=== PATIENT | male | born 1950 | race Caucasian/White ===

== ENCOUNTER 2018-04-20 12:22 | Outpatient (REF) | payer MEDICARE, BC, SELFPAY ==
[2018-04-20 14:23] LABS: COMMENT (LAB VIEW ONLY) 128.94 mg/dL; Microalb ug/mg Crea 40.9 ug/mg Cr
== END 2018-04-20 12:42 ==
LOC: NCHCN 12:22
PROVIDERS: PCP Family Medicine; Visit Provider Family Medicine
DX: E11.9 Type 2 diabetes mellitus without complications (principal)
CPT/HCPCS: 82043; 82570

== ENCOUNTER 2018-05-19 08:22 | Emergency (ER) | payer MEDICARE, BC, SELFPAY ==
[2018-05-19 08:25] VITALS: BP 169/67; PULSE 91; RESP 16; TEMP 36.6; O2SAT 98
[2018-05-19 08:44] LABS: Bilirubin Negative (Negative); Blood Moderate (Negative); Clarity Sl Cloudy; Glucose 250 mg/dL (Negative); Ketones Negative (Negative); Leukocyte Esterase Large (Negative); Nitrite Positive (Negative); Urobilinogen 0.2 EU/dL (Up TO 0.2); pH 6.5 (5-8)
[2018-05-19 08:51] LABS: Bacteria Moderate HPF (Negative); C & S Indicated? Yes; Casts Negative LPF (Negative); Crystals Negative HPF (Negative); Epithelial Cells Negative HPF (Negative); Mucus Negative (Negative); RBC 20-50 (0-2); WBC >50 HPF (0-5)
--- NOTE | 2018-05-19 09:22 | NUR.NOTE ---
Provider is at the bedside.
--- NOTE | 2018-05-19 09:27 | ED.GENADUL_ITS ---
Discharge Plan Disposition Patient Disposition: HOME Condition: Good Discharge Details Chief Complaint: Urinary Clinical Impression: Acute UTI, Contusion of knee Primary Care Provider: Tanner Oconnor ED Provider: Fito Sutton Home Meds and New Rx's Prescriptions: New sulfamethoxazole-trimethoprim [Bactrim DS] 800-160 mg tablet 1 tab PO BID Qty: 14 RF: 0 phenazopyridine [Pyridium] 100 mg tablet 100 mg PO TID 0 Days Qty: 6 RF: 0 No Action nitroglycerin 0.4 MG tablet, sublingual 0.4 mg Sublingual PRN RF: 0 amlodipine 10 MG tablet 10 mg PO DAILY RF: 0 losartan 100 MG tablet 100 mg PO DAILY RF: 0 aspirin 81 MG tablet,delayed release (DR/EC) 81 mg PO DAILY AM RF: 0 insulin lispro [Humalog U-100 Insulin] 100 UNIT/1 ML cartridge 100 unit SQ PER PROTOCOL RF: 0 rosuvastatin [Crestor] 20 MG tablet 20 mg PO DAILY AM RF: 0 levothyroxine [Tirosint] 50 MCG capsule 50 mcg PO DAILY RF: 0 dofetilide [Tikosyn] 250 mcg Capsule 250 mcg PO Q12H RF: 0 metoprolol succinate 50 MG tablet extended release 24 hr 50 mg PO BID RF: 0 clobetasol 15 GM cream 15 gm Topical DIRECTED RF: 0 furosemide 80 MG tablet 80 mg PO DAILY RF: 0 cholecalciferol (vitamin D3) [Vitamin D3] 2,000 UNIT tablet 2,000 unit PO DAILY RF: 0 rivaroxaban [Xarelto] 20 MG tablet 20 mg PO DAILY RF: 0 Discharge Instructions Instructions: Urinary Tract Infection in Men (ED), Contusion in Adults (ED) Referrals: Tanner Oconnor [Primary Care Provider] - Return if symptoms worsen Medical Decision Making Will x-ray right knee and UA. Low threshold to treat UTI in diabetic and history of spleenectomy with fever and chills. Pt apprised of Ua and x-ray results. He already sees Dr. Valles so we will place him on orthopedic list for f/u. Nurse fitted him for knee immobilizer, advised to partial weight bear until further instruction from Dr. Valles. His injury and pain is on the medial side of the knee. The x-ray mentioned the lateral side. I do not see a fracture. For the UTI we chose Bactrim over Cipro because Bactrim only has contraindications with Tykosin and Cipro has severe interaction. Pt aware and will return if he has in adverse side affects. Culture is pending. Imaging Data Radiologic Study: Imaging: X-Ray My impression: No acute fracture Radiologist's impression: V-Rad: 1. Small lucency along the articular surface of the lateral femoral condyle, suggesting osteochondral injury. This may been present on 03/15/13, now better visualized with positional differences. May consider MRI for better characterization. 2. Similiar degenrative changes. 3. Mild suprapatellar soft tissue fullness suggesting effusion and/or synovial hypertrophy. Lab Data Lab results reviewed: Yes I reviewed the patient's lab results. Lab results narrative: Positive nitrite, large leukocyte esterase, 20-50 RBC, > 50 WBC, and large amount of blood. Equals UTI. HPI General Date/Time Provider Initiated Documentation: 05/19/18 09:17 . Limitations to Documentation: no limitations . Information obtained by: patient . History of Present Illness 67 year old M presents to the emergency department with the chief complaint of UTI and knee pain, HPI Narrative: 67 y/o male here with c/o UTI symptoms and right knee pain. The uti symptoms started a few days ago with frequency and burning. Denies back pain but did have chills last night. He is a insulin dependent diabetic and tells me e is uncircumcised and is followed by urology. He has history of severe pancreatitis and has had multiple abdominal surgeries including spleenectomy. He also describes an injury to the right knee. Approximately one week ago he was carrying a bucket of sand when the bucket swung in and struck the medial side of his right knee. The was significantly swollen at the time but he did not think he needed evaluation at that time. He has been icing and elevating which helps with the swelling but not the pain. Related Data Home Medications Medication Instructions Recorded Confirmed aspirin 81 mg PO DAILY AM 09/05/12 05/19/18 insulin lispro [Humalog U-100 100 unit SQ PER PROTOCOL 09/05/12 05/19/18 Insulin] rosuvastatin [Crestor] 20 mg PO DAILY AM 09/05/12 05/19/18 nitroglycerin 0.4 mg SUBLINGUAL PRN 07/17/13 05/19/18 levothyroxine [Tirosint] 50 mcg PO DAILY 11/09/15 05/19/18 amlodipine 10 mg PO DAILY tab-cap 09/08/16 05/19/18 losartan 100 mg PO DAILY tab-cap 09/08/16 05/19/18 cholecalciferol (vitamin D3) 2,000 unit PO DAILY 02/10/17 05/19/18 [Vitamin D3] clobetasol 15 gm TOPICAL DIRECTED 02/10/17 05/19/18 furosemide 80 mg PO DAILY 02/10/17 05/19/18 metoprolol succinate 50 mg PO BID 02/10/17 05/19/18 rivaroxaban [Xarelto] 20 mg PO DAILY 02/10/17 05/19/18 dofetilide [Tikosyn] 250 mcg PO Q12H 05/19/18 05/19/18 phenazopyridine [Pyridium] 100 mg PO TID 0 Days #6 tab 05/19/18 sulfamethoxazole-trimethoprim 1 tab PO BID #14 tab 05/19/18 [Bactrim DS] Previous Rx's Medication Instructions Recorded phenazopyridine [Pyridium] 100 mg PO TID 0 Days #6 tab 05/19/18 sulfamethoxazole-trimethoprim 1 tab PO BID #14 tab 05/19/18 [Bactrim DS] Allergies Allergy/AdvReac Type Severity Reaction Status Date / Time nifedipine [From Procardia] AdvReac Severe Muscle Unverified 05/19/18 08:30 Spasm prochlorperazine maleate AdvReac Severe Muscle Unverified 05/19/18 08:30 [From Compazine] Spasm atorvastatin calcium AdvReac Muscle Unverified 05/19/18 08:30 [From Lipitor] Cramping General Stated Complaint: Urinary HELDER: 3 Review of Systems Cardiovascular Reports system reviewed and no additional complaints, except as docu Respiratory Reports system reviewed and no additional complaints, except as docu Gastrointestinal Reports system reviewed and no additional complaints, except as docu Genitourinary Reports urinary frequency, Reports urinary hesitancy, Reports urinary urgency and Reports other (burn with urination) Musculoskeletal Reports system reviewed and no additional complaints, except as docu PFSH Medical History Benign hypertension CORONARY ARTERY DISEASE Diabetes mellitus Hyperlipidemia Paroxysmal atrial fibrillation Social History Smoking/Tobacco Use Status: Never Surgical History EXCISION (09/10/08) Fasciectomy, Palmar (09/10/08) Repair, Rotator Cuff (09/12/12) Stent placement Exam Const General: cooperative, healthy appearing, comfortable and no acute distress Orientation: alert, awake and oriented x3 [facility] Head: atraumatic Ears: hearing grossly normal bilaterally and external ears normal General nose exam: external nose normal and nares normal Eyes General: appearance normal, both eyes and all related structures Neck Neck: normal visual inspection and full ROM Resp Effort & Inspection: normal respiratory effort and able to speak in complete sentences Auscultation: clear to auscultation bilaterally Cardio Rate: regular rate Rhythm: regular rhythm GI Inspection: scar (midline) Palpation: soft and tender in the LLQ; with no rebound tenderness Back/Spine/Pelvis Back: no CVA tenderness Skin General skin exam: no rashes or lesions noted Neuro General: alert, awake, oriented x3 and gait normal Extrem General: normal to inspection, full ROM (with pain) and no calf tenderness Right lower extremity: full ROM (with pain), normal capillary refill and knee Details: normal to inspection, tenderness Location: of the medial joint line, of the pre-patellar area and of the proximal tibia, abnormal ROM Details: pain with active ROM during Details: in flexion and pain with passive ROM during Details: in flexion and knee ligament exam normal; abnormal to inspection (well healed scar to midline of knee. ), no edema and joint enlargement noted Course Vital Signs Temperature 36.6 C 05/19/18 08:25 Pulse 91 H 05/19/18 08:25 Respiratory Rate 16 05/19/18 08:25 Blood Pressure 169/67 H 05/19/18 08:25 Pulse Oximetry 98 05/19/18 08:25 Temperature 36.6 C 05/19/18 08:25 Temperature Source Temporal Artery Scan 05/19/18 08:25 Pulse 91 H 05/19/18 08:25 Respiratory Rate 16 05/19/18 08:25 Respiratory Effort 05/19/18 09:04 Blood Pressure 169/67 H 05/19/18 08:25 Blood Pressure Position Sitting 05/19/18 08:25 Pulse Oximetry 98 05/19/18 08:25 Oxygen Delivery Method Room Air 05/19/18 08:25 Oxygen Flow Rate 0 05/19/18 08:25 Pain Level 0 05/19/18 08:25 Lab/Test Results Lab/Test Results: 05/19/18 08:35 Urine - Reflex from Ua Urine Culture - Pending Laboratory Tests Range/Units 05/19/18 08:35 Urine Color (Yellow) Yellow Urine Clarity Sl cloudy Urine pH (5-8) 6.5 Ur Specific [place] (1.005-1.025) 1.020 Urine Protein (Negative) mg/dL 100 H Urine Ketones (Negative) mg/dL Negative Urine Blood (Negative) Moderate H Urine Nitrite (Negative) Positive H Urine Bilirubin (Negative) Negative Urine Urobilinogen (Up TO 0.2) EU/dL 0.2 Ur Leukocyte Esterase (Negative) Large H Urine RBC (0-2) 20-50 H Urine WBC (0-5) HPF >50 Ur Epithelial Cells (Negative) HPF Negative Urine Crystals (Negative) HPF Negative Urine Bacteria (Negative) HPF Moderate Urine Casts (Negative) LPF Negative Urine Mucus (Negative) Negative Ur Culture Indicated? Yes Urine Glucose (Negative) mg/dL 250 H
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
[2018-05-19 10:39] VITALS: BP 143/76; PULSE 86
[2018-05-19] MEDS: Sulfameth/Trimeth DS TAB 1 TAB PO (10:45)
[2018-05-19] MEDS: Phenazopyridine 100 MG TAB PO (10:45)
== END 2018-05-19 10:44 | disposition home or self-care (01) ==
LOC: ER 10:49
PROVIDERS: Emergency Provider Nurse Practitioner Family; PCP Family Medicine
DX: N39.0 Urinary tract infection, site not specified (principal); B96.20 Unspecified Escherichia coli [E. coli] as the cause of diseases classified elsewhere; S80.01XA Contusion of right knee, initial encounter; W00.0XXA Fall on same level due to ice and snow, initial encounter
CPT/HCPCS: 29505; 73562; 87077; 99283; 81003; 81015; 87086; 87186; L1830

== ENCOUNTER → 2018-05-22 10:51 | Outpatient (BNVA) | payer MEDICARE, BC, SELFPAY | PROVIDERS: PCP Family Medicine; Referring Provider Family Medicine; Visit Provider Orthopaedic Surgery | DX: S80.01XA Contusion of right knee, initial encounter (principal); W00.0XXA Fall on same level due to ice and snow, initial encounter; I10 Essential (primary) hypertension; E11.9 Type 2 diabetes mellitus without complications; Z79.4 Long term (current) use of insulin | CPT/HCPCS: 99211; 99214 ==

== ENCOUNTER 2018-06-20 11:09 | Outpatient (REF) | payer MEDICARE, BC, SELFPAY ==
[2018-06-20 20:19] LABS: Anion Gap 6.4 mmol/L (3-11); BUN 18 mg/dL (7-18); CO2 32.6 mmol/L (21.0-32.0); CREATININE 0.98 mg/dL (0.70-1.30); Calcium 9.1 mg/dL (8.5-10.1); Chloride 102 mmol/L (98-107); Glucose 98 mg/dL (70-100); LDL CHOLESTEROL 66 mg/dL (<100); Magnesium 1.8 mg/dL (1.8-2.4); Potassium 4.1 mmol/L (3.5-5.1); Sodium 141 mmol/L (136-145); TSH (W/Ref FT4) 3.92 uIU/mL (0.358-3.74); Vitamin B12 579 pg/mL (193-986)
[2018-06-20 20:40] LABS: FREE T4 1.14 ng/dL (0.76-1.46)
== END 2018-06-20 11:29 ==
LOC: NCHCN 11:09
PROVIDERS: PCP Family Medicine; Visit Provider Family Medicine
DX: E78.5 Hyperlipidemia, unspecified (principal); I25.10 Atherosclerotic heart disease of native coronary artery without angina pectoris; E11.9 Type 2 diabetes mellitus without complications; E03.9 Hypothyroidism, unspecified
CPT/HCPCS: 80048; 83721; 82607; 83735; 84439; 84443

== ENCOUNTER 2019-04-03 19:02 | Emergency (ER) | payer OTHER, SELFPAY ==
[2019-04-03 19:31] VITALS: BP 147/61; PULSE 67; RESP 18; TEMP 36.4; O2SAT 97
[2019-04-03 21:11] LABS: Abs Immature Grans 0.03 k/cumm (0.0-0.09); Absolute Basophil Count 0.04 k/cumm (0.0-0.2); Absolute Eosinophil Count 0.17 k/cumm (0.0-0.7); Absolute Lymphocyte Count 2.33 k/cumm (1.2-3.4); Absolute Monocyte Count 1.02 k/cumm (0.11-0.7); Absolute Neutrophil Count 7.49 k/cumm (1.2-6.7); Basophils % 0.4; Eosinophils % 1.5; HCT 43.3 % (40.0-50.0); HGB 14.8 g/dL (13.5-17.5); Immature Grans % 0.3; Mean Corp. HGB Concentration 34.2 g/dL (32.0-36.0); Mean Corpuscular Hemoglobin 32.6 pg (27.0-33.0); Mean Corpuscular Volume 95.4 fL (80-95); Mean Platelet Volume 11.5 fL (8.0-11.0); Monocytes % 9.2; Neutrophils % 67.6; Platelet Count 236 x1000/uL (130-400); RBC 4.54 m/cumm (4.50-6.00); RBC Distribution Width 13.9 % (11.8-14.1); White Blood Cell Count 11.08 k/cumm (4.4-10.8)
[2019-04-03 21:21] LABS: Bilirubin Negative (Negative); Blood Moderate (Negative); Clarity Clear (Clear); Glucose 500 mg/dL (Negative); Ketones Negative (Negative); Leukocyte Esterase Negative (Negative); Nitrite Negative (Negative); Specific Gravity 1.015 (1.005-1.025); Urobilinogen 0.2 EU/dL (Up TO 0.2); pH 5.5 (5-8)
[2019-04-03 21:23] LABS: ALT 30 U/L (16-63); AST 25 U/L (15-37); Albumin 3.8 g/dL (3.4-5.0); Alkaline Phosphatase 121 U/L (46-116); Anion Gap 9.5 mmol/L (3-11); BUN 18 mg/dL (7-18); Bilirubin, Total 0.3 mg/dL (0.2-1.0); CO2 27.5 mmol/L (21.0-32.0); CREATININE 0.93 mg/dL (0.70-1.30); Calcium 8.6 mg/dL (8.5-10.1); Chloride 101 mmol/L (98-107); Glucose 225 mg/dL (70-100); Magnesium 2.1 mg/dL (1.8-2.4); Potassium 4.3 mmol/L (3.5-5.1); Sodium 138 mmol/L (136-145); Total Protein 8.1 g/dL (6.4-8.2)
[2019-04-03 21:29] LABS: *AMPHETAMINES SCREEN URINE Negative (Negative); *BARBITURATES SCREEN URINE Negative (Negative); *BENZODIAZEPINES SCREEN URINE Negative (Negative); Cannabinoids THC Negative (Negative); Cocaine Screen,Urine Negative (Negative); METHADONE URINE SCREEN Negative (Negative); OPIATES URINE SCREEN Negative (Negative)
[2019-04-03 21:30] LABS: Bacteria Negative HPF (Negative); C & S Indicated? No; Casts Negative LPF (Negative); Crystals Negative HPF (Negative); Epithelial Cells Negative HPF (Negative); Mucus Negative (Negative); RBC 20-50 (0-2)
[2019-04-03] MEDS: Acetaminophen 500 MG TAB 1000 MG PO (21:36)
[2019-04-03 21:40] LABS: Tricyclic Antidepressants Negative (Negative)
--- NOTE | 2019-04-03 22:09 | DI.RAD_ITS ---
EXAM: XR CLAVICLE RT INDICATION: fall, mid clavicular pain. COMPARISON: No exams were available for comparison TECHNIQUE: 2D digital imaging was performed. FINDINGS: Two views were obtained. There are marked degenerative changes involving the glenohumeral joint and there are suture anchors in the humeral head. There is a moderately displaced moderately comminuted mid clavicular fracture. No other acute fracture seen. IMPRESSION:
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
[2019-04-03 23:50] VITALS: BP 130/62; PULSE 64; RESP 16; O2SAT 95
--- NOTE | 2019-04-03 23:51 | NUR.NOTE ---
Sling applied to right arm. Discharge instructions reviewed with verbal understanding. Aware to f/u with ortho. Ambulated to exit with steady gait.
== END 2019-04-03 23:50 | disposition home or self-care (01) ==
PROVIDERS: Emergency Provider Nurse Practitioner Family; PCP Family Medicine
DX: S42.021A Displaced fracture of shaft of right clavicle, initial encounter for closed fracture (principal); E11.9 Type 2 diabetes mellitus without complications; I10 Essential (primary) hypertension; V17.0XXA Pedal cycle driver injured in collision with fixed or stationary object in nontraffic accident, initial encounter; Z79.4 Long term (current) use of insulin
CPT/HCPCS: 36415; 80053; 80307; 99283; 73000; 80320; 81003; 81015; 83735; 84443; 84484; 85025; 99282; L3650

== ENCOUNTER 2019-04-17 14:59 | Outpatient (CLI) | payer OTHER, SELFPAY ==
--- NOTE | 2019-04-17 14:46 | DI.RAD_ITS ---
EXAM: XR CLAVICLE RT INDICATION: F/U FRACTURE. COMPARISON: XR CLAVICLE RT from 04/03/2019 TECHNIQUE: 2D digital imaging was performed. FINDINGS: When compared with the previous examination of 04/03/2019, there has been no interval change in the ap position or alignment of the clavicular fracture.
== END 2019-04-17 15:19 ==
PROVIDERS: PCP Family Medicine; Referring Provider Family Medicine; Visit Provider Student in an Organized Health Care Education/Training Program
DX: S42.021A Displaced fracture of shaft of right clavicle, initial encounter for closed fracture (principal)
CPT/HCPCS: 99204; 99215; 73000

== ENCOUNTER 2019-05-06 18:49 | Outpatient (REF) | payer OTHER, SELFPAY ==
[2019-05-06 19:00] LABS: TSH (W/Ref FT4) 3.59 uIU/mL (0.36-3.74)
== END 2019-05-06 19:09 ==
LOC: NCHCN 18:49
PROVIDERS: PCP Family Medicine; Visit Provider Family Medicine
DX: E03.9 Hypothyroidism, unspecified (principal)
CPT/HCPCS: 84443

== ENCOUNTER 2019-12-31 13:12 | Outpatient (REF) | payer OTHER, SELFPAY ==
[2020-01-04 19:28] LABS: SARS-CoV-2 RNA Undetected (Undetected)
== END 2019-12-31 13:32 ==
LOC: NCHCN 13:12
PROVIDERS: Nurse Practitioner Family; PCP Family Medicine; Visit Provider Family Medicine
DX: Z20.828 Contact with and (suspected) exposure to other viral communicable diseases (principal)
CPT/HCPCS: U0003

== ENCOUNTER 2020-01-17 04:03 | Outpatient (CLI) | payer OTHER, SELFPAY ==
--- NOTE | 2020-01-17 | DI.CT_ITS ---
EXAM: CT ABDOMEN PELVIS WO/W CLINICAL HISTORY: HEMATURIA,R31.9,RT FLANK PAIN,R10.9 TECHNIQUE: Imaging Protocol: Axial computed tomography images with coronal and sagittal reformatted images were created and reviewed CONTRAST MATERIAL: Intravenous: Omnipaque 350 Contrast volume:100 mL Oral: No COMPARISON: CT RENAL COLIC WO CONTRAST from 02/22/2014 FINDINGS: ABDOMEN: Lung Bases: Normal where visualized. Liver: Normal density. No measurable mass. Portal, Superior Mesenteric, and Splenic Veins: Unremarkable. Gallbladder and Biliary Tract: Cholelithiasis. No biliary ductal dilatation. Pancreas: Normal density, no abnormal calcifications or inflammatory process. Spleen: There are 2 splenules again seen in the left upper quadrant. Adrenals: No masses seen. Kidneys: Normal size, contour and axis. 6 mm non-obstructing stone in the lower pole of the left kidn ey. Bilateral renal cysts. Abdominal Aorta: Abdominal portion non-dilated. Atherosclerosis. Bowel: No obstruction or bowel wall thickening. Appendix is unremarkable. Peritoneal Cavity: No ascites, collection or mesenteric inflammatory response. Lymph Nodes: Within normal limits. Bones: Degenerative changes. Soft Tissues: The patient appears to have a penile implant. Bilateral fat containing inguinal hernia . PELVIS: Bladder: Symmetric distention, no gross wall thickening. Reproductive Organs: Enlarged prostate gland. Lymph Nodes: Within normal limits. Bones: Degenerative changes. IMPRESSION: 1. Left nephrolithiasis no obstructive uropathy. 2. Cholelithiasis. No biliary ductal dilatation. 3. No acute abdominal or pelvic process. RADIATION DOSE DELIVERED: Total DLP Total DLP DATA REPOSITORY: All CT scans at this facility are submitted to the National Radiology Data Registry (NRDR) Dose Index Registry (DIR) with the [employer] ([employer]). RADIATION OPTIMIZATION: All CT scans at this facility use at least one of these dose optimization te chniques: automated exposure control; mA and/or kV adjustment per patient size (includes targeted exa ms where dose is matched to clinical indication); or iterative reconstruction.
[2020-01-17 08:47] LABS: CREATININE 0.82 mg/dL (0.70-1.30)
[2020-01-17] MEDS: Omnipaque 350 MG/ML 100 ML BTL IV (09:20)
[2020-01-17] MEDS: Normal Saline Flush 10 ML SYR IVP (09:21)
[2020-01-17] MEDS: Normal Saline - Diluent 50 ML VIAL IV (09:21)
== END 2020-01-17 04:23 ==
PROVIDERS: PCP Family Medicine; Visit Provider Family Medicine
DX: Z13.9 Encounter for screening, unspecified (principal); N20.0 Calculus of kidney; K80.20 Calculus of gallbladder without cholecystitis without obstruction
CPT/HCPCS: 74178; 82565; J3490

== ENCOUNTER 2020-02-11 22:13 | Outpatient (REF) | payer OTHER, SELFPAY ==
[2020-02-11 20:14] LABS: Anion Gap 9.4 mmol/L (3-11); BUN 19 mg/dL (7-18); CO2 27.6 mmol/L (21.0-32.0); CREATININE 0.98 mg/dL (0.70-1.30); Calcium 8.7 mg/dL (8.5-10.1); Chloride 103 mmol/L (98-107); Glucose 369 mg/dL (74-106); Magnesium 2.1 mg/dL (1.8-2.4); Sodium 140 mmol/L (136-145); TSH (W/Ref FT4) 3.21 uIU/mL (0.36-3.74)
== END 2020-02-11 22:33 ==
LOC: NCHCN 22:13
PROVIDERS: PCP Family Medicine; Visit Provider Family Medicine
DX: I25.10 Atherosclerotic heart disease of native coronary artery without angina pectoris (principal); E03.9 Hypothyroidism, unspecified; R60.0 Localized edema
CPT/HCPCS: 80048; 83735; 84443

== ENCOUNTER 2020-03-13 12:23 | Outpatient (REF) | payer OTHER, SELFPAY | END 2020-03-13 12:43 | LOC: LBN 12:23 | PROVIDERS: PCP Family Medicine; Visit Provider Urology | DX: R39.9 Unspecified symptoms and signs involving the genitourinary system (principal) | CPT/HCPCS: 87077; 87086; 87186 ==

== ENCOUNTER 2020-03-16 10:40 | Outpatient (REF) | payer OTHER, SELFPAY ==
[2020-03-16 19:08] LABS: BUN 15 mg/dL (7-18); CREATININE 0.98 mg/dL (0.70-1.30); Calcium 8.4 mg/dL (8.5-10.1); Chloride 103 mmol/L (98-107); Glucose 296 mg/dL (74-106); Potassium 3.8 mmol/L (3.5-5.1); Sodium 139 mmol/L (136-145)
== END 2020-03-16 11:00 ==
LOC: NCHCN 10:40
PROVIDERS: PCP Family Medicine; Visit Provider Family Medicine
DX: I10 Essential (primary) hypertension (principal)
CPT/HCPCS: 80048

== ENCOUNTER 2020-11-10 21:29 | Outpatient (REF) | payer OTHER, SELFPAY ==
[2020-11-10 13:26] LABS: HCT 29.8 % (40.0-50.0); HGB 9.6 g/dL (13.5-17.5); MCH 29.7 pg (27.0-33.0); MCHC 32.2 % (32.0-36.0); MCV 92.3 fL (80-95); MPV 11.3 fL (8.0-11.0); Platelet Count 303 10^3/uL (130-400); RBC 3.23 10^6/uL (4.36-5.78); RDW-SD 50.9 fL; WBC 5.46 10^3/uL (4.4-10.8)
[2020-11-10 14:18] LABS: Iron 29 ug/dL (65-175); Total Iron Binding Capacity 308 ug/dL (250-450); Transferrin Sat 9 % (20-55)
[2020-11-10 14:27] LABS: Anion Gap 7.7 mmol/L (3-11); BUN 19 mg/dL (7-18); CO2 30.3 mmol/L (21.0-32.0); CREATININE 1.2 mg/dL (0.70-1.30); Calcium 8.4 mg/dL (8.5-10.1); Chloride 101 mmol/L (98-107); Estimated GFR 59.86 (mL/min/1.73m2); Glucose 213 mg/dL (74-106); Potassium 3.6 mmol/L (3.5-5.1); Sodium 139 mmol/L (136-145)
[2020-11-11 09:58] LABS: Hepatitis C Ab w Rflx HCV PCR Negative (Negative)
== END 2020-11-10 21:30 | disposition home or self-care (01) ==
LOC: NCHCN 21:29
PROVIDERS: PCP Family Medicine; Visit Provider Family Medicine
DX: I10 Essential (primary) hypertension (principal); E11.9 Type 2 diabetes mellitus without complications; D64.9 Anemia, unspecified; Z11.59 Encounter for screening for other viral diseases
CPT/HCPCS: 80048; 85027; 86803; 83540; 83550

== ENCOUNTER 2021-12-23 10:19 | Outpatient (REF) | payer OTHER, SELFPAY ==
[2021-12-24 10:58] LABS: COVID-19 RT-PCR UVMMC Result Negative (Negative)
== END 2021-12-23 10:20 | disposition home or self-care (01) ==
LOC: LBN 10:19
PROVIDERS: PCP Family Medicine; Visit Provider Physician Assistant Medical
DX: Z20.822 Contact with and (suspected) exposure to COVID-19 (principal)
CPT/HCPCS: U0003; U0005

== ENCOUNTER 2022-01-07 11:48 | Outpatient (REF) | payer OTHER, SELFPAY ==
[2022-01-07 13:11] LABS: ALT 52 U/L (16-63); AST 36 U/L (15-37); Albumin 3.6 g/dL (3.4-5.0); Alkaline Phosphatase 124 U/L (46-116); Anion Gap 11.1 mmol/L (3-11); BUN 33 mg/dL (7-18); Bilirubin, Total 0.5 mg/dL (0.2-1.0); CO2 29.9 mmol/L (21.0-32.0); CREATININE 1.4 mg/dL (0.70-1.30); Calcium 9.1 mg/dL (8.5-10.1); Chloride 95 mmol/L (98-107); Estimated GFR 49.96 (mL/min/1.73m2); Glucose 369 mg/dL (74-106); Potassium 3.2 mmol/L (3.5-5.1); Sodium 136 mmol/L (136-145); Total Protein 8.3 g/dL (6.4-8.2)
== END 2022-01-07 11:49 | disposition home or self-care (01) ==
LOC: LBN 11:48
PROVIDERS: PCP Family Medicine; Visit Provider Physician Assistant Medical
DX: U07.1 COVID-19 (principal)
CPT/HCPCS: 80053

== ENCOUNTER 2023-02-08 17:15 | Inpatient (IN) | payer MEDICARE, SELFPAY ==
[2023-02-08] VITALS (40 sets, daily range): BP systolic 115–149; BP diastolic 47–104; PULSE 57–102; RESP 14–29; TEMP 38.3; O2SAT 84–95
--- NOTE | 2023-02-08 17:00 | RT.EKG_ITS ---
APPROVED REPORT Exam: Resting ECG Reason for Exam: sob Patient Location: E HR:97 bpm ECG Measurements Heart Rate 97 AXIS TX [id number] P [id number] QRSd 100 QRS 43 QT 449 T 59 QTc 571 Conclusion Atrial fibrillation...V-rate 61-133, irreg A-activity Prolonged QT interval...QTc >500mS QT corrected (Bazett) 407. Nonspecific STTW changes, no STEMI
[2023-02-08 17:49] LABS: BE (Venous) 8 mmol/L (-2-3); HCO3 (Venous) 31 mmol/L (23-28); O2 Sat (Venous) 74 %; TCO2 (Venous) 28 mmol/L (24-29); pCO2 (Venous) 41 mmHg (41-51); pH (Venous) 7.49 (7.31-7.41); pO2 (Venous) 38 mmHg
[2023-02-08 17:51] LABS: Abs Immature Grans 0.39 10^3/uL (0.0-0.06); HCT 38.9 % (40.0-50.0); HGB 13.7 g/dL (13.5-17.5); MCH 33.6 pg (27.0-33.0); MCHC 35.2 % (32.0-36.0); MCV 95 fL (80-95); Platelet Count 213 10^3/uL (130-400); RBC 4.08 10^6/uL (4.36-5.78)
[2023-02-08 17:52] LABS: Lactate 4.8 mmol/L (0.6-1.4)
[2023-02-08 18:03] LABS: INR 1.4 (0.9-1.1); PTT Activated 27.9 sec (21.5-31.9); Prothrombin Time 13.8 sec (9.3-11.0)
[2023-02-08] MEDS: Acetaminophen 500 MG TAB PO (18:12)
[2023-02-08] MEDS: HYDROcodone 5/Acetaminophen 325 TAB PO (18:13)
[2023-02-08] MEDS: cefTRIAXone 2 GM/50 ML BAG IVPB (18:13)
[2023-02-08] MEDS: VANCOMYCIN 1,000 MG in Normal Saline 250 ML 166.6666 MG IVPB (18:14)
[2023-02-08] MEDS: Normal Saline 1,000 ML 1000 ML IV (18:15)
[2023-02-08 18:16] LABS: ALT 30 U/L (16-63); AST 30 U/L (15-37); Albumin 3.4 g/dL (3.4-5.0); Alkaline Phosphatase 86 U/L (46-116); Anion Gap 10.3 mmol/L (3-11); BUN 28 mg/dL (7-18); Bilirubin, Total 1.5 mg/dL (0.2-1.0); CO2 31.7 mmol/L (21.0-32.0); CREATININE 1.6 mg/dL (0.70-1.30); Calcium 9.5 mg/dL (8.5-10.1); Chloride 101 mmol/L (98-107); Glucose 118 mg/dL (74-106); Magnesium 1.5 mg/dL (1.8-2.4); Sodium 143 mmol/L (136-145); TSH (W/Ref FT4) 7.32 uIU/mL (0.36-3.74); Total Protein 8.2 g/dL (6.4-8.2)
[2023-02-08 18:20] LABS: Potassium 2.7 mmol/L (3.5-5.1)
[2023-02-08 18:26] LABS: Absolute Basophil Count 0.28 10^3/uL (0.0-0.2); Absolute Lymphocyte Count 0.28 10^3/uL (1.2-3.4); Absolute Monocyte Count 1.14 10^3/uL (0.1-0.8); Absolute Neutrophil Count 26.41 10^3/uL (1.2-6.7); Bands % 8
[2023-02-08 18:27] LABS: Diff Comment Manual Differential; Metamyelocytes % 1
[2023-02-08 18:30] LABS: RBC Morphology Normal
--- NOTE | 2023-02-08 18:34 | W.ED.GENAD ---
Discharge Plan Disposition Patient Disposition: Home Discharge Details Clinical Impression: Cellulitis, Acidosis, lactic, Fever, Hypokalemia, Nausea & vomiting, Leukocytosis, Insulin dependent type 2 diabetes mellitus, controlled Primary Care Provider: Tanner Oconnor ED Provider: Shantel Galarza Discharge Data Discharge Physician: Shantel Galarza Medical Decision Making This is a 72-year-old male, with history of atrial fibrillation on Xarelto who is status post pancreatectomy and splenectomy who is brought in with confusion and fever. He is alert and oriented currently in appears to have capacity make medical decisions. He has cellulitis of the left lower extremity. He has not had any URI symptoms or abdominal pain though he did have some nausea and vomiting earlier today. He also had some altered mental status but appears to be back to his baseline. He has no meningeal signs or headache currently. He is febrile. His neurologic exam is normal here. 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 He is also a diabetic secondary to a pancreatectomy which he says is not secondary to alcohol or gallstones but sounds as though it may have been secondary to an obstructed pancreatic duct from likely biliary etiology. My plan is to obtain blood work blood cultures and inflammatory markers. I will cover him with vancomycin and Rocephin. He does not appear septic currently with a good blood pressure. He likely requires admission given his altered mental status and high fever. Again I am concerned about his history of diabetes and splenectomy. I will obtain a chest x-ray to rule out pneumonia we will check urine for evidence of UTI and I will obtain a plain film of the left lower extremity to rule out necrotizing fasciitis. I will write for pain medication Differential Diagnosis Differential Diagnosis: Cellulitis, necrotizing fasciitis, DVT Medical Records Medical records reviewed: Yes I reviewed the patient's medical records. Imaging Data Radiologic Study: Imaging: X-Ray (Left tib-fib) Radiologist's impression: Impression: Soft tissue swelling and chronic findings as noted no acute fracture. Radiologic Study #2: Imaging: X-Ray (Chest x-ray) Radiologist's impression: No acute disease Lab Data Lab results reviewed: Yes I reviewed the patient's lab results. Lab results narrative: Leukocytosis, lactic acidosis. Left shift. Respiratory alkalosis, hypokalemia hypomagnesemia blood sugars 118. Slight decrease in renal function with a GFR of 45.5 elevated TSH but normal free T4 respiratory panel negative HPI General Date/Time Provider Initiated Documentation: 02/08/23 17:42. Limitations to Documentation: altered mental status. Information obtained by: patient, family, EMS, RN notes reviewed and old records reviewed. HPI Narrative: Time seen was on arrival in bed 1. The patient is a 72-year-old male who is brought in by EMS for confusion and altered mental status. In route the patient complained of nausea and received Zofran in route. He was also noted to have an elevated temperature of 103+ degrees Fahrenheit in route. He is also complaining of left leg pain redness and swelling which began several days ago following a abrasion to the left lateral ankle. The patient has had a pancreatectomy and splenectomy and is an insulin-dependent diabetic. His insulin pump recorded a blood sugar of 70 but a simultaneous fingerstick blood sugar in the field and on arrival was greater than 100 and was 140 in the field. The patient has some amnesia of about the events that occurred today but on arrival he is alert and oriented and according to his son is currently back to baseline. He denies any headache, stiff neck, rashes, chest pain or abdominal pain. He denies diarrhea but did have some nausea and vomiting earlier today and received Zofran in route. He tells me that he vomits fairly easily and is no longer nauseated. He was not aware he was running a fever. He has had COVID and has been fully immunized. He denies any respiratory symptoms. He does have some chronic visual disturbances from of retinal or vitreous hemorrhage which was treated with an intraocular injection. He denies any new changes in vision. He denies any dysuria cough or shortness of breath. He denies any other aggravating or alleviating factors other than the pain in his leg is aggravated by ambulation and palpation. The patient tells me that he has received his additional vaccines since his splenectomy. He says he has had his H. influenzae and pneumococcal vaccines. Related Data Home Medications Medication Instructions Recorded Confirmed aspirin 81 mg tablet,delayed 81 mg PO DAILY AM 09/05/12 02/08/23 release insulin lispro 100 unit/mL 100 unit SQ PER PROTOCOL 09/05/12 02/08/23 subcutaneous cartridge (Humalog U-100 Insulin) rosuvastatin 20 mg tablet (Crestor) 20 mg PO DAILY AM 09/05/12 05/22/18 nitroglycerin 0.4 mg sublingual 0.4 mg sublingual PRN 07/17/13 02/08/23 tablet levothyroxine 50 mcg capsule 50 mcg PO DAILY 11/09/15 02/08/23 (Tirosint) amlodipine 10 mg tablet 10 mg PO DAILY 09/08/16 02/08/23 losartan 100 mg tablet 100 mg PO DAILY 09/08/16 02/08/23 cholecalciferol (vitamin D3) 50 2,000 unit PO DAILY 02/10/17 02/08/23 mcg (2,000 unit) tablet (Vitamin D3) clobetasol 0.05 % topical cream 15 gm topical DIRECTED 02/10/17 05/22/18 furosemide 80 mg tablet 80 mg PO DAILY 02/10/17 02/08/23 rivaroxaban 20 mg tablet (Xarelto) 20 mg PO DAILY 02/10/17 02/08/23 dofetilide 250 mcg capsule 250 mcg PO Q12H 05/19/18 05/22/18 (Tikosyn) hydrochlorothiazide 12.5 mg capsule 12.5 mg PO DAILY 04/17/19 02/08/23 gabapentin 600 mg tablet 600 mg PO 3XD 02/08/23 02/08/23 Allergies Allergy/AdvReac Type Severity Reaction Status Date / Time nifedipine [From Procardia] AdvReac Severe Muscle Verified 02/08/23 19:34 Spasm prochlorperazine maleate AdvReac Severe Muscle Verified 02/08/23 19:34 [From Compazine] Spasm atorvastatin calcium AdvReac Muscle Verified 02/08/23 19:34 [From Lipitor] Cramping General Stated Complaint: AMS/LOC HELDER: 3 Review of Systems Constitutional Constitutional: Reports as per HPI, Reports fever(s) and Denies headache(s) Eyes Eyes: Reports as per HPI ENT Ears, Nose, Mouth, and Throat: Denies dental pain, Denies headache(s), Denies nasal congestion and Denies sore throat Cardiovascular Cardiovascular: Denies chest pain and Denies dyspnea Comments: The patient does have a history of atrial fibrillation and is on Xarelto. He denies any falls, or dizziness. Respiratory Respiratory: Denies change in phlegm color, Denies chest congestion, Denies cough and Denies dyspnea Gastrointestinal Gastrointestinal: Denies abdominal pain, Denies hematochezia, Denies coffee ground emesis, Denies diarrhea, Reports nausea and Reports vomiting Genitourinary Genitourinary: Denies dysuria Musculoskeletal Comments: Pain and swelling and redness in the left lower extremity following an abrasion Integumentary/Breasts Comments: Superficial abrasion of the left lateral ankle with subsequent erythema swelling tenderness of the left lower calf. He does have some tender inguinal adenopathy on the left. The left calf is tender and erythematous. There is no fluctuance or purulent discharge. There is no subcutaneous emphysema. He is neurovascularly intact distally. He has a strong dorsalis pedis pulse. No joint swelling or effusions Neurologic Neurologic: Denies headache(s) Comments: The patient had some confusion earlier but is currently alert and oriented x4. Endocrine Comments: The patient is an insulin-dependent diabetic status post pancreatectomy Hematologic/Lymphatic Comments: The patient takes Xarelto for atrial fibrillation Allergic/Immunologic Allergic/Immunologic: Reports system reviewed and no additional complaints, except as documented and Reports as per [facility] PFS All Active Problems Hypothyroidism (acquired) (Acute) Hypomagnesemia (Acute) Type 1 diabetes mellitus on insulin therapy (Acute) Cellulitis (Acute) Acidosis, lactic (Acute) Fever (Acute) Hypokalemia (Acute) Nausea & vomiting (Acute) Leukocytosis (Acute) Insulin dependent type 2 diabetes mellitus, controlled (Acute) Right clavicle fracture (Acute 04/03/19) DJD (degenerative joint disease) of knee (Acute 03/15/13) Medical History Benign hypertension CORONARY ARTERY DISEASE Diabetes mellitus Hyperlipidemia Paroxysmal atrial fibrillation Surgical History EXCISION (09/10/08) ununited fracture fragment tip of olecranon as well as bursa left elbow Fasciectomy, Palmar (09/10/08) NODULAR ON THE LEFT Repair, Rotator Cuff (09/12/12) RIGHT Stent placement 2000, 2011 Social History Smoking/Tobacco Use Status: Never Smoking risk assessment performed?: Yes Alcohol Intake: former Drug use: Never Housing: house Current gender identity: female Do you feel safe at home: Yes Do you feel safe in your relationship?: Yes Exam Narrative Exam Narrative: The patient is a well-developed well-nourished male sitting in bed in no acute distress. His blood pressure is 145/50. Initial heart rate was 10 1 repeat was 77 he was febrile to 38.3. His room air O2 sat was normal at 95%. He did not appear in acute distress. His GCS is 15. He is alert and oriented x4 Const General: cooperative, healthy appearing, comfortable, no acute distress, well developed, well groomed and well hydrated Nutritional Appearance: average body habitus and well nourished Orientation: alert, awake and oriented x3 HENMT Head: normal to inspection, normocephalic and atraumatic Ears: hearing grossly normal bilaterally and external ears normal General nose exam: external nose normal, nares normal and no nasal discharge Face and sinus: normal facial exam, sinuses nontender and face symmetric Mouth: oral mucosae normal, lip normal, tongue normal, oropharynx normal, moist mucous membranes and other (Normal phonation. The patient is handling secretions.) Throat: posterior oropharynx normal and uvula midline Eyes General: appearance normal, both eyes and all related structures Eyelids: eyelids normal Conjunctivae: conjunctivae normal Sclera: sclerae normal Cornea: corneas normal Pupils: PERRL EOM: EOM intact bilaterally and No nystagmus Direct ophthalmoscopy: photophobia not present Other: No photophobia Neck Neck: normal visual inspection, full ROM, no lymphadenopathy, no meningeal signs, trachea midline and supple Lymphatic: no lymphadenopathy noted Chest Chest: normal inspection of the chest Resp Effort & Inspection: normal respiratory effort, able to speak in complete sentences, no audible wheezes, no nasal flaring, no respiratory distress, no retractions, no stridor, not tachypneic, no tracheal deviation, no use of accessory muscles, No prolonged expiratory phase and other (Normal inspiratory to expiratory ratio.) Auscultation: clear to auscultation bilaterally, no rales, no rhonchi, no wheezes and no rubs Tactile Fremitus: tactile fremitus absent Cardio Jugular venous pressure: no JVD Palpation: normal PMI Rate: regular rate Rhythm: abnormal rhythm irregularly irregular Heart Sounds: S1 normal, S2 normal, no gallops, no murmurs and no rubs GI Inspection: no abdominal wall ecchymosis and non-distended Palpation: soft, no hepatosplenomegaly, no guarding and nontender Percussion: normal to percussion Auscultation: normal bowel sounds Other: His abdomen reveals 2 well-healed surgical scars 1 in the midline in the supraumbilical area and another vertical small incision in the left lateral abdomen General: No CVA tenderness Back/Spine/Pelvis Back: no CVA tenderness and No back tenderness Cervical Spine: normal cervical lordosis, cervical ROM normal, No cervical muscular tenderness, No pain with cervical ROM, No cervical spinal tenderness and No step off deformity Thoracic/Lumbar Spine: thoracic and lumbar spine normal to inspection, No thoracic spinal tenderness and No lumbar spinal tenderness Pelvis: no pain with anterior-posterior compression and no pain with lateral compression Skin General skin exam: no rashes or lesions noted, turgor normal, no petechiae, no purpura and other (Skin is normal for ethnicity.) Lesions: no lesions Trauma: no lacerations or abrasions Other: The left lower extremity reveals warmth tenderness and erythema of the left calf beginning at the ankle and extending two th[address] the way up the lower leg. There is a well-healing abrasion of the lateral aspect just superior to the lateral malleolus. There is no purulent discharge or fluctuance. There is no subcutaneous emphysema. He does have some tender inguinal adenopathy. 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 Neuro General: patient alert, patient awake, patient oriented x3, moves all extremities, no meningeal signs, no focal motor deficits and CN's II-XI intact bilaterally Cranial Nerves: CN's II-XI intact bilaterally, PERRL, accommodation normal, EOM intact bilaterally, no nystagmus, facial strength normal, tongue midline, hearing normal and no nystagmus Cognition: normal cognition Speech: speech normal Gait: normal gait Motor: muscle tone normal throughout and strength 5/5 throughout Sensory Exam: no sensory deficits noted Extrem General: no clubbing, cyanosis or edema Other: Tenderness warmth erythema and swelling of the left lower extremity as described under skin exam above. He has some tender left-sided inguinal adenopathy. I cannot appreciate any subcutaneous emphysema or lymphangitis. There is a well-healing abrasion just superior to the lateral malleolus. No purulent material or retained foreign bodies noted Psych Appearance: grossly normal Affect: normal affect Attitude: cooperative Thought Process: normal Thought Content: normal Insight: insight good Judgment: judgment good Other: The patient appears to have capacity make medical decisions. Course Reevaluation(s) Reevaluation: The patient is remained stable emergency department Vital Signs Vital signs: Vital Signs Temperature 38.3 C H 02/08/23 17:17 Pulse 101 H 02/08/23 17:17 Respiratory Rate 14 02/08/23 17:17 Blood Pressure 145/50 H 02/08/23 17:17 Pulse Oximetry 95 02/08/23 17:17 Temperature 38.3 C H 02/08/23 17:17 Temperature Source Oral 02/08/23 17:17 Pulse 101 H 02/08/23 17:17 Respiratory Rate 14 02/08/23 17:17 Respiratory Effort Normal, Non-Labored 02/08/23 17:48 Respiratory Depth Normal 02/08/23 17:48 Respiratory Pattern Normal 02/08/23 17:48 Blood Pressure 145/50 H 02/08/23 17:17 Blood Pressure Position Sitting 02/08/23 17:17 Pulse Oximetry 95 02/08/23 17:17 Oxygen Delivery Method Room Air 02/08/23 17:17 Oxygen Flow Rate 0 02/08/23 17:17 Pain Level 9 02/08/23 17:17 Comment left ankle 02/08/23 17:17 Lab/Test Results Lab/Test Results: 02/08/23 17:42 Blood Blood Culture - Pending 02/08/23 17:14 Blood Blood Culture - Pending Laboratory Tests Range/Units 02/08/23 02/08/23 02/08/23 17:42 17:42 17:42 WBC (4.4-10.8) 10^3/uL 28.40 H* RBC (4.36-5.78) 10^6/uL 4.08 L Hgb (13.5-17.5) g/dL 13.7 Hct (40.0-50.0) % 38.9 L MCV (80-95) fL 95 MCH (27.0-33.0) pg 33.6 H MCHC (32.0-36.0) % 35.2 RDW (11.8-14.1) % 14.0 Plt Count (130-400) 10^3/uL 213 MPV (8.0-11.0) fL 11.0 Immature Gran % See Differential Neutrophils % 85.0 Band Neutrophils % 8 Lymphocytes % 1.0 Monocytes % 4.0 Eosinophils % 0.0 Basophils % 1.0 Metamyelocytes % 1 Nucleated RBC % (0.0-0.3) % 0.0 Absolute Neutrophils (1.2-6.7) 10^3/uL 26.41 H Absolute Lymphocytes (1.2-3.4) 10^3/uL 0.28 L Absolute Monocytes (0.1-0.8) 10^3/uL 1.14 H Absolute Eosinophils (0.0-0.7) 10^3/uL 0.00 Absolute Basophils (0.0-0.2) 10^3/uL 0.28 H RBC Morphology Normal PT (9.3-11.0) sec INR (0.9-1.1) APTT (21.5-31.9) sec VBG pH (7.31-7.41) VBG pCO2 (41-51) mmHg VBG pO2 mmHg VBG HCO3 (23-28) mmol/L VBG Total CO2 (24-29) mmol/L VBG O2 Saturation % VBG Base Excess (-2-3) mmol/L VBG Lactate (0.6-1.4) mmol/L 4.8 H* Sodium (136-145) mmol/L 143 Potassium (3.5-5.1) mmol/L 2.7 L* Chloride (98-107) mmol/L 101 Carbon Dioxide (21.0-32.0) mmol/L 31.7 Anion Gap (3-11) mmol/L 10.3 BUN (7-18) mg/dL 28 H Creatinine (0.70-1.30) mg/dL 1.6 H Est GFR (CKD-EPI 2020) (mL/min/1.73m2) 45.50 Glucose (74-106) mg/dL 118 H Calcium (8.5-10.1) mg/dL 9.5 Magnesium (1.8-2.4) mg/dL 1.5 L Total Bilirubin (0.2-1.0) mg/dL 1.5 H AST (15-37) U/L 30 ALT (16-63) U/L 30 Alkaline Phosphatase (46-116) U/L 86 Total Protein (6.4-8.2) g/dL 8.2 Albumin (3.4-5.0) g/dL 3.4 TSH (0.36-3.74) uIU/mL 7.32 H COVID-19 Source SARS-CoV-2 (PCR) Influenza Type A (PCR) Influenza Type B (PCR) RSV (PCR) Range/Units 02/08/23 02/08/23 02/08/23 17:42 17:42 18:22 WBC (4.4-10.8) 10^3/uL RBC (4.36-5.78) 10^6/uL Hgb (13.5-17.5) g/dL Hct (40.0-50.0) % MCV (80-95) fL MCH (27.0-33.0) pg MCHC (32.0-36.0) % RDW (11.8-14.1) % Plt Count (130-400) 10^3/uL MPV (8.0-11.0) fL Immature Gran % Neutrophils % Band Neutrophils % Lymphocytes % Monocytes % Eosinophils % Basophils % Metamyelocytes % Nucleated RBC % (0.0-0.3) % Absolute Neutrophils (1.2-6.7) 10^3/uL Absolute Lymphocytes (1.2-3.4) 10^3/uL Absolute Monocytes (0.1-0.8) 10^3/uL Absolute Eosinophils (0.0-0.7) 10^3/uL Absolute Basophils (0.0-0.2) 10^3/uL RBC Morphology PT (9.3-11.0) sec 13.8 H INR (0.9-1.1) 1.4 H APTT (21.5-31.9) sec 27.9 VBG pH (7.31-7.41) 7.49 H VBG pCO2 (41-51) mmHg 41 VBG pO2 mmHg 38 VBG HCO3 (23-28) mmol/L 31 H VBG Total CO2 (24-29) mmol/L 28 VBG O2 Saturation % 74 VBG Base Excess (-2-3) mmol/L 8 H VBG Lactate (0.6-1.4) mmol/L Sodium (136-145) mmol/L Potassium (3.5-5.1) mmol/L Chloride (98-107) mmol/L Carbon Dioxide (21.0-32.0) mmol/L Anion Gap (3-11) mmol/L BUN (7-18) mg/dL Creatinine (0.70-1.30) mg/dL Est GFR (CKD-EPI 2020) (mL/min/1.73m2) Glucose (74-106) mg/dL Calcium (8.5-10.1) mg/dL Magnesium (1.8-2.4) mg/dL Total Bilirubin (0.2-1.0) mg/dL AST (15-37) U/L ALT (16-63) U/L Alkaline Phosphatase (46-116) U/L Total Protein (6.4-8.2) g/dL Albumin (3.4-5.0) g/dL TSH (0.36-3.74) uIU/mL COVID-19 Source Cancelled SARS-CoV-2 (PCR) Cancelled Influenza Type A (PCR) Cancelled Influenza Type B (PCR) Cancelled RSV (PCR) Cancelled
[2023-02-08 18:35] LABS: FREE T4 1.24 ng/dL (0.76-1.46); Procalcitonin 5.5 ng/mL
--- NOTE | 2023-02-08 18:57 | DI.RAD_ITS ---
Exam(s) XR TIB/FIB LT EXAM: XR TIB/FIB LT CLINICAL HISTORY: cellulitis rule out nec fasc. TECHNIQUE: 2D digital imaging was performed. COMPARISON: No exams were available for comparison FINDINGS: 3 views There is prominent soft tissue swelling over the medial malleolus-medial ankle but no obvious fractur e nor widening of the ankle mortise. Talar dome appears unremarkable. No fractures higher up in the tibia and fibula. There is vascular calcification noted in the runoff arteries of the calf as well as the popliteal artery indicating significant atherosclerotic involvement. There is no evidence of osteomyelitis. Bone density normal. No osseous lesions. No radiopaque foreign body evident IMPRESSION: Soft tissue swelling. No acute osseous findings. DATA REPOSITORY: RADIATION DOSE DELIVERED:
--- NOTE | 2023-02-08 19:03 | DI.RAD_ITS ---
Exam(s) XR CHEST 2V PA LATERAL EXAM: XR CHEST 2V PA LATERAL CLINICAL HISTORY: fever. TECHNIQUE: 2D digital imaging was performed. COMPARISON: CR CHEST 2 VIEWS PA,LAT from 10/23/2015 FINDINGS: 2 views: Heart size is normal. The mediastinum is not widened. Lungs are clear. No infiltrates nor pleural effusions. IMPRESSION: No acute pulmonary findings. DATA REPOSITORY: RADIATION DOSE DELIVERED:
[2023-02-08 19:14] LABS: COVID-19 PCR Negative (Negative); Influenza A PCR Negative (Negative); Influenza B PCR Negative (Negative); RSV PCR Negative (Negative)
[2023-02-08 19:15] LABS: Source NASOPHARYNGEAL
[2023-02-08] MEDS: Normal Saline 1,000 ML 2000 ML IV (19:19)
[2023-02-08] MEDS: POTASSIUM CHLORIDE 10 MEQ/100 ML BAG 100 MEQ IVPB (19:20)
[2023-02-08] MEDS: Potassium Chloride Liquid 20 MEQ PKT PO (19:20)
--- NOTE | 2023-02-08 19:39 | DI.VRAD_ITS ---
PROCEDURE INFORMATION: Exam: XR Left Tibia and Fibula Exam date and time: 02/08/2023 6:46 PM Age: 72 years old Clinical indication: Edema; Location not specified TECHNIQUE: Imaging protocol: Radiologic exam of the left tibia and fibula. Views: 2 views. COMPARISON: No relevant prior studies available. FINDINGS: Bones/joints: Osseous alignment is normal. No acute fracture. Mild degenerative changes of the left knee. Soft tissues: Significant medial soft tissue swelling of the ankle. More mild diffuse soft tissue swelling of the lower leg and ankle. Vasculature: Diffuse arterial calcification is noted in the infrapopliteal arteries. IMPRESSION: Soft tissue swelling and chronic findings as noted. No acute fracture. Dictated and Authenticated by: Dell Mcdonough MD. Ordering:EMILIE Funes MD
[2023-02-08] MEDS: Gabapentin 300 MG CAP 600 MG PO (19:41)
--- NOTE | 2023-02-08 19:41 | DI.VRAD_ITS ---
PROCEDURE INFORMATION: Exam: XR Chest Exam date and time: 02/08/2023 6:56 PM Age: 72 years old Clinical indication: Fever TECHNIQUE: Imaging protocol: Radiologic exam of the chest. Views: 2 views. COMPARISON: CT ABDOMEN PELVIS WO/W 01/17/2020 9:24 AM FINDINGS: Lungs: Unremarkable. No consolidation. Pleural spaces: Unremarkable. No pleural effusion. No pneumothorax. Heart/Mediastinum: Unremarkable. No cardiomegaly. Bones/joints: Old, healed right clavicle fracture noted. Degenerative changes noted in the spine and shoulders. No acute fracture. IMPRESSION: No acute disease Dictated and Authenticated by: Dell Mcdonough MD. Ordering:EMILIE Funes MD
[2023-02-08] MEDS: MORPHine 10 MG/ML VIAL 2 MG IVP ×2 (20:10→20:35)
--- NOTE | 2023-02-08 21:15 | HPE_ITS ---
Date of service: 02/08/23 Time of Service: 21:15 Assessment and Plan Assessment and plan (1) Cellulitis: Start date: 02/08/23 Status: Acute Assessment and plan: This is 72-year-old gentleman who had 48-hour history of swollen, tender and red left leg with nausea and vomiting the day of admission being found at home asleep while his demented wandered with EMS coming to the home for his . Patient did not know he had fever. He was in the ED and does have 3 separate lab but appears clinically stable. He will continue IV hydration with IV antibiotic therapy including Zosyn and vancomycin. Cultures have been done and will be followed up on. Patient diabetes will be controlled rather than using his insulin pump with glucometer measurement and sliding scale short acting insulin therapy. (2) Acidosis, lactic: Start date: 02/08/23 Status: Acute Assessment and plan: This is result of patient's infection and fever with systemic inflammatory response. Continue IV hydration and treat acute cellulitis aggressively. Diabetes controlled. Follow-up lactate in the morning. (3) Hypokalemia: Start date: 02/08/23 Status: Acute Assessment and plan: Replete and follow-up lab in the morning. (4) Hypomagnesemia: Start date: 02/08/23 Status: Acute Assessment and plan: Replete and follow-up lab in the morning. (5) Type 1 diabetes mellitus on insulin therapy: Status: Chronic Assessment and plan: Secondary to splenectomy with patient on insulin pump and not having problems with hypoglycemia by history. While in the hospital and unstable, the patient is appropriately discontinued and will have glucometer measurements with short acting insulin coverage before meals and at bedtime. (6) Benign hypertension: Assessment and plan: Stop hydrochlorothiazide continue other medical therapy adjusting as needed while hospitalized. (7) Hypothyroidism (acquired): Status: Chronic Assessment and plan: TSH elevated but patient's supplement will not be adjusted while hospitalized. Free T4 was normal. This should be addressed as an outpatient. (8) Atrial fibrillation, persistent: Status: Chronic Assessment and plan: Controlled rate on Tikosyn with patient on Eliquis. Continue outpatient medical therapy and monitor cardiac status with cardiac monitoring. Patient is a full code. He does not have any evidence of acute cardiac ischemia with a history of CAD. 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 He also is status post penectomy at the time he had his partial pancreatectomy. History of Present Illness History of Present Illness Chief Complaint: Fever with confusion and left leg swelling with redness Narrative: This is a 72-year-old male patient who was at home with his who has dementia and who wandered out of the house while he was asleep after having episodes of nausea and vomiting the morning of admission. He did not know that he had any fever but did have his left leg red and swollen with increasing tenderness over the last 48 hours. EMS was called because of his wandering out of the home and they found him confused with fever. He is brought to the ED for evaluation and had markedly positive labs with marked increase in WBC, fever of 103 and markedly elevated lactic acid along with procalcitonin. He was not tachycardic or hypotensive but states that he gets severely bradycardic at night when he sleeps and has chronic atrial fibrillation controlled on Tikosyn. He also takes Eliquis. He was not hypotensive. He was at risk for septic shock but appeared overall stable. At the time I saw the patient he had received fluids and was not confused giving accurate history. He was in no distress. He does have a history of surgically induced diabetes mellitus on insulin pump but denies any hypoglycemic episodes. 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 He says that the pancreatectomy was partial but the rest of the pancreas had shrunk. He offers no other acute complaints denies any diarrhea and had no chest pain or shortness of breath. He has no history of CHF though he has had CAD. He is a full code. 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 In the ED the patient was found to have no evidence of fasciitis in his left lower extremity by imaging with a markedly elevated WBC and abnormal labs as discussed above. He was initiated on IV antibiotic therapy with Rocephin and vancomycin with Rocephin to be switched to Zosyn. He also had hypokalemia and hypomagnesemia which has been a problem in the past on hydrochlorothiazide. These will be repleted IV. The patient's demented is staying with her sister. Review of Systems Narrative: 13 point review of systems otherwise unrevealing or stable. 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) Atrial fibrillation, persistent (Chronic) Hypothyroidism (acquired) (Chronic) Hypomagnesemia (Acute) Type 1 diabetes mellitus on insulin therapy (Chronic) Cellulitis (Acute) Acidosis, lactic (Acute) Fever (Acute) Hypokalemia (Acute) Nausea & vomiting (Acute) Leukocytosis (Acute) Insulin dependent type 2 diabetes mellitus, controlled (Acute) Right clavicle fracture (Acute 04/03/19) DJD (degenerative joint disease) of knee (Acute 03/15/13) Medical History Benign hypertension CORONARY ARTERY DISEASE Diabetes mellitus Hyperlipidemia Paroxysmal atrial fibrillation Surgical History EXCISION (09/10/08) ununited fracture fragment tip of olecranon as well as bursa left elbow Fasciectomy, Palmar (09/10/08) NODULAR ON THE LEFT History of pancreatectomy Post-splenectomy Repair, Rotator Cuff (09/12/12) RIGHT Stent placement 2000, 2011 Social History Smoking/Tobacco Use Status: Never Smoking risk assessment performed?: Yes Alcohol Intake: former Drug use: Never Housing: house Current gender identity: female Do you feel safe at home: Yes Do you feel safe in your relationship?: Yes Meds Allergies and Home Medications Allergies Allergy/AdvReac Type Severity Reaction Status Date / Time nifedipine [From Procardia] AdvReac Severe Muscle Verified 02/08/23 19:34 Spasm prochlorperazine maleate AdvReac Severe Muscle Verified 02/08/23 19:34 [From Compazine] Spasm atorvastatin calcium AdvReac Muscle Verified 02/08/23 19:34 [From Lipitor] Cramping Home Medications Medication Instructions Recorded Confirmed Type aspirin 81 mg tablet,delayed 81 mg PO DAILY AM 09/05/12 02/08/23 History release insulin lispro 100 unit/mL 100 unit SQ PER PROTOCOL 09/05/12 02/08/23 History subcutaneous cartridge (Humalog U-100 Insulin) rosuvastatin 20 mg tablet (Crestor) 20 mg PO DAILY AM 09/05/12 05/22/18 History nitroglycerin 0.4 mg sublingual 0.4 mg sublingual PRN 07/17/13 02/08/23 History tablet levothyroxine 50 mcg capsule 50 mcg PO DAILY 11/09/15 02/08/23 History (Tirosint) amlodipine 10 mg tablet 10 mg PO DAILY 09/08/16 02/08/23 History losartan 100 mg tablet 100 mg PO DAILY 09/08/16 02/08/23 History cholecalciferol (vitamin D3) 50 2,000 unit PO DAILY 02/10/17 02/08/23 History mcg (2,000 unit) tablet (Vitamin D3) clobetasol 0.05 % topical cream 15 gm topical DIRECTED 02/10/17 05/22/18 History furosemide 80 mg tablet 80 mg PO DAILY 02/10/17 02/08/23 History rivaroxaban 20 mg tablet (Xarelto) 20 mg PO DAILY 02/10/17 02/08/23 History dofetilide 250 mcg capsule 250 mcg PO Q12H 05/19/18 05/22/18 History (Tikosyn) hydrochlorothiazide 12.5 mg capsule 12.5 mg PO DAILY 04/17/19 02/08/23 History gabapentin 600 mg tablet 600 mg PO 3XD 02/08/23 02/08/23 History Exam Narrative Exam Narrative: General: Patient appears appropriate for age, alert and oriented x3 in no acute distress despite fever. HEENT: Normocephalic, eyes with pupils equal and react to light symmetrically, extraocular movement tact and sclera anicteric. Oropharynx with moist mucosa and fair dentition. Neck: Supple without JVD. Back: Stooped posture without CVA tenderness. Lungs: Decreased aeration over the right with no focalizing rales or rhonchi. Fair aeration overall with bronchovesicular breath sounds diffusely. No expiratory wheeze. Heart: Irregular irregular with normal rate. Systolic murmur over the sternal border. Abdomen: Obese contour, soft and nontender to palpation with no palpable hepatosplenomegaly. Genitalia/rectal: Exam deferred. Extremities: Osteoarthritic changes of the joints, fair range of motion. Left leg with erythema and swelling as well as tenderness with increased warmth to touch over the calf area down onto the foot dorsally. Loss of hair over both legs with slightly shiny atrophic skin. Fair cap refill. No clubbing or cyanosis. Skin: Darkly tanned with actinic changes diffusely, otherwise normal color, hot to touch overall on the trunk and more so over left leg and dry. Neuro: Cranial nerves II to XII gross intact, no focal motor deficits or tremor. Psych: Normal affect and mood. No abnormal thought processes. Remote and r ecent memory intact. Results Imaging Imaging Studies: Exam: XR Chest Exam date and time: 02/08/2023 6:56 PM Age: 72 years old Clinical indication: Fever TECHNIQUE: Imaging protocol: Radiologic exam of the chest. Views: 2 views. COMPARISON: CT ABDOMEN PELVIS WO/W 01/17/2020 9:24 AM FINDINGS: Lungs: Unremarkable. No consolidation. Pleural spaces: Unremarkable. No pleural effusion. No pneumothorax. Heart/Mediastinum: Unremarkable. No cardiomegaly. Bones/joints: Old, healed right clavicle fracture noted. Degenerative changes noted in the spine and shoulders. No acute fracture. IMPRESSION: No acute disease Exam: XR Left Tibia and Fibula Exam date and time: 02/08/2023 6:46 PM Age: 72 years old Clinical indication: Edema; Location not specified TECHNIQUE: Imaging protocol: Radiologic exam of the left tibia and fibula. Views: 2 views. COMPARISON: No relevant prior studies available. FINDINGS: Bones/joints: Osseous alignment is normal. No acute fracture. Mild degenerative changes of the left knee. Soft tissues: Significant medial soft tissue swelling of the ankle. More mild diffuse soft tissue swelling of the lower leg and ankle. Vasculature: Diffuse arterial calcification is noted in the infrapopliteal arteries. IMPRESSION: Soft tissue swelling and chronic findings as noted.? No acute fracture. Labs 02/08/23 17:42 02/08/23 17:42 Labs: Laboratory Results - last 24 hr 02/08/23 02/08/23 02/08/23 17:42 17:42 17:42 WBC 28.40 H* RBC 4.08 L Hgb 13.7 Hct 38.9 L MCV 95 MCH 33.6 H MCHC 35.2 RDW 14.0 Plt Count 213 MPV 11.0 Immature Gran % See Differential Neutrophils % 85.0 Band Neutrophils % 8 Lymphocytes % 1.0 Monocytes % 4.0 Eosinophils % 0.0 Basophils % 1.0 Metamyelocytes % 1 Nucleated RBC % 0.0 Absolute Neutrophils 26.41 H Absolute Lymphocytes 0.28 L Absolute Monocytes 1.14 H Absolute Eosinophils 0.00 Absolute Basophils 0.28 H RBC Morphology Normal PT INR APTT VBG pH VBG pCO2 VBG pO2 VBG HCO3 VBG Total CO2 VBG O2 Saturation VBG Base Excess VBG Lactate 4.8 H* Sodium 143 Potassium 2.7 L* Chloride 101 Carbon Dioxide 31.7 Anion Gap 10.3 BUN 28 H Creatinine 1.6 H Est GFR (CKD-EPI 2020) 45.50 Glucose 118 H Calcium 9.5 Magnesium 1.5 L Total Bilirubin 1.5 H AST 30 ALT 30 Alkaline Phosphatase 86 Total Protein 8.2 Albumin 3.4 Procalcitonin 5.5 TSH 7.32 H Free T4 1.24 COVID-19 Source SARS-CoV-2 (PCR) Influenza Type A (PCR) Influenza Type B (PCR) RSV (PCR) 02/08/23 02/08/23 02/08/23 17:42 17:42 18:22 WBC RBC Hgb Hct MCV MCH MCHC RDW Plt Count MPV Immature Gran % Neutrophils % Band Neutrophils % Lymphocytes % Monocytes % Eosinophils % Basophils % Metamyelocytes % Nucleated RBC % Absolute Neutrophils Absolute Lymphocytes Absolute Monocytes Absolute Eosinophils Absolute Basophils RBC Morphology PT 13.8 H INR 1.4 H APTT 27.9 VBG pH 7.49 H VBG pCO2 41 VBG pO2 38 VBG HCO3 31 H VBG Total CO2 28 VBG O2 Saturation 74 VBG Base Excess 8 H VBG Lactate Sodium Potassium Chloride Carbon Dioxide Anion Gap BUN Creatinine Est GFR (CKD-EPI 2020) Glucose Calcium Magnesium Total Bilirubin AST ALT Alkaline Phosphatase Total Protein Albumin Procalcitonin TSH Free T4 COVID-19 Source Cancelled SARS-CoV-2 (PCR) Cancelled Influenza Type A (PCR) Cancelled Influenza Type B (PCR) Cancelled RSV (PCR) Cancelled 02/08/23 18:34 WBC RBC Hgb Hct MCV MCH MCHC RDW Plt Count MPV Immature Gran % Neutrophils % Band Neutrophils % Lymphocytes % Monocytes % Eosinophils % Basophils % Metamyelocytes % Nucleated RBC % Absolute Neutrophils Absolute Lymphocytes Absolute Monocytes Absolute Eosinophils Absolute Basophils RBC Morphology PT INR APTT VBG pH VBG pCO2 VBG pO2 VBG HCO3 VBG Total CO2 VBG O2 Saturation VBG Base Excess VBG Lactate Sodium Potassium Chloride Carbon Dioxide Anion Gap BUN Creatinine Est GFR (CKD-EPI 2020) Glucose Calcium Magnesium Total Bilirubin AST ALT Alkaline Phosphatase Total Protein Albumin Procalcitonin TSH Free T4 COVID-19 Source NASOPHARYNGEAL SARS-CoV-2 (PCR) Negative Influenza Type A (PCR) Negative Influenza Type B (PCR) Negative RSV (PCR) Negative Last Vital Signs Temp 38.3 C H 02/08/23 17:17 Pulse 87 02/08/23 20:46 Resp 20 02/08/23 20:50 BP 122/79 02/08/23 20:46 Pulse Ox 95 02/08/23 20:50 Time Spent Time spent with Patient: >75 minutes Time was spent: preparing to see the patient(eg.review tests), obtaining and/or reviewing separately otained hiistory, ordering medications,tests, procedures, referring, communicating with other health healthcare architect, indepentently interpreting results and care coordination
[2023-02-08] MEDS: MORPHine 2 MG/ML SYR IVP (22:02)
[2023-02-08] MEDS: Acetaminophen 325 MG TAB PO (22:02)
[2023-02-08] MEDS: Normal Saline Flush 10 ML SYR IVP (22:04)
[2023-02-08] MEDS: MAGNESIUM SULFATE 2 GM/50 ML BAG IVPB (22:56)
[2023-02-08] MEDS: Normal Saline 1,000 ML 150 ML IV (23:13)
[2023-02-08] MEDS: PIPERACILLIN/TAZO 4.5 GM in Normal Saline 100 ML IVPB (23:14)
[2023-02-08] MEDS: Dofetilide 250 MCG CAP PO (23:36)
--- NOTE | 2023-02-08 23:46 | NUR.NOTE ---
Pharmacy Medication Note: at approximately 2150 on 02/08/23 Medication removal attempted at [facility]. Pt had a stat order for morphine concentration 10mg/ml ordered 2mg IV. I also noticed pt had a 2mg IV push PRN order. Upon pulling the stat order i realized the concentration was 10mg/ml Vial. this is a concentration I do not frequently work with. When i noticed that, i decided to only count the vials and NOT pull a vial. the count i counted was 11 vials of 10mg/ml morphine. 2mg/ml Morphine: Order is 2mg morphine IV push concentration 2mg/ml. Upon pulling this in the [facility], The drawer opened revealing both compartment #1 and Compartment #2 Compartment number #1 had a package of 5 containing the wrapper still entirely intact. Compartment Number #2 had 4 vials of morphine with a partially attached wrapper. I counted the vials 2 times, both times to get a count of 9. At that time I removed one 2mg/ml vial of morphine sulfate and notified the charge nurse of the medication discrepancy. End note. Please contact me anytime regarding questions about this note. Nursing Note:
[2023-02-09] VITALS (151 sets, daily range): BP systolic 95–160; BP diastolic 45–112; PULSE 50–122; RESP 11–35; TEMP 36.4–40.1; O2SAT 82–98
--- NOTE | 2023-02-09 | DI.CT_ITS ---
Exam(s) CT LOWER EXTREMITY LT W EXAM: CT LOWER EXTREMITY LT W CLINICAL HISTORY: cellulitis, sepsis, worsening erythema LLE. TECHNIQUE: Imaging Protocol: Axial computed tomography images with coronal and sagittal reformatted images were created and reviewed. CONTRAST MATERIAL: Intravenous: Omnipaque 350 Contrast volume:structured data in ml Contrast route:I V - Oral: yes / no COMPARISON: No exams were available for comparison FINDINGS: Penile implant device noted. Soft tissues: There is diffuse subcutaneous soft tissue edema in the lower leg which is most prominen t in the pretibial region but is also circumferential. There is no radiopaque foreign body. No gas in the soft tissues and no discrete fluid collection to suggest the presence of a focal abscess soft tissue issue edema extends into the ipsilateral foot. There is prominent vascular calcification note d in the left lower extremity. There are few enlarged lymph nodes in the left groin. No obvious knee joint effusion. Osseous: No fractures. No osseous lesions. No evidence of osteomyelitis IMPRESSION: There is diffuse edema of the soft tissues of the left lower leg without evidence of a discrete absce ss and no evidence of osteomyelitis. Findings are consistent with diffuse cellulitis. There are pro minent lymph nodes in the ipsilateral left inguinal region. RADIATION DOSE DELIVERED: 925.53mGy.cm Total DLP DATA REPOSITORY: All CT scans at this facility are submitted to the National Radiology Data Registry (NRDR) Dose Index Registry (DIR) with the [employer] (A[employer]). RADIATION OPTIMIZATION: All CT scans at this facility use at least one of these dose optimization te chniques: automated exposure control; mA and/or kV adjustment per patient size (includes targeted exa ms where dose is matched to clinical indication); or iterative reconstruction.
--- NOTE | 2023-02-09 | DI.US_ITS ---
APPROVED REPORT EXAM: Comprehensive 2D, Doppler, and color-flow Echocardiogram Patient Location: In-Patient Room/Bed: XAM503 [employer] Digger: Nubia Tsai RDCS (AE) Indications: Acute CHF, A Fib Other Information Study Quality: Adequate. Technically limited study due to body habitus, inability to position patient exam done supine bedside icu. Conclusion Normal left ventricular wall thickness and chamber size. Ejection fraction is 55%. Wall motion is n ormal Mildly dilated right ventricle with preserved systolic function Normal left atrial size. The right atrium is mildly enlarged Aortic valve is sclerotic and trileaflet with mild regurgitation Normal mitral valve with trace to mild regurgitation Right ventricular systolic pressure could not be estimated Wall motion Left Ventricle The left ventricle is normal size. The left ventricular systolic function is normal. The left ventric ular ejection fraction is within the normal range. There is normal left ventricular wall thickness. T here is normal LV segmental wall motion. There is no ventricular septal defect visualized. LVEF is 55 %. Right Ventricle Right ventricle is mildly dilated. Right ventricular systolic function is grossly normal. Atria The left atrium size is normal. Right atrium is mildly dilated. Aortic Valve The Aortic valve is sclerotic. Aortic valve is trileaflet. There is no aortic valvular stenosis. Mild aortic regurgitation. Mitral Valve The mitral valve is normal in structure. No evidence of mitral valve stenosis. Trace to mild mitral r egurgitation. Tricuspid Valve The tricuspid valve is normal in structure. There is no tricuspid valve stenosis. Trace tricuspid reg urgitation. Unable to assess PA pressure. Pulmonic Valve The pulmonary valve is normal in structure. There is no pulmonic valvular stenosis. Trace pulmonic re gurgitation. Great Vessels The aortic root is normal in size. The ascending aorta is normal in size. Aortic arch is not well vis ualized. The IVC collapses <50% with inspiration. Pericardium There is no pericardial effusion. 2D Dimensions IVSD d PLAX 0.91 cm M: 0.6-1.2 LVPW d PLAX 0.92 cm M: 0.6 - 1.2 LVID d PLAX 4.58 cm M: 4.2 - 5.8 LVDs 3.25 cm M: 2.5 - 4.0 Ao Root d 3.47 cm M: 3.1 - 3.7 RA Area A4C 14.55 cm2 Ao Asc Diam d 3.47 cm M: 2.6 - 3.4 LV EF Teichholz 54.9 % FS 28.35 % M-Mode TAPSE 1.52 cm (M/F) >1.7 LV Diastology MV E' medial 0.075 (>0.07 m/s) MV E' lateral 0.118 (>0.1 m/s) Aortic Valve LVOT Vmax 1.28 m/s AoV Area Vmax 2.03 cm2 LVOT Peak Grad 6.6 mmHg AR Vmax 2.34 m/s LVOT Mean Grad 3.4 mmHg AR DT 1705 msec LVOT Diam s 1.95 cm AR PHT 494 msec AoV Vmax 1.50 m/s AV Regurg Peak Gr. 21.85 mmHg Velocity Ratio 0.85 AoV Peak Grad 21.9 mmHg LVOT SV 73.37 mL AoV Mean Grad 6.4 mmHg AoV Area VTI 2.10 cm2 Mitral Valve MV Vmax TIPS 1.09 m/s MV Mean Grad 1.6 (<2mmHg) MV VTI 0.349 m Pulmonary Valve PV Mean Grad 2.7 mmHg RVOT Peak Gr. 3.11 mmHg RVOT Mean Gr. 1.75 mmHg RVOT VTI 0.145 m RVOT Vmax 0.88 m/s
--- NOTE | 2023-02-09 | DI.US_ITS ---
Exam(s) US EXTREMITY VENOUS BI EXAM: US EXTREMITY VENOUS BI CLINICAL HISTORY: concern for a PE, ?DVT, LLE pain and BLE edema. TECHNIQUE: Bilateral lower extremity venous ultrasound performed using grayscale, color-flow, and sp ectral Doppler analysis. COMPARISON: No exams were available for comparison FINDINGS: The bilateral common femoral, femoral and popliteal veins demonstrate normal compressibility, augment ation, and color Doppler. The posterior tibial veins are patent. lower extremity subcutaneous edema is noted bilaterally. No drainable collection. Reactive bilateral groin lymph nodes are noted. IMPRESSION: Right: Negative for DVT Left: Negative for DVT DATA REPOSITORY:
--- NOTE | 2023-02-09 | DI.RAD_ITS ---
Exam(s) XR PORTABLE CHEST AP EXAM: XR PORTABLE CHEST AP CLINICAL HISTORY: Acute hypoxic respiratory failure. TECHNIQUE: 2D digital imaging was performed. COMPARISON: CR CHEST 2 VIEWS PA,LAT from 10/23/[address] ABDOMEN PELVIS WO/W from 01/17/2020 CR,XR XR CHEST 2V PA LATERAL from 02/08/2023 FINDINGS: Single AP portable view. Heart size is upper normal. The mediastinum is not widened. There is symmetrical increased interstitial markings throughout both lung jauregui now evident. No obv ious pleural effusions. No pneumothorax. Healed fracture of the right clavicle again noted as well as prior rotator cuff surgery right shoulder. IMPRESSION: There are now symmetrical increased interstitial markings throughout both lung jauregui. No obvious pl eural effusions. Recommend nonportable PA and lateral views when clinically possible. DATA REPOSITORY: RADIATION DOSE DELIVERED:
[2023-02-09] MEDS: MORPHine 2 MG/ML SYR IVP ×3 (00:51→13:47)
[2023-02-09] MEDS: Normal Saline Flush 10 ML SYR IVP ×3 (00:52→11:02)
[2023-02-09] MEDS: Levothyroxine 50 MCG TAB PO (05:54)
[2023-02-09] MEDS: Aspirin E.C. 81 MG TABEC PO (05:54)
[2023-02-09] MEDS: PIPERACILLIN/TAZO 4.5 GM in Normal Saline 100 ML IVPB (05:54)
[2023-02-09] MEDS: Normal Saline 1,000 ML 150 ML IV (05:55)
[2023-02-09] MEDS: Albuterol 2.5 MG/3 ML INH SOLN VIAL UPD (07:49)
[2023-02-09 07:54] LABS: HCT 38.7 % (40.0-50.0); HGB 13.2 g/dL (13.5-17.5); Lactate 4.2 mmol/L (0.6-1.4); MCH 33.4 pg (27.0-33.0); MCHC 34.1 % (32.0-36.0); MCV 98 fL (80-95); MPV 11.5 fL (8.0-11.0); Platelet Count 188 10^3/uL (130-400); RBC 3.95 10^6/uL (4.36-5.78); RDW-SD 54.4 fL
[2023-02-09 07:55] LABS: WBC 43.17 10^3/uL (4.4-10.8)
[2023-02-09] MEDS: Furosemide 100 MG/10 ML VIAL 80 MG IVP (08:00)
[2023-02-09 08:03] LABS: INR 1.4 (0.9-1.1); Prothrombin Time 14.5 sec (9.3-11.0)
[2023-02-09 08:10] LABS: ALT 28 U/L (16-63); AST 37 U/L (15-37); Albumin 2.8 g/dL (3.4-5.0); Alkaline Phosphatase 71 U/L (46-116); Anion Gap 13.1 mmol/L (3-11); BUN 34 mg/dL (7-18); Bilirubin, Total 1.5 mg/dL (0.2-1.0); CO2 22.9 mmol/L (21.0-32.0); CREATININE 1.7 mg/dL (0.70-1.30); Calcium 8.1 mg/dL (8.5-10.1); Chloride 99 mmol/L (98-107); Glucose 354 mg/dL (74-106); Magnesium 1.9 mg/dL (1.8-2.4); Sodium 135 mmol/L (136-145); Total Protein 7.4 g/dL (6.4-8.2)
[2023-02-09 08:16] LABS: NT-proBNP 4203 pg/mL (<300); Troponin I < 50 ng/L (<or=60)
--- NOTE | 2023-02-09 08:19 | W.PULMCC ---
General Date of Service Date of service: 02/09/23 Time of Service: 08:19 Reason for Admission to ICU: Hypoxic respiratory failure Assessment and Plan Assessment and plan (1) RUSSELL on CPAP: Status: Chronic (2) Volume overload: Status: Acute (3) Right ventricular dilation: Status: Acute (4) Insulin dependent type 2 diabetes mellitus, controlled: Status: Acute (5) Cellulitis of left lower extremity: Status: Acute (6) Sepsis: Status: Acute (7) Acute respiratory failure with hypoxia: Status: Acute (8) Atrial fibrillation, persistent: Status: Chronic (9) Leukocytosis: Status: Acute (10) Acidosis, lactic: Status: Acute (11) KEVIN (acute kidney injury): Status: Acute Assessment and plan: This is a 72 yo transferred to the ICU for iatrogenic volume overload in the setting of likely RV insufficiency. He has responded very well to positive pressure and Lasix. I would recommend continued diuresis. He has evidence of congestion based on his exam, lactate level, bnp, elevated bili and KEVIN. His cellulitis is fairly significant and he does have sepsis. He is on appropriate broad spectrum antibiotic therapy. Recommendations Pulmonary: Hypoxic respiratory failure - CPAP tonight and as needed - supplemental O2 as needed - IS and VibraPEP RUSSELL - home CPAP at night and naps Cardiac: A. fib - home regimen RV dilation - likely pulmonary hypertension - maintain euvolemia Volume overload - agree with lasix for diuresis - I/O's - negative fluid balance Renal: KEVIN - congestion versus sepsis - monitor Lactic Acidosis - continue to trend to <3 I&O: Intake & Output 02/06/23 02/07/23 02/08/23 02/09/23 23:59 23:59 23:59 23:59 Intake Total 1766.667 / 5466.416 9438.333 / 2633.333 Output Total 550 / 550 Balance 1766.667 / 6599.740 5295.333 / 2083.333 Weight 74.2 kg Daily Fluid Goal:: -500 to 1L GI Nutrition: OK for diet Date of Last Bowel Movement: 02/08/23 Infectious Disease: Cellulitis with Sepsis - agree with vanc and Zosyn for now - blood cultures pending Hematologic: Leukocytosis - due to sepsis Neurologic: No acute concerns Endocrine: Diabetes - pump stopped - on Lantus Lines: PIV Mathis Prophylaxis: Xarelto Code Status: Resuscitation Status Full Code Subjective Critical and life-threatening events over the past 24 hours: This is a 72 yo admitted overnight for a cellulitis. He has an insulin pump which has been turned off and is receiving basal supplementation. He has a history of 3 stents to RCA and received fluids overnight for his cellulitis. This morning he developed respiratory distress requiring 10LPM O2 acutely. He was started on CPAP and transferred to the ICU. His lactate was elevated and he was found to be in volume overload. Julián Vega has ordered lasix to treat this. On my return this afternoon to see him, he was feeling much better, making alot of urine (now has Mathis) and was on his home CPAP with FiO2 of 21. Exam Narrative Exam Narrative: Gen: NAD, normal respiratory effort, well-nourished HENT: PERRL, moist oral mucosa Chest: NModerate respiratory distress, bilateral posterior crackles Heart: regular rate and rhythym, no murmurs, rubs or gallops Abdomen: Non-distended, soft, non tender Extremities: No clubbing, 3+ edema to knee, left leg with erythema and tenderness Neuro: AAOx3 , non focal Psych: cooperative, appropriate mental affect Most Recent VS/Results Last Vital Signs Temp 36.4 C L 02/09/23 03:25 Pulse 77 02/09/23 08:10 Resp 21 02/09/23 08:10 BP 134/64 02/09/23 03:25 Pulse Ox 97 02/09/23 08:10 Laboratory Results - last 24 hr 02/08/23 02/08/23 02/08/23 17:42 17:42 17:42 WBC 28.40 H* RBC 4.08 L Hgb 13.7 Hct 38.9 L MCV 95 MCH 33.6 H MCHC 35.2 RDW 14.0 Plt Count 213 MPV 11.0 Immature Gran % See Differential Neutrophils % 85.0 Band Neutrophils % 8 Lymphocytes % 1.0 Monocytes % 4.0 Eosinophils % 0.0 Basophils % 1.0 Metamyelocytes % 1 Nucleated RBC % 0.0 Absolute Neutrophils 26.41 H Absolute Lymphocytes 0.28 L Absolute Monocytes 1.14 H Absolute Eosinophils 0.00 Absolute Basophils 0.28 H RBC Morphology Normal PT INR APTT VBG pH VBG pCO2 VBG pO2 VBG HCO3 VBG Total CO2 VBG O2 Saturation VBG Base Excess VBG Lactate 4.8 H* Sodium 143 Potassium 2.7 L* Chloride 101 Carbon Dioxide 31.7 Anion Gap 10.3 BUN 28 H Creatinine 1.6 H Est GFR (CKD-EPI 2020) 45.50 Glucose 118 H Calcium 9.5 Magnesium 1.5 L Total Bilirubin 1.5 H AST 30 ALT 30 Alkaline Phosphatase 86 Total Protein 8.2 Albumin 3.4 Procalcitonin 5.5 TSH 7.32 H Free T4 1.24 Random Vancomycin COVID-19 Source SARS-CoV-2 (PCR) Influenza Type A (PCR) Influenza Type B (PCR) RSV (PCR) 02/08/23 02/08/23 02/08/23 17:42 17:42 18:22 WBC RBC Hgb Hct MCV MCH MCHC RDW Plt Count MPV Immature Gran % Neutrophils % Band Neutrophils % Lymphocytes % Monocytes % Eosinophils % Basophils % Metamyelocytes % Nucleated RBC % Absolute Neutrophils Absolute Lymphocytes Absolute Monocytes Absolute Eosinophils Absolute Basophils RBC Morphology PT 13.8 H INR 1.4 H APTT 27.9 VBG pH 7.49 H VBG pCO2 41 VBG pO2 38 VBG HCO3 31 H VBG Total CO2 28 VBG O2 Saturation 74 VBG Base Excess 8 H VBG Lactate Sodium Potassium Chloride Carbon Dioxide Anion Gap BUN Creatinine Est GFR (CKD-EPI 2020) Glucose Calcium Magnesium Total Bilirubin AST ALT Alkaline Phosphatase Total Protein Albumin Procalcitonin TSH Free T4 Random Vancomycin COVID-19 Source Cancelled SARS-CoV-2 (PCR) Cancelled Influenza Type A (PCR) Cancelled Influenza Type B (PCR) Cancelled RSV (PCR) Cancelled 02/08/23 02/09/23 02/09/23 18:34 07:43 07:43 WBC 43.17 H* RBC 3.95 L Hgb 13.2 L Hct 38.7 L MCV 98 H MCH 33.4 H MCHC 34.1 RDW 15.0 H Plt Count 188 MPV 11.5 H Immature Gran % Neutrophils % Band Neutrophils % Lymphocytes % Monocytes % Eosinophils % Basophils % Metamyelocytes % Nucleated RBC % Absolute Neutrophils Absolute Lymphocytes Absolute Monocytes Absolute Eosinophils Absolute Basophils RBC Morphology PT INR APTT VBG pH VBG pCO2 VBG pO2 VBG HCO3 VBG Total CO2 VBG O2 Saturation VBG Base Excess VBG Lactate Sodium 135 L Potassium 4.0 D Chloride 99 Carbon Dioxide 22.9 Anion Gap 13.1 H BUN 34 H Creatinine 1.7 H Est GFR (CKD-EPI 2020) 42.30 Glucose 354 H Calcium 8.1 L Magnesium 1.9 Total Bilirubin 1.5 H AST 37 ALT 28 Alkaline Phosphatase 71 Total Protein 7.4 Albumin 2.8 L Procalcitonin TSH Free T4 Random Vancomycin COVID-19 Source NASOPHARYNGEAL SARS-CoV-2 (PCR) Negative Influenza Type A (PCR) Negative Influenza Type B (PCR) Negative RSV (PCR) Negative 02/09/23 02/09/23 02/09/23 07:43 07:43 07:43 WBC RBC Hgb Hct MCV MCH MCHC RDW Plt Count MPV Immature Gran % Neutrophils % Band Neutrophils % Lymphocytes % Monocytes % Eosinophils % Basophils % Metamyelocytes % Nucleated RBC % Absolute Neutrophils Absolute Lymphocytes Absolute Monocytes Absolute Eosinophils Absolute Basophils RBC Morphology PT 14.5 H INR 1.4 H APTT VBG pH VBG pCO2 VBG pO2 VBG HCO3 VBG Total CO2 VBG O2 Saturation VBG Base Excess VBG Lactate 4.2 H* Sodium Potassium Chloride Carbon Dioxide Anion Gap BUN Creatinine Est GFR (CKD-EPI 2020) Glucose Calcium Magnesium Total Bilirubin AST ALT Alkaline Phosphatase Total Protein Albumin Procalcitonin TSH Free T4 Random Vancomycin 6.0 COVID-19 Source SARS-CoV-2 (PCR) Influenza Type A (PCR) Influenza Type B (PCR) RSV (PCR) Review of Systems All systems reviewed & are unremarkable except as noted in HPI and below Time spent with patient Time spent in Critical Care: 45 Time spent in Critical care included: Coordination of care, Chart review, Documenting critically ill care, Time at immediate bedside and Discussing critically ill care with other medical staff
[2023-02-09] MEDS: Insulin Glargine 300 UNITS/3 ML PEN 30 UNITS SC (09:39)
[2023-02-09] MEDS: Insulin Aspart 300 UNITS/3 ML PEN SC ×6 (09:42→22:22)
[2023-02-09] MEDS: Gabapentin 600 MG TAB PO ×4 (10:04→20:32)
[2023-02-09] MEDS: Dofetilide 250 MCG CAP PO ×2 (10:05→20:32)
[2023-02-09] MEDS: Cholecalciferol (Vitamin D3) 1,000 UNIT TAB 2000 UNITS PO (10:05)
[2023-02-09] MEDS: Losartan 50 MG TAB 100 MG PO (10:05)
[2023-02-09] MEDS: amLODIPine 10 MG TAB PO (10:05)
--- NOTE | 2023-02-09 10:27 | PGE_ITS ---
Date of Service Date of service: 02/09/23 Time of Service: 07:40 Assessment and Plan Assessment and plan (1) Sepsis: Status: Acute Assessment and plan: Due to cellulitis, present on admission. Blood cultures are pending. Lactates high - will trend. It's possible that lactic acidosis is not necessarily a sign of impending shock in this situation, but could reflect work of breathing. Continue empiric vancomycin/zosyn. (2) Acute respiratory failure with hypoxia: Status: Acute Assessment and plan: Clinically, likely related to fluid overload. Received furosemide 80 mg IV x 1 this am with good UOP. Will treat with furosemide 40 mg IV BID, monitor I/O's, Cr. Obtain CTA of the chest, echocardiogram. Since the patient's O2 requirement is already much improved, I do not think there is value to getting an ABG at this point. Provide CPAP at night and prn. Transfrerred to the ICU. (3) Cellulitis of left lower extremity: Status: Acute Assessment and plan: As above (4) Acidosis, lactic: Status: Acute Assessment and plan: As above Trend lactates (5) Acute CHF: Status: Acute Assessment and plan: As above Await echo Treat with furosemide 40 mg IV BID. (6) Type 1 diabetes mellitus on insulin therapy: Status: Chronic Assessment and plan: Pump discontinued. Substitute with basal bolus insulin. The patient is normally on 37 units of basal coverage and on 1 unit: 6-8 grams/CHO. I have written him for a little bit less basal since he was NPO for breakfast. (7) RUSSELL on CPAP: Status: Chronic Assessment and plan: Provide CPAP (8) DVT prophylaxis: Status: Acute Assessment and plan: On therapeutic xarelto (9) Discharge planning issues: Status: Acute Assessment and plan: Full code Transfer to the ICU. Total critical Care time [address] Sauer. Subjective Subjective Interval history since last seen: I was called to Mr Escobar's bedside emergently after his oxygen requirement had suddenly gone up to 10 L of o2 by NC. The patient, who normally uses CPAP, did not have it on last night. IVF had already been d/c'ed by nursing. The patient was noted to be wheezing by nursing. He had denied h/o smoking and does not usually use inhalers. He was mildly febrile. Denies dizziness, CP, nausea. Exam Narrative Exam Narrative: General: Pleasant obese male who is mildly dyspneic, on 10 L of O2 by NC, audibly wheezing HEENT: EOMI, MMM Heart: irregularly irregular rhythm, no m/r/g Lungs: expiratory wheezing B, rales on L Abdomen: soft, nontender, nondistended Extremities: 1+ pitting edema BLEs, symmetric, LLE with marked erythema, TTP Objective Last Vital Signs Temp 38.2 C H 02/09/23 07:05 Pulse 74 02/09/23 09:38 Resp 21 02/09/23 09:50 BP 117/56 L 02/09/23 09:03 Pulse Ox 91 L 02/09/23 09:50 Laboratory Results - last 24 hr 02/08/23 02/08/23 02/08/23 17:42 17:42 17:42 WBC 28.40 H* RBC 4.08 L Hgb 13.7 Hct 38.9 L MCV 95 MCH 33.6 H MCHC 35.2 RDW 14.0 Plt Count 213 MPV 11.0 Immature Gran % See Differential Neutrophils % 85.0 Band Neutrophils % 8 Lymphocytes % 1.0 Monocytes % 4.0 Eosinophils % 0.0 Basophils % 1.0 Metamyelocytes % 1 Nucleated RBC % 0.0 Absolute Neutrophils 26.41 H Absolute Lymphocytes 0.28 L Absolute Monocytes 1.14 H Absolute Eosinophils 0.00 Absolute Basophils 0.28 H RBC Morphology Normal PT INR APTT VBG pH VBG pCO2 VBG pO2 VBG HCO3 VBG Total CO2 VBG O2 Saturation VBG Base Excess VBG Lactate 4.8 H* Sodium 143 Potassium 2.7 L* Chloride 101 Carbon Dioxide 31.7 Anion Gap 10.3 BUN 28 H Creatinine 1.6 H Est GFR (CKD-EPI 2020) 45.50 Glucose 118 H Calcium 9.5 Magnesium 1.5 L Total Bilirubin 1.5 H AST 30 ALT 30 Alkaline Phosphatase 86 Troponin I NT-Pro-B Natriuret Pep Total Protein 8.2 Albumin 3.4 Procalcitonin 5.5 TSH 7.32 H Free T4 1.24 Random Vancomycin COVID-19 Source SARS-CoV-2 (PCR) Influenza Type A (PCR) Influenza Type B (PCR) RSV (PCR) 02/08/23 02/08/23 02/08/23 17:42 17:42 18:22 WBC RBC Hgb Hct MCV MCH MCHC RDW Plt Count MPV Immature Gran % Neutrophils % Band Neutrophils % Lymphocytes % Monocytes % Eosinophils % Basophils % Metamyelocytes % Nucleated RBC % Absolute Neutrophils Absolute Lymphocytes Absolute Monocytes Absolute Eosinophils Absolute Basophils RBC Morphology PT 13.8 H INR 1.4 H APTT 27.9 VBG pH 7.49 H VBG pCO2 41 VBG pO2 38 VBG HCO3 31 H VBG Total CO2 28 VBG O2 Saturation 74 VBG Base Excess 8 H VBG Lactate Sodium Potassium Chloride Carbon Dioxide Anion Gap BUN Creatinine Est GFR (CKD-EPI 2020) Glucose Calcium Magnesium Total Bilirubin AST ALT Alkaline Phosphatase Troponin I NT-Pro-B Natriuret Pep Total Protein Albumin Procalcitonin TSH Free T4 Random Vancomycin COVID-19 Source Cancelled SARS-CoV-2 (PCR) Cancelled Influenza Type A (PCR) Cancelled Influenza Type B (PCR) Cancelled RSV (PCR) Cancelled 02/08/23 02/09/23 02/09/23 18:34 07:43 07:43 WBC 43.17 H* RBC 3.95 L Hgb 13.2 L Hct 38.7 L MCV 98 H MCH 33.4 H MCHC 34.1 RDW 15.0 H Plt Count 188 MPV 11.5 H Immature Gran % Neutrophils % Band Neutrophils % Lymphocytes % Monocytes % Eosinophils % Basophils % Metamyelocytes % Nucleated RBC % Absolute Neutrophils Absolute Lymphocytes Absolute Monocytes Absolute Eosinophils Absolute Basophils RBC Morphology PT INR APTT VBG pH VBG pCO2 VBG pO2 VBG HCO3 VBG Total CO2 VBG O2 Saturation VBG Base Excess VBG Lactate Sodium 135 L Potassium 4.0 D Chloride 99 Carbon Dioxide 22.9 Anion Gap 13.1 H BUN 34 H Creatinine 1.7 H Est GFR (CKD-EPI 2020) 42.30 Glucose 354 H Calcium 8.1 L Magnesium 1.9 Total Bilirubin 1.5 H AST 37 ALT 28 Alkaline Phosphatase 71 Troponin I NT-Pro-B Natriuret Pep Total Protein 7.4 Albumin 2.8 L Procalcitonin TSH Free T4 Random Vancomycin COVID-19 Source NASOPHARYNGEAL SARS-CoV-2 (PCR) Negative Influenza Type A (PCR) Negative Influenza Type B (PCR) Negative RSV (PCR) Negative 02/09/23 02/09/23 02/09/23 07:43 07:43 07:43 WBC RBC Hgb Hct MCV MCH MCHC RDW Plt Count MPV Immature Gran % Neutrophils % Band Neutrophils % Lymphocytes % Monocytes % Eosinophils % Basophils % Metamyelocytes % Nucleated RBC % Absolute Neutrophils Absolute Lymphocytes Absolute Monocytes Absolute Eosinophils Absolute Basophils RBC Morphology PT 14.5 H INR 1.4 H APTT VBG pH VBG pCO2 VBG pO2 VBG HCO3 VBG Total CO2 VBG O2 Saturation VBG Base Excess VBG Lactate 4.2 H* Sodium Potassium Chloride Carbon Dioxide Anion Gap BUN Creatinine Est GFR (CKD-EPI 2020) Glucose Calcium Magnesium Total Bilirubin AST ALT Alkaline Phosphatase Troponin I NT-Pro-B Natriuret Pep Total Protein Albumin Procalcitonin TSH Free T4 Random Vancomycin 6.0 COVID-19 Source SARS-CoV-2 (PCR) Influenza Type A (PCR) Influenza Type B (PCR) RSV (PCR) 02/09/23 07:43 WBC RBC Hgb Hct MCV MCH MCHC RDW Plt Count MPV Immature Gran % Neutrophils % Band Neutrophils % Lymphocytes % Monocytes % Eosinophils % Basophils % Metamyelocytes % Nucleated RBC % Absolute Neutrophils Absolute Lymphocytes Absolute Monocytes Absolute Eosinophils Absolute Basophils RBC Morphology PT INR APTT VBG pH VBG pCO2 VBG pO2 VBG HCO3 VBG Total CO2 VBG O2 Saturation VBG Base Excess VBG Lactate Sodium Potassium Chloride Carbon Dioxide Anion Gap BUN Creatinine Est GFR (CKD-EPI 2020) Glucose Calcium Magnesium Total Bilirubin AST ALT Alkaline Phosphatase Troponin I < 50 NT-Pro-B Natriuret Pep 4203 H Total Protein Albumin Procalcitonin TSH Free T4 Random Vancomycin COVID-19 Source SARS-CoV-2 (PCR) Influenza Type A (PCR) Influenza Type B (PCR) RSV (PCR) Objective Narrative Objective Narrative: CXR: There are now symmetrical increased interstitial markings throughout both lung jauregui.? No obvious pleural effusions.? Recommend nonportable PA and lateral views when clinically possible. Time Spent with Patient Time Spent with Patient: >50 minutes Time was spent: preparing to see the patient(eg.review tests), obtaining and/or reviewing separately otained hiistory, ordering medications,tests, procedures, referring, communicating with other health intensive care specialist, indepentently interpreting results, counseling the patient and care coordination
[2023-02-09] MEDS: VANCOMYCIN/WATER (PEG) 1.25 GM/250 ML BAG IV (10:59)
[2023-02-09 11:10] LABS: Lactate 6.5 mmol/L (0.6-1.4)
[2023-02-09] MEDS: Acetaminophen 325 MG TAB PO ×2 (12:59→22:06)
[2023-02-09 14:24] LABS: BE (Venous) 1 mmol/L (-2-3); HCO3 (Venous) 25 mmol/L (23-28); O2 Sat (Venous) 92 %; TCO2 (Venous) 23 mmol/L (24-29); pCO2 (Venous) 35 mmHg (41-51); pH (Venous) 7.46 (7.31-7.41); pO2 (Venous) 57 mmHg
[2023-02-09 14:29] LABS: Bilirubin Negative (Negative); Blood Small (Negative); Clarity Clear (Clear); Glucose 500 mg/dL (Negative); Ketones Negative (Negative); Leukocyte Esterase Negative (Negative); Nitrite Negative (Negative); Specific Gravity 1.015 (1.005-1.025); Urobilinogen 0.2 mg/dL (Up to 0.2)
[2023-02-09 14:37] LABS: Bacteria Negative HPF (Negative); C & S Indicated? No; Casts 0-2 Hyaline LPF (Negative); Crystals Negative HPF (Negative); Epithelial Cells Rare HPF (Negative); Mucus Negative (Negative); WBC Negative HPF (0-5)
[2023-02-09 14:40] LABS: Anion Gap 11.9 mmol/L (3-11); BUN 37 mg/dL (7-18); CO2 25.1 mmol/L (21.0-32.0); Chloride 98 mmol/L (98-107); Estimated GFR 34.81 (mL/min/1.73m2); Glucose 424 mg/dL (74-106); Potassium 3.3 mmol/L (3.5-5.1); Sodium 135 mmol/L (136-145)
[2023-02-09 14:45] LABS: Lactate 5.1 mmol/L (0.6-1.4)
[2023-02-09] MEDS: PIPERACILLIN/TAZO 3.375 GM in Normal Saline 50 ML IV ×2 (14:58→21:55)
--- NOTE | 2023-02-09 15:55 | INITIAL_ITS ---
Date of service: 02/09/23 Time of Service: 15:55 Care Management Initial Assmt Initial Assessment REASON FOR HOSPITALIZATION:: Cellulitis, lactic acidosis, IDDM PREVIOUS FUNCTIONAL STATUS/SOCIAL/FAMILY SUPPORTS:: Resides in [place] with , identifies as [employer]oration[employer], appears to need assistance with most ADLs; further evaluations anticipated. CURRENT FUNCTIONAL STATUS:: Transferred to ICU acutely; hypoxic, Ted did not have home CPAP last night and is attributing his lowered oxygen level due to not having his home unit here through the night. ADVANCE DIRECTIVES:: Reports children as agents; determine if documents are available in chart. Has patient been provided with info about the portal/API?: Yes Did the patient sign up for the portal?: Yes CODE STATUS:: Full Code INSURANCE COVERAGE / FINANCIAL ISSUES:: [place] PRIMARY CARE PHYSICIAN:: Tanner Oconnor POTENTIAL DISCHARGE NEEDS:: Further evaluations, follow up appointments. PATIENT/FAMILY EDUCATION NEEDS:: Review discharge instructions, discuss Ask Me Three. ANTICIPATED BARRIERS TO DISCHARGE:: None identified at this time. TRANSPORTATION:: Via private vehicle with family. PLAN:: Ted was transferred to the ICU for increased monitoring; anticipate Diabetic Education consult, and further evaluations prior to discharge to inform discharge planning considerations. CM continues to follow. 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) Atrial fibrillation, persistent (Chronic) Hypothyroidism (acquired) (Chronic) Hypomagnesemia (Acute) Type 1 diabetes mellitus on insulin therapy (Chronic) Cellulitis (Acute) Acidosis, lactic (Acute) Fever (Acute) Hypokalemia (Acute) Nausea & vomiting (Acute) Leukocytosis (Acute) Insulin dependent type 2 diabetes mellitus, controlled (Acute) Right clavicle fracture (Acute 04/03/19) DJD (degenerative joint disease) of knee (Acute 03/15/13) Medical History (Updated 02/10/23 @ 10:15 by Josette Gallego MD) Benign hypertension CORONARY ARTERY DISEASE CVA (cerebral vascular accident) Diabetes mellitus Hyperlipidemia Paroxysmal atrial fibrillation Surgical History EXCISION (09/10/08) ununited fracture fragment tip of olecranon as well as bursa left elbow Fasciectomy, Palmar (09/10/08) NODULAR ON THE LEFT History of pancreatectomy Post-splenectomy Repair, Rotator Cuff (09/12/12) RIGHT Stent placement 2011 Social History Smoking/Tobacco Use Status: Never Smoking risk assessment performed?: Yes Alcohol Intake: former Drug use: Never Housing: house Current gender identity: female Do you feel safe at home: Yes Do you feel safe in your relationship?: Yes
[2023-02-09] MEDS: Insulin Glargine 300 UNITS/3 ML PEN 10 UNITS SC (16:00)
[2023-02-09] MEDS: Insulin REGULAR-Human 100 UNITS/ML UNIT 10 UNITS IV (16:01)
[2023-02-09] MEDS: Furosemide 40 MG/4 ML VIAL IVP (16:02)
[2023-02-09] MEDS: POTASSIUM CHLORIDE 20 MEQ/100 ML BAG 50 MEQ IVPB ×2 (16:03→19:12)
[2023-02-09] MEDS: Baclofen 10 MG TAB 5 MG PO (16:31)
[2023-02-09] MEDS: Ketorolac 15 MG/ML VIAL IVP ×2 (17:15→22:45)
[2023-02-09] MEDS: Rivaroxaban 10 MG TABLET 20 MG PO (17:15)
[2023-02-09] MEDS: Normal Saline - Diluent 50 ML VIAL IJ (18:46)
--- NOTE | 2023-02-09 19:40 | DI.VRAD_ITS ---
PROCEDURE INFORMATION: Exam: CT Left Lower Extremity With Contrast Exam date and time: 02/09/2023 6:39 PM Age: 72 years old Clinical indication: Cellulitis and other: Cellulitis, sepsis, worsening erythema lle L inguinal collection vs adenopathy; Knee; Left TECHNIQUE: Imaging protocol: CT of the left lower extremity with intravenous contrast was performed. Contrast material: OMNIPAQUE 350; Contrast volume: 100 ml; Contrast route: INTRAVENOUS (IV); COMPARISON: CT ABDOMEN PELVIS WO/W 01/17/2020 9:24 AM FINDINGS: Tubes, catheters and devices: Penile implant device is in place. Bones/joints: Normal. No acute fracture or dislocation. Soft tissues: Diffuse subcutaneous soft tissue edema noted throughout the left lower leg, most pronounced in the pretibial region. No loculated soft tissue fluid collection evident. No soft tissue gas. Vasculature: Diffuse arterial calcification is noted throughout the left lower extremity. Lymph nodes: Moderate left inguinal lymphadenopathy noted. IMPRESSION: Diffuse soft tissue edema of the left lower leg without evidence of abscess or osteomyelitis. Associated left inguinal lymphadenopathy compatible with cellulitis. Dictated and Authenticated by: Dell Mcdonough MD. Ordering:SULLY Finch MD
[2023-02-09] MEDS: Rosuvastatin 20 MG TAB PO (20:32)
[2023-02-09 22:59] LABS: Lactate 2.4 mmol/L (0.6-1.4)
[2023-02-10] VITALS (130 sets, daily range): BP systolic 75–150; BP diastolic 37–66; PULSE 43–96; RESP 4–30; TEMP 36.9–37.9; O2SAT 88–99
[2023-02-10] MEDS: methylPREDNISolone SUCC 40 MG VIAL IVP (03:27)
[2023-02-10] MEDS: Normal Saline 1,000 ML 1000 ML IV (03:27)
[2023-02-10] MEDS: Norepinephrine in D5W 8 MG/250 ML BAG 9.375 MG IV (04:34)
[2023-02-10 04:49] LABS: Lactate 1.8 mmol/L (0.6-1.4)
[2023-02-10 04:52] LABS: Abs Immature Grans 0.85 10^3/uL (0.0-0.06); HCT 33.2 % (40.0-50.0); HGB 11.3 g/dL (13.5-17.5); MCH 33.6 pg (27.0-33.0); MCV 99 fL (80-95); MPV 11.8 fL (8.0-11.0); Platelet Count 150 10^3/uL (130-400); RBC 3.36 10^6/uL (4.36-5.78); RDW 15.3 % (11.8-14.1); RDW-SD 55.2 fL
[2023-02-10 04:54] LABS: WBC 33.98 10^3/uL (4.4-10.8)
[2023-02-10 05:03] LABS: Absolute Lymphocyte Count 0.68 10^3/uL (1.2-3.4); Absolute Neutrophil Count 32.28 10^3/uL (1.2-6.7); Bands % 0
[2023-02-10 05:04] LABS: Absolute Monocyte Count 1.02 10^3/uL (0.1-0.8); BUN 48 mg/dL (7-18); CREATININE 2.1 mg/dL (0.70-1.30); Calcium 7.6 mg/dL (8.5-10.1); Chloride 103 mmol/L (98-107); Diff Comment Manual Differential; Estimated GFR 32.83 (mL/min/1.73m2); Glucose 237 mg/dL (74-106); Potassium 3.4 mmol/L (3.5-5.1); RBC Morphology Normal; Sodium 138 mmol/L (136-145)
[2023-02-10 05:06] LABS: C-Reactive Protein > 25.00 mg/dL (0.0-0.3)
[2023-02-10] MEDS: Aspirin E.C. 81 MG TABEC PO (06:26)
[2023-02-10] MEDS: PIPERACILLIN/TAZO 3.375 GM in Normal Saline 50 ML IV ×3 (06:26→22:25)
[2023-02-10] MEDS: Levothyroxine 50 MCG TAB PO (06:26)
[2023-02-10 07:37] LABS: Lactate 2.6 mmol/L (0.6-1.4)
--- NOTE | 2023-02-10 08:58 | PUCC_ITS ---
General Date of Service Date of service: 02/10/23 Time of Service: 07:30 Reason for Admission to ICU: Hypoxic respiratory failure Assessment and Plan Assessment and plan (1) Sepsis: Status: Acute (2) RUSSELL on CPAP: Status: Chronic (3) Cardiogenic shock: Status: Acute (4) Volume overload: Status: Acute (5) Right ventricular dilation: Status: Acute (6) Insulin dependent type 2 diabetes mellitus, controlled: Status: Acute (7) Cellulitis of left lower extremity: Status: Acute (8) Acute respiratory failure with hypoxia: Status: Acute (9) Atrial fibrillation, persistent: Status: Chronic (10) Leukocytosis: Status: Acute (11) Acidosis, lactic: Status: Acute (12) KEVIN (acute kidney injury): Status: Acute Assessment and plan: This is a 72 yoadmitted to the ICU for sepsis from a cellulitis resulting in cardiogenic shock in the setting of compromised baseline cardiac function. His blood pressure dropped overnight and he was unfortunately given more fluids and then when this did not solve the issue, was started on Levophed. I suspect he has a component of cardiogenic shock at play resultant from his sepsis. Fluids should be avoided in him. His IVC this morning was 2.43cm and was plethoric, indicating a degree of volume overload, and certainly elevated right sided pressures. Recommendations Pulmonary: Hypoxic respiratory failure - CPAP tonight and as needed - recommend 3LPM bleed through his home machine tonight - supplemental O2 as needed - IS and VibraPEP RUSSELL - home CPAP at night and naps - as above Cardiac: Cardiogenic shock - hold lasix for now given tenuous BP's - consider restarting Lasix tomorrow if BP holds - I/O's - even to negative fluid balance - if BP again drops on art line, recommend epinephrine peripherally and central line placement - MAP 65 mmHg goal A. fib - Xarelto - monitor HR - continue Tikosyn RV dilation - likely pulmonary hypertension - maintain euvolemia Renal: KEVIN - congestion versus sepsis - monitor Lactic Acidosis - continue to trend to <3 I&O: Intake & Output 02/07/23 02/08/23 02/09/23 02/10/23 23:59 23:59 23:59 23:59 Intake Total 1766.667 / 6895.419 7053.333 / 4108.333 1330 / 1330 Output Total 4025 / 4025 375 / 375 Balance 1766.667 / 1766.667 73.333 / 83.333 955 / 955 Weight 74.2 kg Daily Fluid Goal:: even GI Nutrition: OK for diet Date of Last Bowel Movement: 02/08/23 Infectious Disease: Cellulitis with Sepsis - agree with vanc and Zosyn for now - blood cultures pending - change prn tylenol to standing Hematologic: Leukocytosis - due to sepsis Neurologic: No acute concerns Endocrine: Diabetes - pump stopped - on Lantus Lines: PIV Duarte Prophylaxis: Xarelto Code Status: Resuscitation Status Full Code Subjective Critical and life-threatening events over the past 24 hours: Ted became hypotensive overnight and unfortunately was given more fluids which did not help. He was started on Levophed peripherally. I inserted an arterial line this morning which found adequate MAPs when off of Levophed. I suspect his sepsis from his cellulitis and too much volume replacement has caused RV dysfunction resulting in heart failure. He was also placed on BiPAP overnight, again unsure the reason for this versus CPAP. This morning I took him off BiPAP and he was saturating well on 3LPM nasal cannula. His white count is improved from yesterday, his lactate has normalized and clinically he appears well. He feels good. Does have pain in the left leg where the cellulitis is. Exam Narrative Exam Narrative: Gen: NAD, normal respiratory effort, well-nourished HENT: PERRL, moist oral mucosa Chest: NModerate respiratory distress, bilateral posterior crackles Heart: regular rate and rhythym, no murmurs, rubs or gallops Abdomen: Non-distended, soft, non tender Extremities: No clubbing, 3+ edema to knee, left leg with erythema and tenderness, slightly improved from yesterday Neuro: AAOx3 , non focal Psych: cooperative, appropriate mental affect Most Recent VS/Results Last Vital Signs Temp 37.6 C H 02/10/23 04:43 Pulse 73 02/10/23 08:28 Resp 16 02/10/23 08:28 BP 113/39 L 02/10/23 07:01 Pulse Ox 95 02/10/23 08:28 Laboratory Results - last 24 hr 02/09/23 02/09/23 02/09/23 07:47 10:57 14:00 WBC RBC Hgb Hct MCV MCH MCHC RDW Plt Count MPV Immature Gran % Neutrophils % Band Neutrophils % Lymphocytes % Monocytes % Eosinophils % Basophils % Nucleated RBC % Absolute Neutrophils Absolute Lymphocytes Absolute Monocytes Absolute Eosinophils Absolute Basophils RBC Morphology ABG Sample Site Cancelled ABG pH Cancelled ABG pCO2 Cancelled ABG pO2 Cancelled ABG HCO3 Cancelled ABG Total CO2 Cancelled ABG O2 Saturation Cancelled ABG Base Excess Cancelled VBG pH VBG pCO2 VBG pO2 VBG HCO3 VBG Total CO2 VBG O2 Saturation VBG Base Excess VBG Lactate 6.5 H* Oxygen Liter Flow Cancelled FiO2 Cancelled Sodium Potassium Chloride Carbon Dioxide Anion Gap BUN Creatinine Est GFR (CKD-EPI 2020) Glucose Calcium Magnesium C-Reactive Protein Urine Color Yellow Urine Clarity Clear Urine pH 5.0 Ur Specific [place] 1.015 Urine Protein 30 H Urine Ketones Negative Urine Blood Small H Urine Nitrite Negative Urine Bilirubin Negative Urine Urobilinogen 0.2 Ur Leukocyte Esterase Negative Urine RBC 3-5 H Urine WBC Negative Ur Epithelial Cells Rare Urine Crystals Negative Urine Bacteria Negative Urine Casts 0-2 Hyaline Urine Mucus Negative Ur Culture Indicated? No Urine Glucose 500 H 02/09/23 02/09/23 02/09/23 14:15 14:15 14:15 WBC RBC Hgb Hct MCV MCH MCHC RDW Plt Count MPV Immature Gran % Neutrophils % Band Neutrophils % Lymphocytes % Monocytes % Eosinophils % Basophils % Nucleated RBC % Absolute Neutrophils Absolute Lymphocytes Absolute Monocytes Absolute Eosinophils Absolute Basophils RBC Morphology ABG Sample Site ABG pH ABG pCO2 ABG pO2 ABG HCO3 ABG Total CO2 ABG O2 Saturation ABG Base Excess VBG pH 7.46 H VBG pCO2 35 L VBG pO2 57 VBG HCO3 25 VBG Total CO2 23 L VBG O2 Saturation 92 VBG Base Excess 1 VBG Lactate 5.1 H* Oxygen Liter Flow FiO2 Sodium 135 L Potassium 3.3 L Chloride 98 Carbon Dioxide 25.1 Anion Gap 11.9 H BUN 37 H Creatinine 2.0 H Est GFR (CKD-EPI 2020) 34.81 Glucose 424 H Calcium 8.0 L Magnesium C-Reactive Protein Urine Color Urine Clarity Urine pH Ur Specific [place] Urine Protein Urine Ketones Urine Blood Urine Nitrite Urine Bilirubin Urine Urobilinogen Ur Leukocyte Esterase Urine RBC Urine WBC Ur Epithelial Cells Urine Crystals Urine Bacteria Urine Casts Urine Mucus Ur Culture Indicated? Urine Glucose 02/09/23 02/10/23 02/10/23 19:30 04:40 04:44 WBC RBC Hgb Hct MCV MCH MCHC RDW Plt Count MPV Immature Gran % Neutrophils % Band Neutrophils % Lymphocytes % Monocytes % Eosinophils % Basophils % Nucleated RBC % Absolute Neutrophils Absolute Lymphocytes Absolute Monocytes Absolute Eosinophils Absolute Basophils RBC Morphology ABG Sample Site ABG pH ABG pCO2 ABG pO2 ABG HCO3 ABG Total CO2 ABG O2 Saturation ABG Base Excess VBG pH VBG pCO2 VBG pO2 VBG HCO3 VBG Total CO2 VBG O2 Saturation VBG Base Excess VBG Lactate 2.4 H* 1.8 H Oxygen Liter Flow FiO2 Sodium 138 Potassium 3.4 L Chloride 103 Carbon Dioxide 26.0 Anion Gap 9.0 BUN 48 H Creatinine 2.1 H Est GFR (CKD-EPI 2020) 32.83 Glucose 237 H Calcium 7.6 L Magnesium 2.0 C-Reactive Protein > 25.00 H Urine Color Urine Clarity Urine pH Ur Specific [place] Urine Protein Urine Ketones Urine Blood Urine Nitrite Urine Bilirubin Urine Urobilinogen Ur Leukocyte Esterase Urine RBC Urine WBC Ur Epithelial Cells Urine Crystals Urine Bacteria Urine Casts Urine Mucus Ur Culture Indicated? Urine Glucose 02/10/23 02/10/23 04:44 07:30 WBC 33.98 H* RBC 3.36 L Hgb 11.3 L Hct 33.2 L MCV 99 H MCH 33.6 H MCHC 34.0 RDW 15.3 H Plt Count 150 MPV 11.8 H Immature Gran % 0.0 Neutrophils % 95.0 Band Neutrophils % 0 Lymphocytes % 2.0 Monocytes % 3.0 Eosinophils % 0.0 Basophils % 0.0 Nucleated RBC % 0.0 Absolute Neutrophils 32.28 H Absolute Lymphocytes 0.68 L Absolute Monocytes 1.02 H Absolute Eosinophils 0.00 Absolute Basophils 0.00 RBC Morphology Normal ABG Sample Site ABG pH ABG pCO2 ABG pO2 ABG HCO3 ABG Total CO2 ABG O2 Saturation ABG Base Excess VBG pH VBG pCO2 VBG pO2 VBG HCO3 VBG Total CO2 VBG O2 Saturation VBG Base Excess VBG Lactate 2.6 H* Oxygen Liter Flow FiO2 Sodium Potassium Chloride Carbon Dioxide Anion Gap BUN Creatinine Est GFR (CKD-EPI 2020) Glucose Calcium Magnesium C-Reactive Protein Urine Color Urine Clarity Urine pH Ur Specific [place] Urine Protein Urine Ketones Urine Blood Urine Nitrite Urine Bilirubin Urine Urobilinogen Ur Leukocyte Esterase Urine RBC Urine WBC Ur Epithelial Cells Urine Crystals Urine Bacteria Urine Casts Urine Mucus Ur Culture Indicated? Urine Glucose Review of Systems All systems reviewed & are unremarkable except as noted in HPI and below Time spent with patient Time spent in Critical Care: 60 Time spent in Critical care included: Performing procedures not included in c.c time, Chart review, Documenting critically ill care, Time at immediate bedside and Discussing critically ill care with other medical staff Procedure Note Date of procedure: 02/10/23 Procedure: Arterial Line Placement Performed by: Candice Sauer MD Indications and/or Provisional Diagnosis: Invasive hemodynamic monitoring Consent: The patient has been informed and understands the information and situation provided to them about the procedure. They have capacity and ability to weigh risks, goals and benefits as well as the alternatives of proposed treatments including the option of not undergoing the procedure. The patient has expressed their rationale and executed the choice to proceed forward with the procedure with no undue influence or coercion. Type of Anesthesia/Sedation: Local anesthetic with 1% lidocaine was administered Fluids Given: See I&O Unless otherwise noted, there was no blood loss, specimens removed, cultures obtained, or drains retained. Time Out: A time-out was completed prior to procedure verifying correct patient, procedure, site, positioning, and special equipment if applicable. Procedure Technique/Description of Procedure: The patient was prepped and draped in the usual sterile fashion. An arterial line was introduced percutaneously and via the Seldinger technique into the left radial artery after 1 attempt(s). Good blood return without significant extremity blanching was noted. Good arterial wave form was noted. Blood loss was minimal. Post Procedure Diagnosis and Findings: Same as Indications and/or Provisional Diagnosis Complications: None Candice Sauer MD Pulmonary & Critical Care Multi-Disciplinary Checklist Lines/Tubes CENTRAL LINE: no ARTERIAL LINE: yes, Arterial Line Day#: 0 DUARTE: yes, Duarte Day#: 1 ENDOTRACHEAL TUBE: no ICU Maintenance GLUCOSE 140-180mg/dL: no, Reason/Intervention: Hospitalist team adjusting insulin coverage NUTRITION AT GOAL: yes PRESSURE ULCER: no RESTRAINTS: no ANTIBIOTICS(if yes, consider Stewardship): Yes Social Issues FAMILY UPDATED: yes PT/OT: no, Reason/Intervention: not appropriate at this time 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
[2023-02-10] MEDS: Potassium Chloride 20 MEQ TABCR 40 MEQ PO (09:12)
[2023-02-10] MEDS: Dofetilide 250 MCG CAP PO (09:13)
[2023-02-10] MEDS: Cholecalciferol (Vitamin D3) 1,000 UNIT TAB 2000 UNITS PO (09:13)
[2023-02-10] MEDS: Insulin Glargine 300 UNITS/3 ML PEN 40 UNITS SC (09:14)
[2023-02-10] MEDS: Insulin Aspart 300 UNITS/3 ML PEN SC ×7 (09:18→22:25)
--- NOTE | 2023-02-10 09:27 | PGE_ITS ---
Date of Service Date of service: 02/10/23 Time of Service: 09:28 Assessment and Plan Assessment and plan (1) Sepsis: Status: Acute Assessment and plan: Due to cellulitis, present on admission. Original blood cultures negative; repeat from last night is pending. Continue vancomyin/zosyn empirically. LA better. WBC better. Trend CRP and procalcitonin. CT LLE w/o evidence of anything that would require surgical intervention. (2) Shock: Status: Acute Assessment and plan: Possibly multifactorial. It is difficult to rule out a septic component entirely, but there does seem to be a cardiogenic component as well. Avoid RV volume overload. Not requiring vasopressors at this time. Monitor BPs with L radial arterial line. Continue abx. (3) Cellulitis of left lower extremity: Status: Acute Assessment and plan: As above (4) Acute respiratory failure with hypoxia: Status: Acute Assessment and plan: Clinically, likely related to fluid overload. Holding off of further diuresis this morning. Nor are we giving any more IVF at this time. CTA chest no longer deemed necessary due to a very positive response to diuresis yesterday. Continue CPAP at night and prn. (5) Right ventricular dilation: Status: Acute Assessment and plan: As above Does have a h/o R-sided [place]. We are obtaining PCP records. FOr now, avoid IVF. Will diurese as necessary. (6) Acute kidney injury superimposed on chronic kidney disease: Status: Acute Assessment and plan: As above. Some of this is likely due to sepsis, but otherwise, there is a concern for a cardiorenal/passive congestion component. Treat infection. Currently neither diuresing nor giving IVF. Maintain MAP >65. Mointor UOP, I/Os, daily weights, Cr. (7) Acute CHF: Status: Acute Assessment and plan: As above LVEF of 55% without wall motion abnormalities. VR is mildly dilated. (8) Type 1 diabetes mellitus on insulin therapy: Status: Chronic Assessment and plan: Pump discontinued. Titrate basal bolus insulin to target BG of 140-180. (9) Acidosis, lactic: Status: Acute Assessment and plan: Improved. I suspect some of this was due to passive congestion of the liver but also sepsis. Continue treatment of infection. Avoid further IV hydration. (10) RUSSELL on CPAP: Status: Chronic Assessment and plan: Continue CPAP (11) Atrial fibrillation, persistent: Status: Chronic Assessment and plan: Renally adjust dofetilide and xarelto. Discussed with pharmacy. Continue cardiac monitoring. (12) DVT prophylaxis: Status: Acute Assessment and plan: On therapeutic xarelto (13) Discharge planning issues: Status: Acute Assessment and plan: Full code Keep in the ICU. Total Critical Care Time [address] Sauer. Subjective Subjective Interval history since last seen: Mr Escobar feels a little better this am, but states he had a rough night. Tmax of 40.1 Celcius. He did require initiation of norepinephrine overnight, though he says that BPs on his R arm are never accurate because he always has high tension in that arm after a previous stroke. Norepinephrine had been discontinued since insertion of an arterial line this morning showing MAPs >65. Spent the night on BiPAP with FiO2 of 30%. Received about 500 cc of IVF overnight. Denies dizziness, CP, SOB, n/v. States he does not get heartburn. Last BM 2 days ago. Nursing had noted an area of swelling in his left groin yesterday evening, for which the patient ended up getting a CT of his LLE, showing lymphadenopathy and cellulitis, nothing drainable. Exam Narrative Exam Narrative: General: Pleasant obese male who looks better, on 2.5 L of O2 by NC, laying flat in bed - no dyspnea, tachypnea, or cyanosis. HEENT: EOMI, MMM Heart: irregularly irregular rhythm, no m/r/g Lungs: Faint rales at B bases Abdomen: soft, nontender, nondistended Extremities: LUE arterial line in place; LLE with less erythema distally; the swelling in L groin/inguinal area is actually less firm and feels slightly smaller. Very minimal erythema over this, very mild. Objective Last Vital Signs Temp 37.6 C H 02/10/23 04:43 Pulse 73 02/10/23 08:28 Resp 16 02/10/23 08:28 BP 113/39 L 02/10/23 07:01 Pulse Ox 95 02/10/23 08:28 Laboratory Results - last 24 hr 02/09/23 02/09/23 02/09/23 07:47 10:57 14:00 WBC RBC Hgb Hct MCV MCH MCHC RDW Plt Count MPV Immature Gran % Neutrophils % Band Neutrophils % Lymphocytes % Monocytes % Eosinophils % Basophils % Nucleated RBC % Absolute Neutrophils Absolute Lymphocytes Absolute Monocytes Absolute Eosinophils Absolute Basophils RBC Morphology ABG Sample Site Cancelled ABG pH Cancelled ABG pCO2 Cancelled ABG pO2 Cancelled ABG HCO3 Cancelled ABG Total CO2 Cancelled ABG O2 Saturation Cancelled ABG Base Excess Cancelled VBG pH VBG pCO2 VBG pO2 VBG HCO3 VBG Total CO2 VBG O2 Saturation VBG Base Excess VBG Lactate 6.5 H* Oxygen Liter Flow Cancelled FiO2 Cancelled Sodium Potassium Chloride Carbon Dioxide Anion Gap BUN Creatinine Est GFR (CKD-EPI 2020) Glucose Calcium Magnesium C-Reactive Protein Urine Color Yellow Urine Clarity Clear Urine pH 5.0 Ur Specific [place] 1.015 Urine Protein 30 H Urine Ketones Negative Urine Blood Small H Urine Nitrite Negative Urine Bilirubin Negative Urine Urobilinogen 0.2 Ur Leukocyte Esterase Negative Urine RBC 3-5 H Urine WBC Negative Ur Epithelial Cells Rare Urine Crystals Negative Urine Bacteria Negative Urine Casts 0-2 Hyaline Urine Mucus Negative Ur Culture Indicated? No Urine Glucose 500 H 02/09/23 02/09/23 02/09/23 14:15 14:15 14:15 WBC RBC Hgb Hct MCV MCH MCHC RDW Plt Count MPV Immature Gran % Neutrophils % Band Neutrophils % Lymphocytes % Monocytes % Eosinophils % Basophils % Nucleated RBC % Absolute Neutrophils Absolute Lymphocytes Absolute Monocytes Absolute Eosinophils Absolute Basophils RBC Morphology ABG Sample Site ABG pH ABG pCO2 ABG pO2 ABG HCO3 ABG Total CO2 ABG O2 Saturation ABG Base Excess VBG pH 7.46 H VBG pCO2 35 L VBG pO2 57 VBG HCO3 25 VBG Total CO2 23 L VBG O2 Saturation 92 VBG Base Excess 1 VBG Lactate 5.1 H* Oxygen Liter Flow FiO2 Sodium 135 L Potassium 3.3 L Chloride 98 Carbon Dioxide 25.1 Anion Gap 11.9 H BUN 37 H Creatinine 2.0 H Est GFR (CKD-EPI 2020) 34.81 Glucose 424 H Calcium 8.0 L Magnesium C-Reactive Protein Urine Color Urine Clarity Urine pH Ur Specific [place] Urine Protein Urine Ketones Urine Blood Urine Nitrite Urine Bilirubin Urine Urobilinogen Ur Leukocyte Esterase Urine RBC Urine WBC Ur Epithelial Cells Urine Crystals Urine Bacteria Urine Casts Urine Mucus Ur Culture Indicated? Urine Glucose 02/09/23 02/10/23 02/10/23 19:30 04:40 04:44 WBC RBC Hgb Hct MCV MCH MCHC RDW Plt Count MPV Immature Gran % Neutrophils % Band Neutrophils % Lymphocytes % Monocytes % Eosinophils % Basophils % Nucleated RBC % Absolute Neutrophils Absolute Lymphocytes Absolute Monocytes Absolute Eosinophils Absolute Basophils RBC Morphology ABG Sample Site ABG pH ABG pCO2 ABG pO2 ABG HCO3 ABG Total CO2 ABG O2 Saturation ABG Base Excess VBG pH VBG pCO2 VBG pO2 VBG HCO3 VBG Total CO2 VBG O2 Saturation VBG Base Excess VBG Lactate 2.4 H* 1.8 H Oxygen Liter Flow FiO2 Sodium 138 Potassium 3.4 L Chloride 103 Carbon Dioxide 26.0 Anion Gap 9.0 BUN 48 H Creatinine 2.1 H Est GFR (CKD-EPI 2020) 32.83 Glucose 237 H Calcium 7.6 L Magnesium 2.0 C-Reactive Protein > 25.00 H Urine Color Urine Clarity Urine pH Ur Specific [place] Urine Protein Urine Ketones Urine Blood Urine Nitrite Urine Bilirubin Urine Urobilinogen Ur Leukocyte Esterase Urine RBC Urine WBC Ur Epithelial Cells Urine Crystals Urine Bacteria Urine Casts Urine Mucus Ur Culture Indicated? Urine Glucose 02/10/23 02/10/23 04:44 07:30 WBC 33.98 H* RBC 3.36 L Hgb 11.3 L Hct 33.2 L MCV 99 H MCH 33.6 H MCHC 34.0 RDW 15.3 H Plt Count 150 MPV 11.8 H Immature Gran % 0.0 Neutrophils % 95.0 Band Neutrophils % 0 Lymphocytes % 2.0 Monocytes % 3.0 Eosinophils % 0.0 Basophils % 0.0 Nucleated RBC % 0.0 Absolute Neutrophils 32.28 H Absolute Lymphocytes 0.68 L Absolute Monocytes 1.02 H Absolute Eosinophils 0.00 Absolute Basophils 0.00 RBC Morphology Normal ABG Sample Site ABG pH ABG pCO2 ABG pO2 ABG HCO3 ABG Total CO2 ABG O2 Saturation ABG Base Excess VBG pH VBG pCO2 VBG pO2 VBG HCO3 VBG Total CO2 VBG O2 Saturation VBG Base Excess VBG Lactate 2.6 H* Oxygen Liter Flow FiO2 Sodium Potassium Chloride Carbon Dioxide Anion Gap BUN Creatinine Est GFR (CKD-EPI 2020) Glucose Calcium Magnesium C-Reactive Protein Urine Color Urine Clarity Urine pH Ur Specific [place] Urine Protein Urine Ketones Urine Blood Urine Nitrite Urine Bilirubin Urine Urobilinogen Ur Leukocyte Esterase Urine RBC Urine WBC Ur Epithelial Cells Urine Crystals Urine Bacteria Urine Casts Urine Mucus Ur Culture Indicated? Urine Glucose Objective Narrative Objective Narrative: CT LLE: There is diffuse edema of the soft tissues of the left lower leg without evidence of a discrete abscess and no evidence of osteomyelitis.? Findings are consistent with diffuse cellulitis.? There are prominent lymph nodes in the ipsilateral left inguinal region. Echo: Normal left ventricular wall thickness and chamber size.? Ejection fractio n is 55%.? Wall motion is normal Mildly dilated right ventricle with preserved systolic function Normal left atrial size.? The right atrium is mildly enlarged Aortic valve is sclerotic and trileaflet with mild regurgitation Normal mitral valve with trace to mild regurgitation Right ventricular systolic pressure could not be estimated US venous BLEs: Right: Negative for DVT Left: Negative for DVT Multi-Disciplinary Checklist Lines/Tubes CENTRAL LINE: no ARTERIAL LINE: yes, Arterial Line Day#: 0 DUARTE: yes, Duarte Day#: 1 Note: was retaining urine when duarte was inserted - about 400 cc ENDOTRACHEAL TUBE: no ICU Maintenance GLUCOSE 140-180mg/dL: no, Reason/Intervention: Basal bolus insulin is being adjusted NUTRITION AT GOAL: yes PRESSURE ULCER: no RESTRAINTS: no ANTIBIOTICS(if yes, consider Stewardship): Yes Social Issues FAMILY UPDATED: yes PT/OT: no, Reason/Intervention: Not clinically appropriate 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
[2023-02-10] MEDS: Acetaminophen 500 MG TAB PO ×3 (09:34→19:59)
[2023-02-10] MEDS: Gabapentin 300 MG CAP PO ×3 (09:34→19:59)
[2023-02-10] MEDS: VANCOMYCIN/WATER (PEG) 1.25 GM/250 ML BAG IV (10:10)
[2023-02-10] MEDS: Normal Saline Flush 10 ML SYR IVP (10:11)
--- NOTE | 2023-02-10 10:12 | CMPROGNOTE_ITS ---
Date of service: 02/10/23 Time of Service: 10:12 Care Management Progress Note Progress Note Text Progress Note Text: S/O:Ted is being closely monitored and treated in the ICU. He is sleeping in his chair when CM attempted to meet with him. Per nursing his family visited throughout the morning and pts son emailed a list of local providers, to be given to the Hospitalist. Per MD, family have advocated for transfer however pt does not meet medical necessity to move to another hospital at this time. DM education is planned for tomorrow, coordinated by CM. CM will follow. A: 72 year old male admitted to [facility] on 02/08/23 for ?Cellulitis, lactic acidosis , IDDM P: Ted was transferred to the ICU for increased monitoring; Diabetic Education consult will be on 02/11/23, and further evaluations prior to discharge to inform discharge planning considerations. CM continues to follow.
[2023-02-10] MEDS: Rivaroxaban 15 MG TABLET PO (17:22)
[2023-02-10] MEDS: Rosuvastatin 20 MG TAB PO (19:59)
[2023-02-11] VITALS (28 sets, daily range): BP systolic 121–156; BP diastolic 38–66; PULSE 52–98; RESP 14–28; TEMP 36.3–37.2; O2SAT 90–98
[2023-02-11] MEDS: Ketorolac 30 MG/ML VIAL 15 MG IVP (01:32)
[2023-02-11] MEDS: MORPHine 2 MG/ML SYR IVP (01:32)
[2023-02-11] MEDS: Levothyroxine 50 MCG TAB PO (05:24)
[2023-02-11] MEDS: PIPERACILLIN/TAZO 3.375 GM in Normal Saline 50 ML IV ×3 (05:24→21:49)
[2023-02-11 07:05] LABS: Absolute Lymphocyte Count 0.93 10^3/uL (1.2-3.4); Absolute Neutrophil Count 30.16 10^3/uL (1.2-6.7); Basophils % 0.3; Eosinophils % 0.2; HCT 31.2 % (40.0-50.0); HGB 10.9 g/dL (13.5-17.5); Immature Grans % 2.7; Lymphocytes % 2.8; MCH 33.9 pg (27.0-33.0); MCHC 34.9 % (32.0-36.0); MCV 97 fL (80-95); MPV 12.7 fL (8.0-11.0); Platelet Count 170 10^3/uL (130-400); RBC 3.22 10^6/uL (4.36-5.78); RDW 14.9 % (11.8-14.1); RDW-SD 53.3 fL
[2023-02-11 07:23] LABS: ALT 58 U/L (16-63); AST 70 U/L (15-37); Albumin 2.1 g/dL (3.4-5.0); Alkaline Phosphatase 161 U/L (46-116); Anion Gap 9.5 mmol/L (3-11); BUN 62 mg/dL (7-18); Bilirubin, Direct 0.3 mg/dL (0.0-0.2); Bilirubin, Total 0.6 mg/dL (0.2-1.0); CO2 25.5 mmol/L (21.0-32.0); CREATININE 1.8 mg/dL (0.70-1.30); Calcium 7.9 mg/dL (8.5-10.1); Chloride 102 mmol/L (98-107); Glucose 195 mg/dL (74-106); Magnesium 2.3 mg/dL (1.8-2.4); Potassium 3.2 mmol/L (3.5-5.1); Sodium 137 mmol/L (136-145); Total Protein 6.5 g/dL (6.4-8.2)
[2023-02-11 07:48] LABS: Absolute Eosinophil Count 0.07 10^3/uL (0.0-0.7); Absolute Monocyte Count 0.99 10^3/uL (0.1-0.8); WBC 33.14 10^3/uL (4.4-10.8)
[2023-02-11 07:52] LABS: Diff Comment Diff Reviewed; RBC Morphology Normal
[2023-02-11 08:16] LABS: C-Reactive Protein > 25.00 mg/dL (0.0-0.3)
[2023-02-11 08:39] LABS: Procalcitonin 16.6 ng/mL
--- NOTE | 2023-02-11 09:25 | DM INPTCON_ITS ---
Date of service: 02/11/23 Time of Service: 09:25 Diabetes Inpatient Consult Reason for Visit: Diabetes Consult DESCRIPTION/ASSESSMENT: 72yo male admitted with KEVIN/CKD, with PMH hx significant for Type I Diabetes related to s/p pancreatectomy over 10 years ago. Pt is on 40 units Glargine, 1- 30 units Aspart on a 1:5 ratio at meals and a resistant sliding scale of Apsart for corrections during admission. He is sitting upon my visit and has 3 family members at his side. He states he usually uses a Medtronic insulin pump at home along with the Marqui 3 glucose sensor. It is set up to deliver his 40 basal units of insulin and he programs for his CHO load at meals (1:5 ratio). He states his last Hgb A1C was 7.8 this last October and his pump is programmed to keep his glucose in a goal range of 120-180mg/dL - pt reports he is in this rant 87% of the time per his sensor data. No identified barriers to eating healthy. He and his often eat smaller meals and have their largest meal around 2pm - this can often be going out to eat as they report often it gets tedious and difficult cooking for two. Estimated Nutrition Needs - 1740kcals ([id number]), 60g protein (.8g/kg) and 1740 mL fluid (1mL/kcal) INTERVENTION: I offered my contact information if he desires to get together in the outpatient setting for menu planning strategies with just the two of them in the house. PLAN: Mr Escobar will continue to have his glucose covered with the above regimen while admitted and expects to transition back to his insulin pump/CGM upon discharge. Will remain available for education as requested. Time Spent in Nutritional Counseling and Treatment: 15 minutes
[2023-02-11] MEDS: VANCOMYCIN/WATER (PEG) 1.25 GM/250 ML BAG IV (09:46)
[2023-02-11] MEDS: Normal Saline Flush 10 ML SYR IVP (09:46)
[2023-02-11] MEDS: Furosemide 40 MG/4 ML VIAL IVP ×2 (09:48→09:50)
[2023-02-11] MEDS: Aspirin E.C. 81 MG TABEC PO (09:49)
[2023-02-11] MEDS: Gabapentin 300 MG CAP PO ×3 (09:49→19:35)
[2023-02-11] MEDS: Acetaminophen 500 MG TAB PO ×3 (09:49→19:36)
[2023-02-11] MEDS: Potassium Chloride 20 MEQ TABCR 40 MEQ PO ×2 (09:50)
[2023-02-11] MEDS: Cholecalciferol (Vitamin D3) 1,000 UNIT TAB 2000 UNITS PO (09:50)
--- NOTE | 2023-02-11 10:06 | PGE_ITS ---
Date of Service Date of service: 02/11/23 Time of Service: 10:07 Assessment and Plan Assessment and plan (1) Sepsis: Status: Acute Assessment and plan: Due to cellulitis, present on admission. Original blood cultures as well as repeat (done on abx) show NGTD. Continue vancomyin/zosyn empirically. CT LLE w/o evidence of anything that would require surgical intervention. WBC not budging: if not improved tomorrow, would repeat imaging to ensure that an abscess has not formed now. Trend CRP and procalcitonin. (2) Shock: Status: Resolved Assessment and plan: Possibly multifactorial. It is difficult to rule out a septic component entirely, but there does seem to be a cardiogenic component as well. Avoid RV volume overload. Not requiring vasopressors at this time. Monitor BPs with L radial arterial line. We might be able to remove this later today if BPs tolerate re-initiation of furosemide. Continue abx. (3) Cellulitis of left lower extremity: Status: Acute Assessment and plan: As above (4) Acute respiratory failure with hypoxia: Status: Resolved Assessment and plan: Not requiring O2 when awake. Did need 2L w/ sleep. Clinically, likely related to fluid overload. Resume furosemide and monitor BP as well as respiratory status. Continue CPAP at night and prn. (5) Right ventricular dilation: Status: Acute Assessment and plan: As above Does have a h/o R-sided IA. We are obtaining PCP records. FOr now, avoid IVF. Reduce diuresis. (6) Acute kidney injury superimposed on chronic kidney disease: Status: Acute Assessment and plan: As above. Cr is down to 1.8, improved. Some of this is likely due to sepsis, but otherwise, there is a concern for a cardiorenal/passive congestion component. Treat infection. Resume diuresis and monitor. Maintain MAP >65. Mointor UOP, I/Os, daily weights, Cr. (7) Acute CHF: Status: Acute Assessment and plan: As above LVEF of 55% without wall motion abnormalities. VR is mildly dilated. Resume diuresis Monitor I/Os, BP. (8) Type 1 diabetes mellitus on insulin therapy: Status: Chronic Assessment and plan: Pump discontinued. Titrate basal bolus insulin to target BG of 140-180. Increase basal bolus insulin (9) Acidosis, lactic: Status: Acute Assessment and plan: Improved. I suspect some of this was due to passive congestion of the liver but also sepsis. Continue treatment of infection. Avoid further IV hydration. (10) RUSSELL on CPAP: Status: Chronic Assessment and plan: Continue CPAP (11) Atrial fibrillation, persistent: Status: Chronic Assessment and plan: Cotninue Renally adjusted dofetilide and xarelto. Continue cardiac monitoring. (12) DVT prophylaxis: Status: Acute Assessment and plan: On therapeutic xarelto (13) Discharge planning issues: Status: Acute Assessment and plan: Full code Keep in the ICU for now to ensure the BP does not drop with reinitiation of furosemide Subjective Subjective Interval history since last seen: I'm doing better. Still has pain in L ankle. Notices that his LLE is more swollen, especially after being in a dependent position. The swelling in the groin has improved. Denies dizziness, CP, SOB, nausea. It's been 3 days since his last BM. Has not required resumption of vasopressors. MAPs consistently greater than 65. Liz remains in place. Exam Narrative Exam Narrative: General: Pleasant obese male who looks better, on RA, sitting up in a chair with his LLE elvated, Liz in place LUE, no dyspnea, tachypnea, or cyanosis. HEENT: EOMI, MMM Heart: irregularly irregular rhythm, no m/r/g Lungs: CTAB Abdomen: soft, nontender, nondistended Extremities: LUE arterial line in place; LLE with less erythema distally, but still warm to touch, + 1 pedal edema on L, the swelling in L groin/inguinal area is less firm and feels slightly smaller. trace edema RLE Objective Last Vital Signs Temp 36.3 C L 02/11/23 04:09 Pulse 73 02/11/23 04:09 Resp 17 02/11/23 04:09 BP 121/43 L 02/11/23 04:09 Pulse Ox 90 L 02/11/23 06:00 Laboratory Results - last 24 hr 02/11/23 02/11/23 02/11/23 05:40 05:40 05:40 WBC 33.14 H* RBC 3.22 L Hgb 10.9 L Hct 31.2 L MCV 97 H MCH 33.9 H MCHC 34.9 RDW 14.9 H Plt Count 170 MPV 12.7 H Immature Gran % 2.7 Neutrophils % 91.0 Lymphocytes % 2.8 Monocytes % 3.0 Eosinophils % 0.2 Basophils % 0.3 Nucleated RBC % 0.0 Absolute Neutrophils 30.16 H Absolute Lymphocytes 0.93 L Absolute Monocytes 0.99 H Absolute Eosinophils 0.07 Absolute Basophils 0.10 RBC Morphology Normal Sodium 137 Potassium 3.2 L Chloride 102 Carbon Dioxide 25.5 Anion Gap 9.5 BUN 62 H Creatinine 1.8 H Est GFR (CKD-EPI 2020) 39.50 Glucose 195 H Calcium 7.9 L Magnesium 2.3 Total Bilirubin 0.6 Conjugated Bilirubin 0.3 H AST 70 H ALT 58 Alkaline Phosphatase 161 H C-Reactive Protein > 25.00 H Total Protein 6.5 Albumin 2.1 L Procalcitonin 16.6 Time Spent with Patient Time Spent with Patient: 35-49 minutes Time was spent: preparing to see the patient(eg.review tests), obtaining and/or reviewing separately otained hiistory, ordering medications,tests, procedures, referring, communicating with other health respiratory care specialist, indepentently interpreting results, counseling the patient and care coordination
[2023-02-11] MEDS: Insulin Glargine 300 UNITS/3 ML PEN 40 UNITS SC (10:08)
[2023-02-11] MEDS: Insulin Aspart 300 UNITS/3 ML PEN SC ×7 (10:09→21:35)
[2023-02-11] MEDS: Milk of Magnesia 30 ML CUP PO (12:49)
[2023-02-11] MEDS: Insulin Glargine 300 UNITS/3 ML PEN 10 UNITS SC (12:49)
[2023-02-11] MEDS: Docusate Sodium 100 MG CAP PO ×2 (12:49→19:35)
[2023-02-11] MEDS: Normal Saline 500 ML IV (14:25)
[2023-02-11] MEDS: Rivaroxaban 15 MG TABLET PO (18:11)
[2023-02-11] MEDS: Rosuvastatin 20 MG TAB PO (19:37)
[2023-02-12] VITALS (46 sets, daily range): BP systolic 117–162; BP diastolic 45–95; PULSE 43–84; RESP 9–30; TEMP 36.7–37.5; O2SAT 89–96
[2023-02-12] MEDS: Ketorolac 30 MG/ML VIAL 15 MG IVP (04:15)
[2023-02-12] MEDS: PIPERACILLIN/TAZO 3.375 GM in Normal Saline 50 ML IV ×3 (05:55→21:23)
[2023-02-12] MEDS: Levothyroxine 50 MCG TAB PO (05:56)
[2023-02-12 06:48] LABS: Abs Immature Grans 0.36 10^3/uL (0.0-0.06); Absolute Basophil Count 0.08 10^3/uL (0.0-0.2); Absolute Eosinophil Count 0.06 10^3/uL (0.0-0.7); Absolute Lymphocyte Count 1.44 10^3/uL (1.2-3.4); Absolute Monocyte Count 1.42 10^3/uL (0.1-0.8); Basophils % 0.4; Eosinophils % 0.3; HCT 31.5 % (40.0-50.0); HGB 10.9 g/dL (13.5-17.5); Immature Grans % 1.7; Lymphocytes % 6.9; MCHC 34.6 % (32.0-36.0); MCV 96 fL (80-95); MPV 12.4 fL (8.0-11.0); Monocytes % 6.8; Neutrophils % 83.9; Nucleated RBC 0.1 % (0.0-0.3); Platelet Count 195 10^3/uL (130-400); RDW 15.3 % (11.8-14.1); RDW-SD 53.8 fL; WBC 20.86 10^3/uL (4.4-10.8)
[2023-02-12 07:15] LABS: Vancomycin, Random 12.2 ug/mL
[2023-02-12 07:18] LABS: Anion Gap 9.8 mmol/L (3-11); BUN 53 mg/dL (7-18); C-Reactive Protein 19.52 mg/dL (0.0-0.3); CO2 26.2 mmol/L (21.0-32.0); CREATININE 1.4 mg/dL (0.70-1.30); Chloride 104 mmol/L (98-107); Glucose 71 mg/dL (74-106); Magnesium 2.4 mg/dL (1.8-2.4); Potassium 3.1 mmol/L (3.5-5.1); Sodium 140 mmol/L (136-145)
[2023-02-12] MEDS: Gabapentin 300 MG CAP PO (08:36)
[2023-02-12] MEDS: Potassium Chloride 10 MEQ CAPCR 20 MEQ PO ×4 (08:36→19:32)
[2023-02-12] MEDS: Cholecalciferol (Vitamin D3) 1,000 UNIT TAB 2000 UNITS PO (08:36)
[2023-02-12] MEDS: Aspirin E.C. 81 MG TABEC PO (08:37)
[2023-02-12] MEDS: Acetaminophen 500 MG TAB PO (08:37)
[2023-02-12] MEDS: POTASSIUM CHLORIDE 20 MEQ/100 ML BAG 50 MEQ IVPB (08:37)
[2023-02-12 08:58] LABS: BE (Venous) 3 mmol/L (-2-3); HCO3 (Venous) 27 mmol/L (23-28); O2 Sat (Venous) 91 %; TCO2 (Venous) 24 mmol/L (24-29); pCO2 (Venous) 37 mmHg (41-51); pH (Venous) 7.47 (7.31-7.41); pO2 (Venous) 57 mmHg
[2023-02-12 09:00] LABS: Lactate 2.1 mmol/L (0.6-1.4)
[2023-02-12] MEDS: Insulin Glargine 300 UNITS/3 ML PEN 50 UNITS SC (09:11)
[2023-02-12] MEDS: Insulin Aspart 300 UNITS/3 ML PEN SC ×5 (09:12→22:04)
[2023-02-12] MEDS: Linezolid 600 MG TAB PO ×2 (12:18→19:33)
--- NOTE | 2023-02-12 12:35 | W.PM.PROGNOT ---
Date of Service Date of service: 02/12/23 Time of Service: 12:35 Assessment and Plan Assessment and plan (1) Sepsis: Status: Acute Assessment and plan: Blood cultures are no growth to date from both 02/08/2023 and 02/09/2023. Patient is currently on Zosyn 3.375 g IV every 8 hours over an extended infusion along with vancomycin. However in the setting of his acute on chronic kidney failure combination of Zosyn and vancomycin is not advisable. I have switched his vancomycin to oral Zyvox. Zyvox also has his particular concerns for rhabdomyolysis as well as lactic acidosis. We will monitor his CK levels as well as his lactate levels. I had considered switching to meropenem from Zosyn but he has been responding to antibiotics with lack of fevers and declining leukocytosis and declining CRP. CT scan of his left leg did not show any abscess or evidence for fasciitis. We will check an MRI scan to rule out underlying osteomyelitis. I will resume diuretics as he has chronic bilateral leg edema. Patient has been hemodynamically stable and off N.E. since 02/10. I think that he can move to med/surg (2) Cellulitis of left lower extremity: Status: Acute Assessment and plan: As above check MRI of LLE tomorow (3) Acute kidney injury superimposed on chronic kidney disease: Status: Acute Assessment and plan: improving. BUN down to 53 and creatinine down to 1.4 (peak was 62 and 2.1), K is low 2nd to diuretics, receiving replacement (4) Acidosis, lactic: Status: Acute Assessment and plan: resolving. monitor until resolved (5) Type 1 diabetes mellitus on insulin therapy: Status: Chronic Assessment and plan: morning glucose down to 84. I will decrease his Lantus slightly. He is already on CHO (2: 5 gram) and sliding scale (resistant) (6) Cor pulmonale: Status: Acute Assessment and plan: His echocardiogram showed preserved left ventricular systolic function but mildly dilated RV with preserved RV systolic function. And although his RVSP cannot be estimated he does have some signs of chronically elevated pulmonary pressures with dilated right atrium as well as dilated right ventricle. (7) RUSSELL on CPAP: Status: Chronic Assessment and plan: Continue CPAP he has required additional oxygen to his CPAP at night per Jen from [facility]. He may need nocturnal oximetry study before dc home to see if he qualifies for home oxygen at night (8) Atrial fibrillation, persistent: Status: Chronic Assessment and plan: Cotninue Renally adjusted dofetilide and xarelto. Continue cardiac monitoring. (9) DVT prophylaxis: Status: Acute Assessment and plan: On therapeutic xarelto (10) Discharge planning issues: Status: Acute Assessment and plan: patient is full code, anticipate he will need home health w/ P.T. upon dc home. I will ask P.T. to evaluate him while he is here and begin exercises Subjective Subjective Interval history since last seen: Overall patient states he is feeling better although the left leg is still very taut and may. Since yesterday has been some increased redness spreading up the leg and nursing has remarked the margins of the erythema which now is just below the left knee. Left foot and ankle and calf are still very edematous and is weeping serous fluid. He has no dyspnea appetite is good overall he does feel that he is improving. Exam Narrative Exam Narrative: Morbidly obese older gentleman is sitting up in his chair alert and oriented person place time circumstance talk with his daughter eating his lunch. No acute distress Lungs are clear to auscultation Heart is irregularly irregular controlled rate Abdomen obese soft and nontender Lower extremities bilateral lower leg edema and pedal edema. Right foot and ankle is 1+ pitting edema left foot and ankle and pretibial surfaces 2+ over the tibia and 3+ edema of the ankle and foot. There is erythema of the left foot and ankle and tibia all the way to just below the tibial tuberosity there is serous drainage along the lower pretibial surface. Objective Last Vital Signs Temp 36.7 C 02/12/23 07:47 Pulse 54 L 02/12/23 10:01 Resp 24 02/12/23 10:01 BP 132/48 L 02/12/23 10:01 Pulse Ox 94 02/12/23 07:01 Laboratory Results - last 24 hr 02/12/23 02/12/23 02/12/23 05:33 05:33 05:33 WBC 20.86 H RBC 3.30 L Hgb 10.9 L Hct 31.5 L MCV 96 H MCH 33.0 MCHC 34.6 RDW 15.3 H Plt Count 195 MPV 12.4 H Immature Gran % 1.7 Neutrophils % 83.9 Lymphocytes % 6.9 Monocytes % 6.8 Eosinophils % 0.3 Basophils % 0.4 Nucleated RBC % 0.1 Absolute Neutrophils 17.50 H Absolute Lymphocytes 1.44 Absolute Monocytes 1.42 H Absolute Eosinophils 0.06 Absolute Basophils 0.08 VBG pH VBG pCO2 VBG pO2 VBG HCO3 VBG Total CO2 VBG O2 Saturation VBG Base Excess VBG Lactate Sodium 140 Potassium 3.1 L Chloride 104 Carbon Dioxide 26.2 Anion Gap 9.8 BUN 53 H Creatinine 1.4 H Est GFR (CKD-EPI 2020) 53.40 Glucose 71 L Calcium 8.0 L Magnesium 2.4 C-Reactive Protein 19.52 H Random Vancomycin 12.2 02/12/23 02/12/23 08:55 08:55 WBC RBC Hgb Hct MCV MCH MCHC RDW Plt Count MPV Immature Gran % Neutrophils % Lymphocytes % Monocytes % Eosinophils % Basophils % Nucleated RBC % Absolute Neutrophils Absolute Lymphocytes Absolute Monocytes Absolute Eosinophils Absolute Basophils VBG pH 7.47 H VBG pCO2 37 L VBG pO2 57 VBG HCO3 27 VBG Total CO2 24 VBG O2 Saturation 91 VBG Base Excess 3 VBG Lactate 2.1 H Sodium Potassium Chloride Carbon Dioxide Anion Gap BUN Creatinine Est GFR (CKD-EPI 2020) Glucose Calcium Magnesium C-Reactive Protein Random Vancomycin Reviewed Pertinent PMH: Yes Time Spent with Patient Time Spent with Patient: >50 minutes Time was spent: preparing to see the patient(eg.review tests), obtaining and/or reviewing separately otained hiistory, ordering medications,tests, procedures, referring, communicating with other health social worker palliative care, indepentently interpreting results, counseling the patient and care coordination
[2023-02-12] MEDS: Gabapentin 600 MG TAB PO ×2 (13:17→19:32)
[2023-02-12] MEDS: Acetaminophen 500 MG TAB 1000 MG PO ×2 (13:18→19:33)
--- NOTE | 2023-02-12 14:02 | W.POCUS ---
Pocus Exam Limited Cardiac Exam DATE OF EXAM: 02/12/23 PROVIDER THAT PERFORMED THE STUDY: Ryan Alvarado IS THIS A REPEAT EXAM DURING THIS ENCOUNTER: no REASON FOR EXAM: Hypotension
[2023-02-12] MEDS: Rivaroxaban 15 MG TABLET PO (16:19)
[2023-02-12] MEDS: Normal Saline Flush 10 ML SYR IVP ×2 (16:19→18:50)
[2023-02-12] MEDS: Furosemide 40 MG/4 ML VIAL IVP (16:19)
[2023-02-12 16:20] LABS: Potassium 3.2 mmol/L (3.5-5.1)
[2023-02-12] MEDS: Mylanta Suspension 30 ML CUP PO (17:07)
--- NOTE | 2023-02-12 17:15 | DI.RAD_ITS ---
Exam(s) XR PORTABLE CHEST AP EXAM: XR PORTABLE CHEST AP CLINICAL HISTORY: dyspnea. TECHNIQUE: 2D digital imaging was performed. COMPARISON: CR XR PORTABLE CHEST AP from 02/09/2023 FINDINGS: Single AP portable view. Heart size is upper normal. The mediastinum is not widened. Left lung is clear. Suspect subtle infiltrate right upper lobe. No pleural effusions. No pulmonary edema. IMPRESSION: Suspect subtle infiltrate in the right upper lobe. Cardiomegaly. No pulmonary edema. No obvious pleural effusions. DATA REPOSITORY: RADIATION DOSE DELIVERED:
[2023-02-12] MEDS: Potassium Chloride 10 MEQ CAPCR 40 MEQ PO (17:46)
--- NOTE | 2023-02-12 17:55 | DI.VRAD_ITS ---
PROCEDURE INFORMATION: Exam: XR Chest Exam date and time: 02/12/2023 5:41 PM Age: 72 years old Clinical indication: Dyspnea TECHNIQUE: Imaging protocol: Radiologic exam of the chest. Views: 1 view. COMPARISON: CR XR PORTABLE CHEST AP 02/09/2023 7:58 AM FINDINGS: Lungs: Stable mild diffuse pulmonary vascular prominence. No tomeka pulmonary consolidation. Pleural spaces: Unremarkable. No pleural effusion. No pneumothorax. Heart/Mediastinum: Unremarkable. No cardiomegaly. Bones/joints: Moderate degenerative changes throughout the thoracic spine and in both shoulders. Old, healed right clavicle fracture. IMPRESSION: No significant change from the study of 3 days previous. Dictated and Authenticated by: Dell Mcdonough MD. Ordering:.[facility] Jenny Davis MD
--- NOTE | 2023-02-12 18:15 | DI.CT_ITS ---
Exam(s) CT CHEST PE CTA EXAM: CT CHEST PE CTA CLINICAL HISTORY: dyspnea, hypoxia. TECHNIQUE: Imaging Protocol: Axial CT angiography was performed with multi-slice acquisition and mu lti-planar and/or 3D reconstructions. CONTRAST MATERIAL: Intravenous: Omnipaque 350 contrast volume:1 Sarabia mL COMPARISON: CT CT ABDOMEN PELVIS WO/W from 01/17/2020 FINDINGS: The examination is limited due to patient motion artifact. Tracheobronchial tree: Patent where visualized. Pulmonary parenchyma: There are moderate bilateral pleural effusions and subjacent infiltrates. No a rchitectural distortion. Pulmonary Arteries: No evidence of filling defect to suggest pulmonary emboli. Mild focal consolidati on in the right upper lobe. Mediastinum and Kaylyn: There is a 1.4 cm mediastinal lymph node. The esophagus is unremarkable. Visualized thyroid gland: There is a 3 mm hypodensity in the right lobe of the thyroid gland. It is too small for further characterization. No follow-up is recommended. Pleura: No pneumothorax. Heart: The heart is not dilated. Marked coronary artery calcification and/or stents are present. The RV to LV ratio is less than 1. No pericardial effusion. Aorta: Thoracic aorta non-dilated. No evidence of dissection. Atherosclerosis is present. Upper abdomen: There are stable renal cysts. No follow-up is recommended. Soft tissues: There is mild subcutaneous edema in the chest wall. Bones: Within normal limits for the patient's age.Postsurgical changes are seen in the right humeral head. IMPRESSION: 1. No evidence of pulmonary embolism, thoracic aortic dissection or aneurysm. 2. Bilateral pleural effusions and subjacent infiltrates which may represent atelectasis or pneumonia . Please correlate clinically. RADIATION DOSE DELIVERED: 528.43mGy.cm Total DLP DATA REPOSITORY: All CT scans at this facility are submitted to the National Radiology Data Registry (NRDR) Dose Index Registry (DIR) with the [employer] (ACR). RADIATION OPTIMIZATION: All CT scans at this facility use at least one of these dose optimization te chniques: automated exposure control; mA and/or kV adjustment per patient size (includes targeted exa ms where dose is matched to clinical indication); or iterative reconstruction.
--- NOTE | 2023-02-12 18:17 | W.POCUS ---
Pocus Exam Limited Vascular Exam DATE OF EXAM: 02/12/23 TIME OF EXAM: 18:19 PROVIDER THAT PERFORMED THE STUDY: Ryan Alvarado Vascular Exam: Left lower extremity REASON FOR EXAM: Concern for DVT left lower extremity, Left calf pain, Left lower extremity erythema and Left lower extremity pain VISUALIZED STRUCTURES: Left common femoral vein, Left popliteal vein, Left superficial femoral vein and Left greater saphenous vein PERTINENT FINDINGS/IMPRESSION: Compressible veins left leg and No apparent abnormalities Exam Complete
[2023-02-12] MEDS: Omnipaque 350 MG/ML 100 ML BTL IJ (18:49)
[2023-02-12] MEDS: Normal Saline - Diluent 50 ML VIAL IJ (18:50)
--- NOTE | 2023-02-12 19:10 | DI.VRAD_ITS ---
PROCEDURE INFORMATION: Exam: CTA Chest With Contrast Exam date and time: 02/12/2023 6:44 PM Age: 72 years old Clinical indication: Dyspnea and other: Hypoxia; Patient HX: Dyspnea, hypoxia TECHNIQUE: Imaging protocol: Computed tomographic angiography of the chest with contrast. Exam focused on the arteries. 3D rendering (Not supervised by radiologist): MIP and/or 3D reconstructed images were created by the technologist. Contrast material: OMNIPAQUE 350; Contrast volume: 100 ml; Contrast route: INTRAVENOUS (IV); COMPARISON: CR XR PORTABLE CHEST AP 02/12/2023 5:41 PM FINDINGS: Pulmonary arteries: Normal. No pulmonary emboli. Aorta: Unremarkable. No aortic aneurysm. No aortic dissection. Lungs: Partial compressive atelectasis of the dependent portions of both lower lobes. Mild focal consolidation in the right upper lobe. Lungs are otherwise clear. Pleural spaces: Small bilateral pleural effusions, greater on the right. Heart: Unremarkable. No cardiomegaly. No pericardial effusion. Lymph nodes: Unremarkable. No enlarged lymph nodes. Bones/joints: Moderate degenerative disc changes and anterior osteophyte formation throughout the thoracic spine. No vertebral body compression or acute fracture. Soft tissues: Unremarkable. IMPRESSION: 1. No evidence of pulmonary embolus 2. Small bilateral pleural effusions and dependent atelectasis. Dictated and Authenticated by: Dell Mcdonough MD. Ordering:[facility] Jenny Davis MD
--- NOTE | 2023-02-12 19:29 | W.POCUS ---
Pocus Exam Limited Thoracic Lung Exam DATE OF EXAM: 02/12/23 TIME OF EXAM: 19:04 PROVIDER THAT PERFORMED THE STUDY: Ryan Alvarado IS THIS A REPEAT EXAM DURING THIS ENCOUNTER: No REASON FOR EXAM: Hypoxia and Shortness ofBreath VISUALIZED STRUCTURES: right anterior, left anterior, right lateral, left lateral, right posterior, left posterior, right subcostal and left subcostal PERTINENT FINDINGS/IMPRESSION: B-lines/left side thoracis location: anterior, lateral and posterior, B-lines/right side thoracis location: anterior, lateral and posterior, Left pleural effusion, Right pleural effusion and Other (bibasilar atelectasis) impression: diffuse bilateral B line pattern in multiple jauregui consistent w/ interstitial edema; bilateral small pleural effusions w/ bilateral lower lobe atelectasis
--- NOTE | 2023-02-12 19:31 | W.POCUS ---
Pocus Exam Limited Cardiac Exam DATE OF EXAM: 02/12/23 TIME OF EXAM: 19:17 PROVIDER THAT PERFORMED THE STUDY: Ryan Alvarado REASON FOR EXAM: Dyspnea and Hypoxia VISUALIZED STRUCTURES: four chambers and IVC VIEW OBTAINED: Subxiphoid PERTINENT FINDINGS/IMPRESSION: Plethoric IVC; no IVC inspiratory collapsability, No pericardial effusion and No RV dysfunction INCIDENTAL FINDINGS: Limited echocardiogram from subxiphoid view was done to evaluate IVC and gross LV and RV function. No overt RV or LV dysfunction was seen from this view however further views including PSAX and apical 4 chamber and PLAX would be needed to rule out RWMA. However, IVC was visualized and there is dilated IVC w/ less than 50% inspiratory collapsability, suggestive of high right atrial filling pressures. Exam complete
[2023-02-12] MEDS: Rosuvastatin 20 MG TAB PO (19:32)
[2023-02-12] MEDS: Dofetilide 250 MCG CAP PO (19:33)
[2023-02-13] VITALS (29 sets, daily range): BP systolic 105–157; BP diastolic 42–91; PULSE 49–87; RESP 13–24; TEMP 36.8–38.1; O2SAT 93–97
--- NOTE | 2023-02-13 | DI.CT_ITS ---
Exam(s) CT HEAD WO EXAM: CT HEAD WO CLINICAL HISTORY: slowed speech, r/o CVA. TECHNIQUE: Imaging Protocol: Axial computed tomography images with coronal and sagittal reformatted images were created and reviewed COMPARISON: No exams were available for comparison FINDINGS: Ventricles and Extra axial spaces: Normal in size and morphology for the patient's age. Hemorrhage: None. Cerebral parenchyma: There is age-related cerebral atrophy. No acute territorial infarct is identifi ed. Midline shift: None. Brainstem/Cerebellum: Normal. Calvarium: Normal. Visualized Paranasal sinuses/Mastoids: Clear. Soft Tissues: Unremarkable. IMPRESSION: 1. No acute intracranial process. 2. An acute infarct may not be visualized in the 1st 24-48 hours. An MRI may be obtained for further evaluation if clinically appropriate. RADIATION DOSE DELIVERED: 723.66mGy.cm Total DLP DATA REPOSITORY: All CT scans at this facility are submitted to the National Radiology Data Registry (NRDR) Dose Index Registry (DIR) with the [employer] (ACR). RADIATION OPTIMIZATION: All CT scans at this facility use at least one of these dose optimization te chniques: automated exposure control; mA and/or kV adjustment per patient size (includes targeted exa ms where dose is matched to clinical indication); or iterative reconstruction.
[2023-02-13] MEDS: PIPERACILLIN/TAZO 3.375 GM in Normal Saline 50 ML IV (05:09)
[2023-02-13] MEDS: Ketorolac 30 MG/ML VIAL 15 MG IVP (05:35)
[2023-02-13 05:40] LABS: Lactate 1.7 mmol/L (0.6-1.4)
[2023-02-13] MEDS: Baclofen 10 MG TAB 5 MG PO (05:40)
[2023-02-13] MEDS: Levothyroxine 50 MCG TAB PO (05:43)
[2023-02-13 06:53] LABS: Abs Immature Grans 0.76 10^3/uL (0.0-0.06); Absolute Lymphocyte Count 2.36 10^3/uL (1.2-3.4); Basophils % 0.5; Eosinophils % 1.5; HCT 34.3 % (40.0-50.0); HGB 12.2 g/dL (13.5-17.5); Immature Grans % 3.8; Lymphocytes % 11.7; MCH 33.7 pg (27.0-33.0); MCHC 35.6 % (32.0-36.0); MCV 95 fL (80-95); MPV 12.5 fL (8.0-11.0); Monocytes % 7.1; Neutrophils % 75.4; Nucleated RBC 0.1 % (0.0-0.3); Platelet Count 205 10^3/uL (130-400); RBC 3.62 10^6/uL (4.36-5.78); RDW 15.5 % (11.8-14.1); RDW-SD 53.6 fL; WBC 20.17 10^3/uL (4.4-10.8)
[2023-02-13 06:55] LABS: Absolute Monocyte Count 1.43 10^3/uL (0.1-0.8); Absolute Neutrophil Count 15.21 10^3/uL (1.2-6.7)
[2023-02-13] MEDS: MORPHine 2 MG/ML SYR IVP (06:59)
[2023-02-13 07:20] LABS: Diff Comment Diff Reviewed; RBC Morphology Normal
[2023-02-13 07:24] LABS: ALT 271 U/L (16-63); AST 331 U/L (15-37); Albumin 2.2 g/dL (3.4-5.0); Alkaline Phosphatase 597 U/L (46-116); Anion Gap 8.4 mmol/L (3-11); BUN 40 mg/dL (7-18); Bilirubin, Total 1.5 mg/dL (0.2-1.0); C-Reactive Protein 18.93 mg/dL (0.0-0.3); CO2 28.6 mmol/L (21.0-32.0); CREATININE 1.3 mg/dL (0.70-1.30); Chloride 100 mmol/L (98-107); Creatine Kinase 52 U/L (39-308); Estimated GFR 58.37 (mL/min/1.73m2); Glucose 126 mg/dL (74-106); Potassium 3.3 mmol/L (3.5-5.1); Sodium 137 mmol/L (136-145); Total Protein 7.2 g/dL (6.4-8.2)
[2023-02-13 07:46] LABS: Lab Add On Test DONE
--- NOTE | 2023-02-13 07:53 | NUR.NOTE ---
Nursing Note: Hospitalist paged: Re [phone]: Family is anxious and concerned that pt is not like himself slurring words a little. AAX4 w/o complaints. Son says, he's laboring a little to speak.
--- NOTE | 2023-02-13 07:55 | PDOC.CMPRO ---
Date of service: 02/13/23 Time of Service: 07:55 Care Management Progress Note Progress Note Text Progress Note Text: S/O: Per [facility] Chemist consult; Medtronic insulin pump at home along with the Guardian 3 glucose sensor.? It is set up to deliver his 40 basal units of insulin and he programs for his CHO load at meals (1:5 ratio). Awaiting PT consult recommendations to inform discharge considerations. CM continues to follow. A: 72 year old male admitted to [facility] 02/08/23 for Cellulitis, Lactic acidosis, IDDM P: Per DE: anticipate Ted will transition back to his insulin pump/CGM upon discharge, also anticipate new orders for [facility] PT; awaiting recommendations, CM continues to follow.
[2023-02-13 07:59] LABS: Magnesium 2.2 mg/dL (1.8-2.4)
--- NOTE | 2023-02-13 08:00 | RT.EKG_ITS ---
APPROVED REPORT Exam: Resting ECG Reason for Exam: chest pain Patient Location: I HR:64 bpm ECG Measurements Heart Rate 64 AXIS ME [id number] P [id number] QRSd 109 QRS 12 QT 451 T -21 QTc 466 Conclusion Atrial fibrillation...? atrial activity Ventricular premature complex...V complex w/ short R-R interval Probable inferior infarct, age indeterminate...Q>35mS, T neg, II III aVF
--- NOTE | 2023-02-13 08:11 | W.PM.PROGNOT ---
Date of Service Date of service: 02/13/23 Time of Service: 08:11 Assessment and Plan Assessment and plan (1) Sepsis: Status: Acute Assessment and plan: Blood cultures are no growth to date from both 02/08/2023 and 02/09/2023. Patient is currently on Zosyn 3.375 g IV every 8 hours over an extended infusion along with Zyvox. Patient has been hemodynamically stable and off N.E. since 02/10. He was written to go to med/surg yesterday but in light of his positive troponin I and fleeting chest pains during the night I am going to keep him in ICU for today while we cycle his troponin. I think that the troponin leak is related to his sepsis. Echo was done earlier this admission and demonstrated normal LV size and function and wall thickness, LVEF 55% howver he has mildly dilated RV w/ preserved RV systolic function. He does have hx of prior AR and coronary stents x 4 done in [place]. (2) Cellulitis of left lower extremity: Status: Acute Assessment and plan: As above check MRI of LLE today; r/o osteo In light of slow response to Zosyn I am changing his antibiotics to Meropenem and continue the Zyvox. (3) Elevated troponin I level: Status: Acute Assessment and plan: likely demand ischemia however deserves close monitoring; will cycle his troponin I today; EKG was checked, he has atrial fibrillation w/ controlled rate of 64 bpm, rare PVC; no acute ST-T changes. May need to repeat his echo if his troponin levels rise to signficance. he is currently not experiencing any chest tightness or pain. (4) Acute kidney injury superimposed on chronic kidney disease: Status: Acute Assessment and plan: improving. BUN down to 40 and creatinine down to 1.3 (peak was 62 and 2.1), K is low 2nd to diuretics, receiving replacement continue to monitor particularly in light of need for diuretics (5) Acidosis, lactic: Status: Acute Assessment and plan: improving down to 1.7, source is his infection but also may have some contribution from his CHF (6) Type 1 diabetes mellitus on insulin therapy: Status: Chronic Assessment and plan: Glucose ranging 123 to 199. He is already on CHO (2: 5 gram) and sliding scale (resistant) and Lantus 35 units (7) Cor pulmonale: Status: Acute Assessment and plan: Echo report as noted above under sepsis discussion. He has known CAD and has stents. His troponin I elevation does not appear to be STEMI on his EKG but probably is type II demand ischemia; nevertheless will monitor his troponin I today. If they reach significant levels then will consult cardiology to discuss further management. He is already on aspirin 81 mg daily and Xarelto for his afib. I am reluctant to put him on Plavix especially if this is demand ischemia. Continue diuresesis, but I think that we can change from lasix drip to iv pushes of lasix. I have added spironolactone to his regimen (8) RUSSELL on CPAP: Status: Chronic Assessment and plan: Continue CPAP he has required additional oxygen to his CPAP at night per Jen from [facility]. He may need nocturnal oximetry study before dc home to see if he qualifies for home oxygen at night (9) Atrial fibrillation, persistent: Status: Chronic Assessment and plan: Cotninue Renally adjusted dofetilide and xarelto. Continue cardiac monitoring. (10) DVT prophylaxis: Status: Acute Assessment and plan: On therapeutic xarelto (11) Discharge planning issues: Status: Acute Assessment and plan: patient is full code, anticipate he will need home health w/ P.T. upon dc home. I will ask P.T. to evaluate him while he is here and begin exercises Subjective Subjective Interval history since last seen: Patient states that his breathing is much improved. He was on a lasix drip overnight at 5 mg/hr and diuresed a total of 4100 mL yesterday and another 2200 since midnight to 7 am this morning. He did not that during the roll tender around 3 am he had some sharp intermittent SSCP that lasted only a few seconds. His family is concerned that his speech is somewhat slowed. They say that it is very subtle. They could not give me an exact example. I did have the patient converse at length w/ me in front of the family including his , son and daughter. His speech seemed clear and coherent, not dysarthric. He denies any headache or visual changes. 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 Exam Narrative Exam Narrative: Patient is alert and oriented x3. Speech is clear and coherent not dysarthric. HEENT facial mimetic muscles are normal. Tongue is midline. Full extraocular motion intact. Gross visual jauregui intact Lungs are clear anteriorly posterior he has some faint bibasilar rales no rhonchi or wheezing Heart irregularly irregular controlled rate no appreciable murmur rub Abdomen obese soft and nontender normal bowel sounds Lower extremities edema his prove remarkably there is no pitting edema in the right leg or foot and only 1+ edema in the left foot and ankle pretibial surface. Area of erythema has receded on his left leg is now at the mid tibia whereas before it been just below the tibial tuberosity Neuro exam is grossly intact normal sensation of his face both arms hands both legs to light touch. Normal hand information systems planner strength normal arm strength normal plantarflexion and dorsiflexion of his feet and ankles. If he notices some slight discoordination with finger-nose testing on his right hand and he is right-handed. Objective Last Vital Signs Temp 37.5 C 02/12/23 16:11 Pulse 64 02/13/23 04:49 Resp 23 02/13/23 04:49 BP 124/42 L 02/13/23 00:01 Pulse Ox 95 02/13/23 04:49 Laboratory Results - last 24 hr 02/12/23 02/12/23 02/12/23 08:55 08:55 16:08 WBC RBC Hgb Hct MCV MCH MCHC RDW Plt Count MPV Immature Gran % Neutrophils % Lymphocytes % Monocytes % Eosinophils % Basophils % Nucleated RBC % Absolute Neutrophils Absolute Lymphocytes Absolute Monocytes Absolute Eosinophils Absolute Basophils RBC Morphology VBG pH 7.47 H VBG pCO2 37 L VBG pO2 57 VBG HCO3 27 VBG Total CO2 24 VBG O2 Saturation 91 VBG Base Excess 3 VBG Lactate 2.1 H Sodium Potassium 3.2 L Chloride Carbon Dioxide Anion Gap BUN Creatinine Est GFR (CKD-EPI 2020) Glucose Calcium Magnesium Total Bilirubin AST ALT Alkaline Phosphatase Creatine Kinase C-Reactive Protein Total Protein Albumin Procalcitonin Add-On Test Request 02/13/23 02/13/23 02/13/23 05:35 05:35 05:35 WBC 20.17 H RBC 3.62 L Hgb 12.2 L Hct 34.3 L MCV 95 MCH 33.7 H MCHC 35.6 RDW 15.5 H Plt Count 205 MPV 12.5 H Immature Gran % 3.8 Neutrophils % 75.4 Lymphocytes % 11.7 Monocytes % 7.1 Eosinophils % 1.5 Basophils % 0.5 Nucleated RBC % 0.1 Absolute Neutrophils 15.21 H Absolute Lymphocytes 2.36 Absolute Monocytes 1.43 H Absolute Eosinophils 0.30 Absolute Basophils 0.10 RBC Morphology Normal VBG pH VBG pCO2 VBG pO2 VBG HCO3 VBG Total CO2 VBG O2 Saturation VBG Base Excess VBG Lactate 1.7 H Sodium Cancelled Potassium Cancelled Chloride Cancelled Carbon Dioxide Cancelled Anion Gap Cancelled BUN Cancelled Creatinine Cancelled Est GFR (CKD-EPI 2020) Cancelled Glucose Cancelled Calcium Cancelled Magnesium Total Bilirubin Cancelled AST Cancelled ALT Cancelled Alkaline Phosphatase Cancelled Creatine Kinase Cancelled C-Reactive Protein Cancelled Total Protein Cancelled Albumin Cancelled Procalcitonin Add-On Test Request 02/13/23 02/13/23 02/13/23 06:55 06:55 06:55 WBC RBC Hgb Hct MCV MCH MCHC RDW Plt Count MPV Immature Gran % Neutrophils % Lymphocytes % Monocytes % Eosinophils % Basophils % Nucleated RBC % Absolute Neutrophils Absolute Lymphocytes Absolute Monocytes Absolute Eosinophils Absolute Basophils RBC Morphology VBG pH VBG pCO2 VBG pO2 VBG HCO3 VBG Total CO2 VBG O2 Saturation VBG Base Excess VBG Lactate Sodium 137 Potassium 3.3 L Chloride 100 Carbon Dioxide 28.6 Anion Gap 8.4 BUN 40 H Creatinine 1.3 Est GFR (CKD-EPI 2020) 58.37 Glucose 126 H Calcium 8.0 L Magnesium Total Bilirubin 1.5 H AST 331 H ALT 271 H Alkaline Phosphatase 597 H Creatine Kinase 52 C-Reactive Protein 18.93 H Total Protein 7.2 Albumin 2.2 L Procalcitonin 4.0 Add-On Test Request DONE 02/13/23 06:55 WBC RBC Hgb Hct MCV MCH MCHC RDW Plt Count MPV Immature Gran % Neutrophils % Lymphocytes % Monocytes % Eosinophils % Basophils % Nucleated RBC % Absolute Neutrophils Absolute Lymphocytes Absolute Monocytes Absolute Eosinophils Absolute Basophils RBC Morphology VBG pH VBG pCO2 VBG pO2 VBG HCO3 VBG Total CO2 VBG O2 Saturation VBG Base Excess VBG Lactate Sodium Potassium Chloride Carbon Dioxide Anion Gap BUN Creatinine Est GFR (CKD-EPI 2020) Glucose Calcium Magnesium 2.2 Total Bilirubin AST ALT Alkaline Phosphatase Creatine Kinase C-Reactive Protein Total Protein Albumin Procalcitonin Add-On Test Request Time Spent with Patient Time Spent with Patient: >50 minutes Time was spent: preparing to see the patient(eg.review tests), obtaining and/or reviewing separately otained hiistory, ordering medications,tests, procedures, referring, communicating with other health respiratory care assistant, indepentently interpreting results, counseling the patient and care coordination
[2023-02-13 08:25] LABS: Lab Add On Test DONE
[2023-02-13] MEDS: Aspirin E.C. 81 MG TABEC PO (08:26)
[2023-02-13] MEDS: Cholecalciferol (Vitamin D3) 1,000 UNIT TAB 2000 UNITS PO (08:26)
[2023-02-13] MEDS: Linezolid 600 MG TAB PO ×2 (08:27→19:44)
[2023-02-13] MEDS: Gabapentin 600 MG TAB PO ×3 (08:27→19:44)
[2023-02-13] MEDS: Acetaminophen 500 MG TAB 1000 MG PO ×3 (08:27→19:44)
[2023-02-13] MEDS: Dofetilide 250 MCG CAP PO ×2 (08:27→19:44)
[2023-02-13 08:46] LABS: NT-proBNP 4786 pg/mL (<300)
[2023-02-13 08:48] LABS: Troponin I 329 ng/L (<or=60)
[2023-02-13] MEDS: Potassium Chloride 10 MEQ CAPCR 20 MEQ PO ×4 (09:10→19:45)
[2023-02-13] MEDS: Spironolactone 25 MG TAB PO (09:10)
[2023-02-13] MEDS: Insulin Aspart 300 UNITS/3 ML PEN SC ×4 (09:14→21:53)
[2023-02-13] MEDS: Insulin Glargine 300 UNITS/3 ML PEN 50 UNITS SC (09:21)
[2023-02-13] MEDS: MEROPENEM 1 GM in Normal Saline 100 ML IVPB ×2 (10:45→18:13)
--- NOTE | 2023-02-13 11:06 | PT.INIE ---
Date of service: 02/13/23 Time of Service: 10:28 PT Notes Visit Reasons: Cellulitis, Lactic Acidosis, IDDM Physical Therapy Inpatient Initial Evaluation Date: 02/13/2023 Referring Doctor: Ryan Alvarado MD PT Orders: PT CONSULT: Extended stay weakness Precautions: Fall. Standard. Activity as tolerated. Patient Profile/Admitting Diagnosis: Ted is a 72-year-old male s/p pancreatectomy and splenectomy who presented to the ED on 02/08/2023 due to confusion and fever. Patient is admitted for management of cellulitis of left lower extremity, sepsis, elevated troponin level, acute kidney injury superimposed on CKD, lactic acidosis, cor pulmonale, and atrial fibrillation. 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 Benign hypertension CORONARY ARTERY DISEASE Diabetes mellitus Hyperlipidemia Paroxysmal atrial fibrillation Surgical History? EXCISION? (09/10/08) ununited fracture fragment tip of olecranon as well as bursa left elbow Fasciectomy, Palmar (09/10/08) NODULAR ON THE LEFT History of pancreatectomy Post-splenectomy Repair, Rotator Cuff (09/12/12) RIGHT Stent placement 2000, 2011 Social History/Home Situation: Lives with in a private home. Independent with all aspects of ADLs prior to admission. Son who lives in [facility] and daughter from [place] are both here providing assistance. Patient is the primary caregiver of who has dementia. Patient has had a history of stroke 2-1/2 years ago but has not been using any assistive device. Equipment Owned/DME: None Subjective: Patient reports that he has been independent with everything and has been the primary caregiver for his who has dementia. Son and daughter are temporarily here to provide needed assistance for him and his while he is on admission. Reports 3/10 pain on the left leg and foot while resting in bed, 5/10 pain sitting at edge of bed and 7/10 pain while doing short distance in room ambulation with PT. Denies lightheadedness, chest pain, and headache throughout session. Objective: General Observation: Resting in bed. Telemetry monitoring in place. IV access through left UE. Erythema and swelling to the left UE and foot. Mental Status: Alert and oriented as to person, place, time, and purpose. Able to pay attention, focus, and respond appropriately. Pain: As above Vital Signs: HR ranged from the low 60s to the high 80s bpm throughout session; oxygen saturation remained above 90% throughout ROM: Right Upper Extremity: Shoulder Flexion WFL. Shoulder abduction WFL. Elbow flexion WFL. Wrist flexion WFL. Functional opening and closing of hand WFL. Left Upper Extremity: Shoulder Flexion WFL. Shoulder abduction WFL. Elbow flexion WFL. Wrist flexion WFL. Functional opening and closing of hand WFL. Right Lower Extremity: Hip flexion WFL. Hip abduction WFL. Knee flexion WFL. Ankle dorsiflexion WFL. Ankle plantarflexion WFL. Left Lower Extremity: Hip flexion WFL. Hip abduction WFL. Knee flexion WFL. Ankle dorsiflexion to neutral only. Ankle plantarflexion WFL. Strength: Right Upper Extremity: Shoulder flexors 4/5. Shoulder abductors 4/5. Elbow flexors 5/5. Elbow extensors 5/5. Cryogenic Transport Driver strong. Left Upper Extremity: Shoulder flexors 4/5. Shoulder abductors 4/5. Elbow flexors 5/5. Elbow extensors 5/5. Cryogenic Transport Driver strong. Right Lower Extremity: Hip flexors 4/5. Hip abductors 4/5. Knee flexors 5/5. Knee extensors 5/5. Ankle dorsiflexors 4/5. Ankle plantarflexors 4/5. Left Lower Extremity: Hip flexors 4/5. Hip abductors 4/5. Knee flexors 3/5. Knee extensors 3/5. Ankle dorsiflexors 3-/5. Ankle plantarflexors 3/5. Bed Mobility/Transfers: Supine to sit stand by assist Sit to supine contact guard assist Sit to stand contact guard assist with minimal cues for hand placement Stand to sit contact guard assist with minimal cues for hand placement Bed to reclining chair contact guard assist with minimal cues for hand placement Reclining chair to bed contact guard assist with minimal cues for hand placement Gait: Instructed patient with level surface ambulation of 5 steps + 15 steps + 5 steps requiring stand by assist assist. Yaneth decreased. pain report in left leg at 7/10 that subsided back to 3/10 with rest back in bed. No SOB. HR in the mid 80s bom during walk, oxygen saturation above 90% on RA. Pain in L leg at 7/10. Nurse Fito pringle. Balance: Static Sitting: Normal Dynamic Sitting: Normal Static Standing: Fair Dynamic Standing: Fair Special Tests: Mobility Limitations Standardized Measure [facility] AM-PAC 6 clicks Basic Mobility Inpatient Short Form: Raw Score: 20 CMS Score: 36% deficit Informed Consent/Education: Patient was instructed in purpose of PT consult and plan of care. Agreeable to proceed with established PT POC to achieve personal goals. ASSESSMENT: Ted demonstrates functional mobility decline requiring the need to use a front-wheeled walker for short distance/and room ambulation due to decreased activity tolerance and pain in the left leg and foot at 7/10. Prior to admission patient is independent with all mobility ADLs without the need for an assistive device. He may require short-term SNF placement to achieve independent mobility level as he is the primary caregiver for his at home. Patient presents with clinical signs and symptoms consistent with current/admitting diagnoses that have resulted to mobility limitations, gait instability, generalized weakness, and overall ADL decline as demonstrated by the following impairment level findings: 1. Decreased strength to L LE major muscle groups 2. Impaired sitting/standing balance 3. Impaired activity tolerance 4. Limitation of joint range of motion in L ankle 5. erythema and swelling in L leg and foot Impairments are contributing to the following functional limitations: 1. Decline in bed mobility skills 2. Decline in transfer skills 3. Difficulty with ambulation without assistive device and physical assistance 4. Increased completion time for mobility ADL performance 5. Increased risk for falls 6. Difficulty with managing steps alone safely Patient is assessed as a 64464 moderate complexity based on the following: History: 71-year-old male with past medical history as indicated above Examination: Demonstrable impairment in strength, balance, and mobility level with underlying impairments and functional limitations as exhibited above as well as deficit score of 36% utilizing the [facility] Mobility Inpatient Short Form Presentation: Evolving Decision Makin moderate complexity Goals: Goals X1 week 1. Supine-Sit independent 2. Sit-Supine independent 3. Sit-Stand independent 4. Stand-Sit independent with no AD 5. Bed-Chair independent with no AD 6. Chair-Bed independent with no AD 7. Independent gait on level surface with use of no AD for at least 300 feet without report of pain nor dyspnea 8. Independent stair negotiation while holding onto B rails for at least 5 steps without report of pain nor dyspnea 9. Independent with home exercise program 10. Good static and dynamic standing balance/tolerance Plan of Care/Treatment Plan: 1-2x/day, 7 days/week x 1 week. Plan of care has been reviewed with the PUBLIC HEALTH AIDE providing the service under Physical Therapy direction. Initiate Physical Therapy intervention for pain management as needed, strengthening, bed mobility, transfers, gait, stairs, balance training, and use of assistive device. DISCHARGE RECOMMENDATIONS: [] Home with no services [] [] Home with services [specify] [] Home with outpatient PT [] [] SNF for continued rehabilitation [] [] [facility] [] [] SNF versus LTC based on ability to participate and progress [] [X] PT vs SNF placement based on progress towards goals and availability of caregivers at home for with dementia TREATMENT CODE/TIME: 81064 x 20 minutes, 05834 x 12 minutes beginning at 10:28 AM. Thank you for the opportunity to participate in the care of this patient. Laura Carlisle PT, DPT, CLT [facility] [place], [place]
[2023-02-13] MEDS: Gadoterate meglumine 20 ML VIAL IVP (11:57)
[2023-02-13] MEDS: Normal Saline Flush 10 ML SYR IVP ×2 (11:57→15:51)
--- NOTE | 2023-02-13 12:35 | DI.MRI_ITS ---
Exam(s) MR LOWER EXTREMITY LT WO/W EXAM: MR LOWER EXTREMITY LT WO/W CLINICAL HISTORY: cellulitis TECHNIQUE: Multiplanar multisequence MRI of the left lower extremity was performed. CONTRAST MATERIAL: IV Contrast: 15 ML of Dotarem contrast administered. COMPARISON: CR,XR XR TIB/FIB LT from 02/08/[address] LOWER EXTREMITY LT W from 02/09/2023 FINDINGS: There is edema in the soft tissues throughout the lower leg. No focal fluid collection is seen to umana ggest an abscess. The muscles in the calf show normal signal and size. There is normal marrow signal present. No findings to suggest fracture or osteomyelitis are present. The visualized tendons and tendon sheaths are unremarkable. The ankle is unremarkable. There is some fluid superficial to the posterior medial muscles. It shows no enhancement on the post contrast images to suggest an abscess. The underlying muscle has a normal appearance. Following contrast administration no abnormal enhancement is identified. IMPRESSION: 1. Cellulitis of the lower extremity. No evidence of a focal fluid collection to suggest an abscess. 2. No findings to suggest osteomyelitis. 3. Normal signal and size of the musculotendinous structures. DATA REPOSITORY:
[2023-02-13 13:50] LABS: Troponin I 296 ng/L (<or=60)
[2023-02-13] MEDS: Furosemide 40 MG/4 ML VIAL 80 MG IVP (15:51)
[2023-02-13] MEDS: Rivaroxaban 10 MG TABLET 20 MG PO (16:54)
[2023-02-13 17:50] LABS: Troponin I 307 ng/L (<or=60)
--- NOTE | 2023-02-13 19:31 | NUR.NOTE ---
1857-pt states chest pain only over left side of chest. No nausea, sob, diaphoresis, radiation, shortness of breath. This nurse went into [facility] to look at a computer to see what meds could be given and went back to the room to find that the pt stated the pain was already gone. 1902- Dr. Santiago called and this was reported to him. Asked if pt could be taken for a walk and this was refused. Also reported that he had cp earlier in the day with an ekg that was done and another was not ordered.
[2023-02-13] MEDS: Rosuvastatin 20 MG TAB PO (19:45)
[2023-02-13 22:39] LABS: Troponin I 226 ng/L (<or=60)
--- NOTE | 2023-02-13 23:32 | NUR.NOTE ---
2146-converted to sinus rhythm at this time
[2023-02-14] VITALS (30 sets, daily range): BP systolic 137–169; BP diastolic 50–66; PULSE 57–82; RESP 16–26; TEMP 36.6–37.7; O2SAT 91–97
--- NOTE | 2023-02-14 | DI.US_ITS ---
Exam(s) US ABDOMEN EXAM: US ABDOMEN CLINICAL HISTORY: elevated transaminases TECHNIQUE: Ultrasound of complete upper abdomen performed using standard protocol. COMPARISON: US POCUS EXAM from 02/12/[address] CHEST PE CTA from 02/12/2023 FINDINGS: There is no ascites evident. LIVER: There are no hepatic lesions evident nor obvious dilatation of intrahepatic ducts. GALLBLADDER/BILIARY: There are no shadowing gallstones. However, there is a 4 millimeter polyp note d. Gallbladder wall is not edematous. The common hepatic duct isnot dilated, measuring 6mm at the level of esthela hepatis. PANCREAS: Not seen/apparently surgically absent SPLEEN: Surgically absent KIDNEYS:Kidneys exhibit normal size with no evidence of solid mass, calculus, nor hydronephrosis. No cortical cysts evident. ABDOMINAL AORTA: Mostly obscured by overlying bowel gas. IVC: Normal diameter where visualized. IMPRESSION: 1. There is a 4 millimeter polyp in the gallbladder. No shadowing gallstones nor gallbladder wall e rhianna. No pericholecystic fluid. CBD diameter is upper normal. 2. Spleen is surgically absent. Apparently the majority of the pancreas is also predominately surgi jovi absent. It was difficult to adequately visualize the pancreatic head due to overlying bowel ga s. Pancreatic head was only partially included on the lower most images of the chest CT scan 023. The visualized pancreatic head and part of the uncinate process on that study appear unremarkab le but are not completely included. If clinically indicated further study with CT scan can be perfor med. 3. There is no ascites. DATA REPOSITORY:
[2023-02-14] MEDS: Pantoprazole 40 MG VIAL IVP ×2 (00:15→08:25)
[2023-02-14] MEDS: MORPHine 2 MG/ML SYR IVP (00:40)
[2023-02-14] MEDS: Normal Saline Flush 10 ML SYR IVP ×2 (00:41→08:26)
[2023-02-14] MEDS: MEROPENEM 1 GM in Normal Saline 100 ML IVPB ×3 (04:05→17:53)
[2023-02-14 05:29] LABS: Abs Immature Grans 1.18 10^3/uL (0.0-0.06); Basophils % 0.7; Eosinophils % 3.9; HCT 31.3 % (40.0-50.0); HGB 10.9 g/dL (13.5-17.5); Immature Grans % 6.6; Lactate 1.5 mmol/L (0.6-1.4); Lymphocytes % 16.1; MCH 32.8 pg (27.0-33.0); MCHC 34.8 % (32.0-36.0); MCV 94 fL (80-95); MPV 11.9 fL (8.0-11.0); Monocytes % 7.7; Nucleated RBC 0.1 % (0.0-0.3); Platelet Count 252 10^3/uL (130-400); RBC 3.32 10^6/uL (4.36-5.78); RDW 15.3 % (11.8-14.1); RDW-SD 53.1 fL; WBC 17.86 10^3/uL (4.4-10.8)
[2023-02-14 05:30] LABS: Absolute Basophil Count 0.13 10^3/uL (0.0-0.2); Absolute Lymphocyte Count 2.88 10^3/uL (1.2-3.4); Absolute Monocyte Count 1.38 10^3/uL (0.1-0.8); Absolute Neutrophil Count 11.61 10^3/uL (1.2-6.7)
[2023-02-14 05:45] LABS: C-Reactive Protein 18.86 mg/dL (0.0-0.3)
[2023-02-14] MEDS: Ketorolac 30 MG/ML VIAL 15 MG IVP (05:47)
[2023-02-14] MEDS: Levothyroxine 50 MCG TAB PO (05:47)
[2023-02-14 05:49] LABS: ALT 235 U/L (16-63); AST 238 U/L (15-37); Albumin 1.9 g/dL (3.4-5.0); Alkaline Phosphatase 601 U/L (46-116); Anion Gap 5.8 mmol/L (3-11); BUN 36 mg/dL (7-18); CO2 30.2 mmol/L (21.0-32.0); CREATININE 1.3 mg/dL (0.70-1.30); Calcium 7.9 mg/dL (8.5-10.1); Chloride 100 mmol/L (98-107); Estimated GFR 58.37 (mL/min/1.73m2); Glucose 168 mg/dL (74-106); Potassium 4.2 mmol/L (3.5-5.1); Sodium 136 mmol/L (136-145); Total Protein 6.8 g/dL (6.4-8.2)
[2023-02-14 05:51] LABS: Troponin I 198 ng/L (<or=60)
[2023-02-14 06:11] LABS: Diff Comment Agrees w/ Instrument; Poikilocytes 1+
[2023-02-14 07:51] LABS: Lab Add On Test DONE
[2023-02-14 08:03] LABS: Bilirubin, Direct 0.5 mg/dL (0.0-0.2); GGT 664 U/L (15-85); LDH 363 U/L (85-227)
[2023-02-14] MEDS: Furosemide 40 MG/4 ML VIAL 80 MG IVP (08:23)
[2023-02-14] MEDS: Cholecalciferol (Vitamin D3) 1,000 UNIT TAB 2000 UNITS PO (08:31)
[2023-02-14] MEDS: Dofetilide 250 MCG CAP PO ×2 (08:31→21:41)
[2023-02-14] MEDS: Acetaminophen 500 MG TAB 1000 MG PO (08:32)
[2023-02-14] MEDS: Spironolactone 25 MG TAB PO (08:33)
[2023-02-14] MEDS: Isosorbide Mononitrate 30 MG TABCR PO (08:34)
[2023-02-14] MEDS: Gabapentin 600 MG TAB PO ×3 (08:34→21:41)
[2023-02-14] MEDS: amLODIPine 5 MG TAB PO (08:35)
[2023-02-14] MEDS: Aspirin E.C. 81 MG TABEC PO (08:35)
--- NOTE | 2023-02-14 08:37 | W.PM.PROGNOT ---
Date of Service Date of service: 02/14/23 Time of Service: 08:38 Assessment and Plan Assessment and plan (1) Sepsis: Status: Acute Assessment and plan: Blood cultures are no growth to date from both 02/08/2023 and 02/09/2023. Patient is on Zyvox and Meropenem ( I switched him from Zosyn yesterday to Meropenem). Blood cultures no growth to date. MRI of his left leg was negative for osteomyelitis ( which I conveyed to him and the family last night). he was treated w/ Zosyn and Vancomycin from 02/09 to 02.11 and Zosyn and Zyvox 02/12 to 02/13 and Meropenem and Zyvox 02/13 to present. I will continue this regimen as he seems to finally be making significant improvements in his infection i.e. decreasing WBC, CRP, procalcitonin, redness and edema. He has been hemodynamically stable latelye although initially he was on vasopressors including Norepinephrine for a few hours on 02/10/23. Cardiogenic shock was one of his listed diagnoses but this is incorrect. he clearly had septic shock. Echo 02/09 shows his LV function to be preserved although he has mild RV dilatation and sustained a mild troponin leak. Initially his troponin I was normal on 02/09 no further troponin were checked until I ordered them on the morning of 02/13 which I was responding to reports of his fleeting sharp chest pains during the night of 02/12 to 02/13. I think if we had checked his troponin further on 02/09 to 02/11 we would have found further elevations. I am resuming his norvasc at lower dose and adding Imdur as he does have ischemic HD w/ prior 4 coronary stents. He should have further stress MPI for risk stratification once he has recovered from his infection. (2) Cellulitis of left lower extremity: Status: Acute Assessment and plan: continue Meropenem and Zyvox. check MRSA screen (3) Elevated troponin I level: Status: Acute Assessment and plan: I still fee that this represents demand ischemia secondary to sepsis and I am gladd that his troponins are declining. I do not know whether his intermittent sharp fleeting chest pains represent angina or GERD but he has been started on protonix although was given iv protonix which I will switch to oral (he does not need more iv fluids given his CHF). I have started him on Imdur 30 mg daily and restarted his norvasc but reduced to 5 mg daily. (4) Acute kidney injury superimposed on chronic kidney disease: Status: Acute Assessment and plan: continues to improve w/ improvement in his CHF. BUN and creatinine down to 36 and 1.3 from peak of 62 and 2.1); continue to monitor while getting diuretics (5) Acidosis, lactic: Status: Acute Assessment and plan: lactated down to 1.5. Likely was secondary to sepsis, hepatic congestion, CHF (6) Type 1 diabetes mellitus on insulin therapy: Status: Chronic Assessment and plan: Glucose [id number] to 169. He is already on CHO (2: 5 gram) and sliding scale (resistant) and Lantus 35 units. Now that he is recovering from his sepsis/cellulitis, I think that we can back off his coverage. I will reduce his sliding scale to moderate. (7) Cor pulmonale: Status: Acute Assessment and plan: Patient has HFPEF but evidence of right heart failure, probably chronic from his RUSSELL. continue diuresis. I added spironolactone yesterday, I will change iv lasix to oral. At home he was on lasix 80 mg once per day. I will increase his dose to 80 mg bid and adjust his spironolactone. He should also be on Empagliflozin prior to discharge home (both for his CKD and for his CHF, as well as DM) (8) RUSSELL on CPAP: Status: Chronic Assessment and plan: Continue CPAP he has required additional oxygen to his CPAP at night per Jen from [facility]. He may need nocturnal oximetry study before dc home to see if he qualifies for home oxygen at night (9) Atrial fibrillation, persistent: Status: Chronic Assessment and plan: Now in SR. will check EKG. continue home dose of Tikoxyn and Xarelto (10) DVT prophylaxis: Status: Acute Assessment and plan: On therapeutic xarelto (11) Discharge planning issues: Status: Acute Assessment and plan: patient is full code, anticipate he will need home health w/ P.T. upon dc home. I will ask P.T. to evaluate him while he is here and begin exercises. Patient can be transferred to med/surg on telemetry Subjective Subjective Interval history since last seen: Patient is feeling markedly better still has pain in his left leg but it is improving the edema has gone down remarkably. His right leg is no longer edematous and he is down to a trace to 1+ edema in his left leg. His inflammatory markers are improving white count is down to 17,800 from a peak of 43,000. CRP remains elevated at 18 but down from a peak of greater than 25. Procalcitonin was not done yesterday as it was just done yesterday. Even that was down to 4 from a peak of 16. I did inform the patient's family he does have an elevation of his liver enzymes probably related to passive congestion from his heart failure. His AST is elevated at 238, ALT 235, alkaline phosphatase 601. Initially I was concerned it may have been related to the Zyvox however his AST was starting to rise as well as his alkaline phosphatase on 02/11/2023 which preceded the Zyvox. His blood lactate is down to 1.5. Patient did have some intermittent sharp fleeting chest pains last night around 7:00 and again this morning. He was started on Protonix last night. He is troponins are finally declining and are down to 198 this morning. Explained to the family and the patient I still think that her troponin leak was secondary to sepsis. The LFT elevation I think is likely due to passive hepatic congestion. We will continue to diurese him but switch him from IV Lasix to oral Lasix and continue with spironolactone. I am adding Imdur and resuming his Norvasc this will help with anti-ischemic effect. He is medically stable and can be transferred out of the intensive care unit to the medical/surgical floor on telemetry. Overnight his rhythm converted to sinus rhythm. Patient is back on his usual dose of Tikosyn to 250 mcg every 12 hours which probably helped contribute to his conversion to sinus rhythm. Exam Narrative Exam Narrative: Abdiel is alert oriented x3 no acute distress able to talk in complete paragraphs without dyspnea. Currently denies any chest pain or pressure but had some earlier this morning. We will recheck an EKG. 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) Extremities: no edema of his right foot/leg; 2+ edema of his left foot and ankle but only trace to 1+ over the left tibia; redness is receding; pulses present by doppler in left foot (difficult to palpate from the edema) right foot w/ palpable pulses Objective Last Vital Signs Temp 37.1 C 02/14/23 04:11 Pulse 71 02/14/23 06:00 Resp 25 H 02/14/23 06:00 BP 163/59 H 02/14/23 06:00 Pulse Ox 97 02/14/23 08:31 Laboratory Results - last 24 hr 02/13/23 02/13/23 02/13/23 06:55 13:15 17:12 WBC RBC Hgb Hct MCV MCH MCHC RDW Plt Count MPV Immature Gran % Neutrophils % Lymphocytes % Monocytes % Eosinophils % Basophils % Nucleated RBC % Absolute Neutrophils Absolute Lymphocytes Absolute Monocytes Absolute Eosinophils Absolute Basophils RBC Morphology Poikilocytosis VBG Lactate Sodium Potassium Chloride Carbon Dioxide Anion Gap BUN Creatinine Est GFR (CKD-EPI 2020) Glucose Calcium Magnesium Total Bilirubin Conjugated Bilirubin GGT AST ALT Alkaline Phosphatase Lactate Dehydrogenase Troponin I 329 H* 296 H* 307 H* C-Reactive Protein NT-Pro-B Natriuret Pep 4786 H Total Protein Albumin Add-On Test Request 02/13/23 02/14/23 02/14/23 22:01 05:23 05:23 WBC RBC Hgb Hct MCV MCH MCHC RDW Plt Count MPV Immature Gran % Neutrophils % Lymphocytes % Monocytes % Eosinophils % Basophils % Nucleated RBC % Absolute Neutrophils Absolute Lymphocytes Absolute Monocytes Absolute Eosinophils Absolute Basophils RBC Morphology Poikilocytosis VBG Lactate 1.5 H Sodium Potassium Chloride Carbon Dioxide Anion Gap BUN Creatinine Est GFR (CKD-EPI 2020) Glucose Calcium Magnesium 2.0 Total Bilirubin Conjugated Bilirubin GGT AST ALT Alkaline Phosphatase Lactate Dehydrogenase Troponin I 226 H* C-Reactive Protein 18.86 H NT-Pro-B Natriuret Pep Total Protein Albumin Add-On Test Request 02/14/23 02/14/23 02/14/23 05:23 05:23 05:23 WBC 17.86 H RBC 3.32 L Hgb 10.9 L Hct 31.3 L MCV 94 MCH 32.8 MCHC 34.8 RDW 15.3 H Plt Count 252 MPV 11.9 H Immature Gran % 6.6 Neutrophils % 65.0 Lymphocytes % 16.1 Monocytes % 7.7 Eosinophils % 3.9 Basophils % 0.7 Nucleated RBC % 0.1 Absolute Neutrophils 11.61 H Absolute Lymphocytes 2.88 Absolute Monocytes 1.38 H Absolute Eosinophils 0.70 Absolute Basophils 0.13 RBC Morphology See Below Poikilocytosis 1+ VBG Lactate Sodium 136 Potassium 4.2 Chloride 100 Carbon Dioxide 30.2 Anion Gap 5.8 BUN 36 H Creatinine 1.3 Est GFR (CKD-EPI 2020) 58.37 Glucose 168 H Calcium 7.9 L Magnesium Total Bilirubin 1.0 Conjugated Bilirubin GGT AST 238 H ALT 235 H Alkaline Phosphatase 601 H Lactate Dehydrogenase Troponin I 198 H* C-Reactive Protein NT-Pro-B Natriuret Pep Total Protein 6.8 Albumin 1.9 L Add-On Test Request DONE 02/14/23 05:23 WBC RBC Hgb Hct MCV MCH MCHC RDW Plt Count MPV Immature Gran % Neutrophils % Lymphocytes % Monocytes % Eosinophils % Basophils % Nucleated RBC % Absolute Neutrophils Absolute Lymphocytes Absolute Monocytes Absolute Eosinophils Absolute Basophils RBC Morphology Poikilocytosis VBG Lactate Sodium Potassium Chloride Carbon Dioxide Anion Gap BUN Creatinine Est GFR (CKD-EPI 2020) Glucose Calcium Magnesium Total Bilirubin Conjugated Bilirubin 0.5 H GGT 664 H AST ALT Alkaline Phosphatase Lactate Dehydrogenase 363 H Troponin I C-Reactive Protein NT-Pro-B Natriuret Pep Total Protein Albumin Add-On Test Request Time Spent with Patient Time Spent with Patient: >50 minutes Time was spent: preparing to see the patient(eg.review tests), ordering medications,tests, procedures, referring, communicating with other health wound care center consultant, indepentently interpreting results, counseling the patient (and family including son and daughter) and care coordination
[2023-02-14] MEDS: Insulin Glargine 300 UNITS/3 ML PEN 50 UNITS SC (09:13)
[2023-02-14] MEDS: Normal Saline 500 ML IV (10:06)
[2023-02-14] MEDS: Insulin Aspart 300 UNITS/3 ML PEN SC ×6 (10:39→21:43)
--- NOTE | 2023-02-14 11:22 | PDOC.CMPRO ---
Date of service: 02/14/23 Time of Service: 11:22 Care Management Progress Note Progress Note Text Progress Note Text: S/O: Per MD, Ted continues to make gains and will likely move out of the ICU to M/S today, continue to await culture senstitivities, do anticipate a switch from IV ABX to oral. Continue to work with PT; recommendations currently home health PT-vs-SNF dependent on progress mobility during this admission. LUIS spoke with Radha of PT later in the day, she reports Ted is doing well with PT and walked 350ft with a FWW. CM met with Ted, his , son and daughter. Ted and his are currently residing at [facility] in [place]; where they stay through the summer months, however their primary residence is [place] and Ted's primary care is through [facility]. The goal for Ted and his family is upon discharge, for Ted to be physically and medically ready to fly back to [place] and connect to health care services for post discharge needs in his own community. CM continues to follow. A: 72 year old male admitted to [facility] 02/08/23 for Cellulitis, Lactic acidosis, IDDM P: Awaiting culture sensitivities; DE continues to follow as well. Planning for Ted to be able to fly home upon discharge and follow up with community based services from his primary residence. CM continues to follow.
--- NOTE | 2023-02-14 12:00 | RT.EKG_ITS ---
APPROVED REPORT Exam: Resting ECG Reason for Exam: pt converted to sinus rhythm. Patient Location: I HR:67 bpm ECG Measurements Heart Rate 67 AXIS AZ 175 P -19 QRSd 101 QRS 16 QT 483 T -14 QTc 510 Conclusion Sinus rhythm...normal P axis, V-rate 50- 99 Prolonged QT interval...QTc >500mS
--- NOTE | 2023-02-14 13:55 | PT.INTREAT ---
Date of service: 02/14/23 Time of Service: 11:46 PT Notes Visit Reasons: Cellulitis, Lactic Acidosis, IDDM Inpatient Physical Therapy Treatment Note [facility] Date: 02/14/23 PRECAUTIONS: Fall, standard, activity as tolerated. SUBJECTIVE: Patient sitting up in chair, 2 family members present, agreeable to therapy. OBJECTIVE: ? PAIN: Yes in affected leg, 5/10 at rest, 7/10 midway through ambulation, 8/10 once back in room. VITALS: closely monitored via telemetry by nursing staff. ??? Gait Training ([id number]): Direct one-on-one instruction and skilled instruction in: [x] employing an assistive device [x] movement sequencing [x] turning and movement with proper form [x] Patient education regarding pacing and breathing techniques to maximize activity tolerance? GAIT? Assistive Device: FWW ? Weight bearing: full Assist: CGA, wheelchair follow which proves an overabundance of caution.? Distance:? 350 feet ? Deviation: slightly antalgic gait pattern which improves as ambulation progresses. Patient comments that it feels like it's loosening up. ?STAIRS: Ascends and descends 3 four inch steps and 2 six inch steps with bilateral railings, reciprocal gait pattern, contact guard assist. ? ASSESSMENT:? Patient tolerates therapy well. Family is well pleased with his progress. PLAN: Continue global strengthening per plan of care until patient is medically cleared for discharge. TREATMENT CODE/TIME: 04473 Gait 23 minutes beginning at 11:46
--- NOTE | 2023-02-14 15:20 | PT.INTREAT ---
PT Notes Visit Reasons: Cellulitis, Lactic Acidosis, IDDM Inpatient Physical Therapy Treatment Note [facility] Date: 02/14/2023 PRECAUTIONS: Fall. Standard. Activity as tolerated. SUBJECTIVE: Pt reports that the ankle pain has been improving, 2/10 when weight bearing not as pain ful as before. OBJECTIVE: ? PAIN: VITALS: Closely monitored by nursing ? Therapeutic Activities 17848 x1: Direct one-on-one instruction in dynamic activities to improve functional performance.? BED MOBILITY/TRANSFERS? Rolling L/R: [Supervision] Supine-sit: [Supervision]? Sit-supine: [Supervision] ? Sit-stand: [SBA]? Stand-sit: [Supervision] ? Bed-Chair: [SBA] ? Chair-bed: [SBA] Provided skilled cues and instruction on performance and technique throughout. Gait Training 20114 x1: Direct one-on-one instruction and skilled instruction in: [x] employing an assistive device [x] modified weight-bearing status [x] movement sequencing [x] turning and movement with proper form [x] Provided verbal cues for equipment management and technique [x] Provided instruction in gait pattern [x] Patient education regarding pacing and breathing techniques to maximize activity tolerance? GAIT? Assistive Device: [FWW]? Weight bearing: [WBAT] Assist: [SBA] ? Distance:? [300'] ? Deviation: [low step height] ? STAIRS:[6x back and forth] ?[id number], [id number] ? ASSESSMENT:? Pt tolerated activity well, no complaint post session. pt stayed seated on the edge of bed per pt request. PLAN: Will Continue with pain management as needed, strengthening, bed mobility, transfers, gait, stairs, balance training, and use of assistive device. TREATMENT CODE/TIME: [59964 x1 49042 x1] 3:00-3:25pm
[2023-02-14] MEDS: Furosemide 80 MG TAB PO (16:47)
[2023-02-14] MEDS: Rivaroxaban 10 MG TABLET 20 MG PO (16:47)
[2023-02-14] MEDS: Linezolid 600 MG TAB PO (21:41)
[2023-02-15] VITALS (9 sets, daily range): BP systolic 145–172; BP diastolic 61–73; PULSE 56–95; RESP 16–18; TEMP 36.1–37.7; O2SAT 94–97
--- NOTE | 2023-02-15 | DI.MRI_ITS ---
Exam(s) MR ABDOMEN WO EXAM: MR ABDOMEN WO CLINICAL HISTORY: dialted common bile duct TECHNIQUE: Multiplanar multisequence MRI of the Abdomen was performed. COMPARISON: CT CT ABDOMEN PELVIS WO/W from 01/17/[address] CHEST PE CTA from 02/12/2023 US US ABDOMEN from 02/14/2023 FINDINGS: Liver: Unremarkable. Pancreas: The pancreatic neck, body and talar absent. The head and uncinate are unremarkable. Gallbladder and Bile Ducts: The gallbladder is unremarkable. There is no biliary ductal dilatation. Adrenals: Unremarkable. Kidneys: There are bilateral simple renal cysts. No follow-up is recommended. Spleen: The patient appears have had a prior splenectomy. There are 2 splenules in the left upper qu adrant which appears stable. Bowel: Unremarkable. Aorta: Unremarkable. Soft Tissues: Unremarkable. Bone: Unremarkable. Lymph Nodes: Small lymph nodes are seen in the left para aortic region. The largest has a short axis diameter of 8 mm. Lung bases: Small right pleural effusion. There may also be a tiny left pleural effusion. IMPRESSION: 1. No evidence of biliary ductal dilatation. 2. Status post partial pancreatectomy and splenectomy. 3. Small right pleural effusion and possible tiny left pleural effusion. DATA REPOSITORY:
[2023-02-15] MEDS: Normal Saline Flush 10 ML SYR IVP ×2 (02:03→17:34)
[2023-02-15] MEDS: MEROPENEM 1 GM in Normal Saline 100 ML IVPB ×3 (02:03→17:33)
[2023-02-15] MEDS: Levothyroxine 50 MCG TAB PO (05:10)
[2023-02-15] MEDS: oxyCODONE 5 MG TAB PO ×2 (05:10→12:18)
[2023-02-15 06:41] LABS: Abs Immature Grans 1.34 10^3/uL (0.0-0.06); Absolute Basophil Count 0.12 10^3/uL (0.0-0.2); Absolute Eosinophil Count 0.61 10^3/uL (0.0-0.7); Absolute Lymphocyte Count 3.46 10^3/uL (1.2-3.4); Absolute Monocyte Count 1.61 10^3/uL (0.1-0.8); Basophils % 0.7; Eosinophils % 3.4; HGB 10.7 g/dL (13.5-17.5); Immature Grans % 7.5; Lymphocytes % 19.4; MCHC 35.7 % (32.0-36.0); MCV 93 fL (80-95); MPV 11.7 fL (8.0-11.0); Nucleated RBC 0.1 % (0.0-0.3); Platelet Count 332 10^3/uL (130-400); RBC 3.24 10^6/uL (4.36-5.78); RDW 15.5 % (11.8-14.1); RDW-SD 53.1 fL; WBC 17.84 10^3/uL (4.4-10.8)
[2023-02-15 07:01] LABS: Diff Comment Diff Reviewed; RBC Morphology Normal
[2023-02-15 07:04] LABS: ALT 186 U/L (16-63); AST 160 U/L (15-37); Alkaline Phosphatase 660 U/L (46-116); BUN 34 mg/dL (7-18); C-Reactive Protein 17.31 mg/dL (0.0-0.3); CREATININE 1.2 mg/dL (0.70-1.30); Calcium 8.3 mg/dL (8.5-10.1); Chloride 99 mmol/L (98-107); Estimated GFR 64.25 (mL/min/1.73m2); Glucose 154 mg/dL (74-106); Potassium 3.9 mmol/L (3.5-5.1); Sodium 134 mmol/L (136-145); Total Protein 7.4 g/dL (6.4-8.2)
[2023-02-15 07:17] LABS: Troponin I 128 ng/L (<or=60)
[2023-02-15 07:23] LABS: Procalcitonin 1.4 ng/mL
[2023-02-15] MEDS: Isosorbide Mononitrate 30 MG TABCR PO (08:29)
[2023-02-15] MEDS: Losartan 25 MG TAB PO (08:29)
[2023-02-15] MEDS: Linezolid 600 MG TAB PO ×2 (08:29→20:13)
[2023-02-15] MEDS: Potassium Chloride 10 MEQ CAPCR 20 MEQ PO (08:29)
[2023-02-15] MEDS: amLODIPine 5 MG TAB PO (08:29)
[2023-02-15] MEDS: Aspirin E.C. 81 MG TABEC PO (08:30)
[2023-02-15] MEDS: Dofetilide 250 MCG CAP PO ×2 (08:30→20:12)
[2023-02-15] MEDS: Pantoprazole 40 MG TABCR PO (08:30)
[2023-02-15] MEDS: Spironolactone 25 MG TAB 50 MG PO (08:30)
[2023-02-15] MEDS: Furosemide 80 MG TAB PO ×2 (08:31→17:33)
[2023-02-15] MEDS: Cholecalciferol (Vitamin D3) 1,000 UNIT TAB 2000 UNITS PO (08:31)
[2023-02-15] MEDS: Gabapentin 600 MG TAB PO ×3 (08:31→20:12)
[2023-02-15] MEDS: Insulin Aspart 300 UNITS/3 ML PEN SC ×5 (08:34→22:41)
[2023-02-15] MEDS: Insulin Glargine 300 UNITS/3 ML PEN 40 UNITS SC (08:35)
--- NOTE | 2023-02-15 10:50 | CMPROGNOTE_ITS ---
Date of service: 02/15/23 Time of Service: 10:50 Care Management Progress Note Progress Note Text Progress Note Text: S/O: Ted was lying in bed when CM met with him. His , son and daughter were in the room visiting. Per , Ted may require 7-10 more days of IV antibiotics, although his total course remains unclear. He may need to enter SWB1 for IV antibiotic therapy, and to continue to work with PT. LUIS contacted Everett, his MCR replacement plan, who reported that [facility] is not in network for [facility]. Roxana, Ted's son, stated that she would call Everett and help determine his benefit. There are no SNF's locally that would be able to accommodate IV antibiotics; LUIS explained this to Everett Cullen RN, who requested clinical information be faxed for determination. Per , Ted continues to require acute hospitalization. Roxana and Clyde are very supportive, and plan to bring their parents back to [place] as soon as Ted is medically ready to travel. CM will continue to follow. A: 72 year old male admitted to [facility] 02/08/23 for Cellulitis, Lactic acidosis, IDDM P: Awaiting culture sensitivities; DE continues to follow as well. Planning for Ted to be able to fly home upon discharge and follow up with community based services from his primary residence. CM continues to follow.
[2023-02-15 11:05] LABS: Hepatitis A Antibody IgM Negative (Negative); Hepatitis B Core Antibody Negative (Negative); Hepatitis B surface Ag Negative (Negative); Hepatitis C Ab w Rflx HCV PCR Negative (Negative)
--- NOTE | 2023-02-15 14:35 | PGE_ITS ---
Date of Service Date of service: 02/15/23 Time of Service: 14:35 Assessment and Plan Assessment and plan (1) Cellulitis of left lower extremity: Status: Acute Assessment and plan: continue Meropenem and Zyvox. MRSA screen was negative. I have asked Dr. Lincoln to evaluate the patient. I spoke with him he looked at the patient's MRI scan he sees no sign of fasciitis although there may be some component of myositis. I told Dr. Lincoln and that I did check a CK level before starting Zyvox and his CK level was normal. Professional time spent interviewing and examining patient, discussion of goals of care with hospital team (care management, nursing and consulting professionals) was 35 minutes. (2) Elevated troponin I level: Status: Acute Assessment and plan: Secondary to demand ischemia. Echo shows preserved LV function but mildly dilated right ventricle with preserved RV function. (3) Acute kidney injury superimposed on chronic kidney disease: Status: Acute Assessment and plan: Continues to improve. BUN down to 34 creatinine 1.2. (4) Acidosis, lactic: Status: Acute Assessment and plan: Improving (5) Type 1 diabetes mellitus on insulin therapy: Status: Chronic Assessment and plan: Continue basal bolus insulin. Glucose running in the 130s to 180s (6) Cor pulmonale: Status: Acute Assessment and plan: Stable on current regimen of diuretics (7) RUSSELL on CPAP: Status: Chronic Assessment and plan: Continue CPAP he has required additional oxygen to his CPAP at night per Jen from [facility]. He may need nocturnal oximetry study before dc home to see if he qualifies for home oxygen at night (8) Atrial fibrillation, persistent: Status: Chronic Assessment and plan: Remains in sinus rhythm on current dose of Tikosyn currently fully anticoagulated with Xarelto. (9) DVT prophylaxis: Status: Acute Assessment and plan: On therapeutic xarelto (10) Discharge planning issues: Status: Acute Assessment and plan: patient is full code, anticipate he will need home health w/ P.T. upon dc home. I will ask P.T. to evaluate him while he is here and begin exercises. Patient can be transferred to med/surg on telemetry Subjective Subjective Interval history since last seen: Abdiel is still having significant pain in his left foot/ankle; worse w/ weight bearing. I have incresed his oxycodone dose. He remains afebrile, his inflammatory markers are declining albeit slowly. WBC still 17,800, CRP 17.3, procalcitonin 1.4. I explained to him and his family that his MRI did not show any abscess and no fasciitis or osteomyelitis but that I will consult w/ ortho for second opinion since he has been slow to resolve. His CHF has responded well to diuretics. His right foot and leg are normal looking now and he is not dyspneic w/activity. However his left foot still is very edematous. With respect to his LFT's, they are declining and I still think this was hepatic congestion from his CHF, however, the abdominal US showed 4 mm polyp in his gallbladder which I explained he will need to have this followed and surgically excised at some time as GB polyps can become cancerous. His CBD is dilated and therefore I am recommending MRCP. We talked about continued inpatient iv antibiotic completion for treatment of his cellulitis. I think once his inflammatory markers have come down and his edema and pain have improved enough then he can go home on oral antibiotics. for now he still needs iv antibiotics and coninued hospital stay. Exam Narrative Exam Narrative: Abdiel was seen walking around the floor with physical therapy. However he is complaining of pain in his left foot and swelling of the same. Lungs are clear to auscultation Heart is regular rate and rhythm (ICU nursing staff initially reported this morning that he went into A-fib last night however have since learned that this was mislabeled and he has been in sinus rhythm ever since he converted the other day.) No appreciable murmur rub or gallop Abdomen obese soft nontender no guarding or rebound tenderness normal bowel sounds no palpable masses Lower extremities no edema in his right foot or ankle left foot still with 2+ pitting edema of his foot and ankle and lower tibia. Left foot and ankle have a discoloration, violaceous hue to the skin but the foot is warm and dry. While I cannot palpate pedal pulses he has pulses by Doppler. Skin ulcer is covered with Mepilex. Objective Last Vital Signs Temp 37.2 C 02/15/23 11:07 Pulse 64 02/15/23 11:07 Resp 17 02/15/23 11:07 BP 166/66 H 02/15/23 11:07 Pulse Ox 95 02/15/23 11:07 Laboratory Results - last 24 hr 02/14/23 02/15/23 02/15/23 08:05 06:00 06:00 WBC RBC Hgb Hct MCV MCH MCHC RDW Plt Count MPV Immature Gran % Neutrophils % Lymphocytes % Monocytes % Eosinophils % Basophils % Nucleated RBC % Absolute Neutrophils Absolute Lymphocytes Absolute Monocytes Absolute Eosinophils Absolute Basophils RBC Morphology Sodium 134 L Potassium 3.9 Chloride 99 Carbon Dioxide 29.0 Anion Gap 6.0 BUN 34 H Creatinine 1.2 Est GFR (CKD-EPI 2020) 64.25 Glucose 154 H Calcium 8.3 L Total Bilirubin 1.0 AST 160 H ALT 186 H Alkaline Phosphatase 660 H Troponin I 128 H* C-Reactive Protein 17.31 H Total Protein 7.4 Albumin 2.0 L Procalcitonin 1.4 Hepatitis A IgM Ab Negative Hep Bs Antigen Negative Hep B Core Total Ab Negative Hepatitis C Antibody Negative 02/15/23 06:00 WBC 17.84 H RBC 3.24 L Hgb 10.7 L Hct 30.0 L MCV 93 MCH 33.0 MCHC 35.7 RDW 15.5 H Plt Count 332 MPV 11.7 H Immature Gran % 7.5 Neutrophils % 60.0 Lymphocytes % 19.4 Monocytes % 9.0 Eosinophils % 3.4 Basophils % 0.7 Nucleated RBC % 0.1 Absolute Neutrophils 10.70 H Absolute Lymphocytes 3.46 H Absolute Monocytes 1.61 H Absolute Eosinophils 0.61 Absolute Basophils 0.12 RBC Morphology Normal Sodium Potassium Chloride Carbon Dioxide Anion Gap BUN Creatinine Est GFR (CKD-EPI 2020) Glucose Calcium Total Bilirubin AST ALT Alkaline Phosphatase Troponin I C-Reactive Protein Total Protein Albumin Procalcitonin Hepatitis A IgM Ab Hep Bs Antigen Hep B Core Total Ab Hepatitis C Antibody Time Spent with Patient Time Spent with Patient: 35-49 minutes Time was spent: preparing to see the patient(eg.review tests), referring, communicating with other health patient care specialist, indepentently interpreting results, counseling the patient and care coordination
--- NOTE | 2023-02-15 15:05 | PTTR_ITS ---
Date of service: 02/15/23 Time of Service: 13:15 PT Notes Visit Reasons: Cellulitis, Lactic Acidosis, IDDM Inpatient Physical Therapy Treatment Note Date: 02/15/23 PRECAUTIONS: Fall. Standard. Activity as tolerated. SUBJECTIVE: Complained of pain in the L leg of 5/10 at rest and up to 8/10 with weight bearing. States that he was given Oxycodone early this morning around 6 AM. Feels that it does not work as well as the Morphine. Nurse Odessa updated of patient's sentiments. OBJECTIVE:? ? General Observation: Mepilex Ag over medial distal third of L leg. Erythema and swelling diminishing in L leg and foot. ? PAIN: As above VITALS: Closely monitored via telemetry ? GAIT? Assistive Device: FWW ? Weight bearing: FWB Assist: Contact guard assist in the morning due to high pain level, stand by assist in the afternoon ? Distance:? In the morning 40 feet limited due to pain report; in the afternoon, 300 feet + 150 feet ? Deviation:? Mildly antalgic Skilling provided: Provided guidance and continued training?with walker manag ement with cues for controlled step length and height on the L side should pain become an issue. Provided a brand new walker for patient in the afternoon. STAIRS: Ascended and descended 3 four-inch steps and 2 six-inch steps while holding onto one rail and using SPC with the other hand?with cues provided for step-to gait patternto minimize pain level increase. Patient reported increased pain level at 8/10 requiring seated rest prior to return to room. THERA EX: Continued with gentle AROM on L ankle, ankle DF/PX x 10 for improved mobility and decreased stiffness while promoting heel-toe gait pattern. Instructed on LAQs x 10 ? ASSESSMENT:? Responds much better when pre-medicated for pain. PLAN: Pre-medicate for pain. Progress strength, balance, and mobility level as tolerated. Provide written copy of and educate on HEP/room exercises. TREATMENT CODE/TIME:
--- NOTE | 2023-02-15 15:52 | DI.VRAD_ITS ---
PROCEDURE INFORMATION: Exam: MR Abdomen Without Contrast, Biliary System Exam date and time: 02/15/2023 3:10 PM Age: 72 years old Clinical indication: Other: Dilated common bile duct; Patient HX: No recent surgeries. TECHNIQUE: Imaging protocol: MR of the abdomen without contrast. Exam focused on the biliary system and pancreatic ducts. Routine 3D-MRCP images were acquired and processed without radiologist supervision. COMPARISON: CT ABDOMEN PELVIS WO/W 01/17/2020 9:24 AM FINDINGS: Pleural spaces: There is a trace right pleural effusion. Liver: No mass. Gallbladder and bile ducts: Unremarkable. No filling defects. No ductal dilation. Pancreas: The pancreatic neck, body and tail are absent. The head and uncinate are unremarkable. Spleen: The spleen is absent. 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 Kidneys and ureters: There are simple cysts in the kidneys measuring up to 2.2 cm in the lower pole of the left kidney. No hydronephrosis. Intraperitoneal space: No fluid collection. IMPRESSION: 1. Normal caliber common bile duct. 2. Distal pancreatectomy and splenectomy. 3. Trace right pleural effusion. Dictated and Authenticated by: Parvez Umanzor MD. Ordering:[facility] Jenny Davis MD
[2023-02-15] MEDS: Rivaroxaban 10 MG TABLET 20 MG PO (17:33)
[2023-02-15] MEDS: oxyCODONE 5 MG TAB 10 MG PO (20:13)
[2023-02-16] VITALS (7 sets, daily range): BP systolic 124–177; BP diastolic 64–79; PULSE 60–80; RESP 16–18; TEMP 36–37.5; O2SAT 93–96
[2023-02-16] MEDS: MEROPENEM 1 GM in Normal Saline 100 ML IVPB ×3 (02:00→21:09)
[2023-02-16] MEDS: oxyCODONE 5 MG TAB 10 MG PO ×5 (02:01→23:10)
[2023-02-16] MEDS: Levothyroxine 50 MCG TAB PO (06:12)
[2023-02-16 06:50] LABS: Lactate 1.6 mmol/L (0.6-1.4)
[2023-02-16 07:01] LABS: HCT 32.5 % (40.0-50.0); HGB 11.6 g/dL (13.5-17.5); MCH 33.8 pg (27.0-33.0); MCHC 35.7 % (32.0-36.0); MCV 95 fL (80-95); MPV 11.2 fL (8.0-11.0); Nucleated RBC 0.1 % (0.0-0.3); Platelet Count 373 10^3/uL (130-400); RBC 3.43 10^6/uL (4.36-5.78); RDW 15.5 % (11.8-14.1); RDW-SD 54.3 fL; WBC 15.33 10^3/uL (4.4-10.8)
[2023-02-16 07:09] LABS: ALT 142 U/L (16-63); AST 100 U/L (15-37); Albumin 2.2 g/dL (3.4-5.0); Alkaline Phosphatase 621 U/L (46-116); Anion Gap 4.2 mmol/L (3-11); BUN 27 mg/dL (7-18); Bilirubin, Direct 0.4 mg/dL (0.0-0.2); Bilirubin, Total 1.4 mg/dL (0.2-1.0); CO2 28.8 mmol/L (21.0-32.0); CREATININE 1.2 mg/dL (0.70-1.30); Calcium 8.6 mg/dL (8.5-10.1); Chloride 96 mmol/L (98-107); Estimated GFR 64.25 (mL/min/1.73m2); Glucose 133 mg/dL (74-106); Potassium 4.1 mmol/L (3.5-5.1); Sodium 129 mmol/L (136-145); Total Protein 8.1 g/dL (6.4-8.2)
[2023-02-16 07:16] LABS: Absolute Basophil Count 0.15 10^3/uL (0.0-0.2); Absolute Eosinophil Count 0.61 10^3/uL (0.0-0.7); Absolute Lymphocyte Count 3.37 10^3/uL (1.2-3.4); Absolute Monocyte Count 1.23 10^3/uL (0.1-0.8); Atypical Lymphocytes % 0; Bands % 1
[2023-02-16 07:17] LABS: Diff Comment Manual Differential; Metamyelocytes % 2; Myelocytes % 3
[2023-02-16] MEDS: Linezolid 600 MG TAB PO ×2 (09:01→21:09)
[2023-02-16] MEDS: Furosemide 80 MG TAB PO ×2 (09:01→17:50)
[2023-02-16] MEDS: Dofetilide 250 MCG CAP PO ×2 (09:01→21:08)
[2023-02-16] MEDS: Insulin Glargine 300 UNITS/3 ML PEN 40 UNITS SC (09:01)
[2023-02-16] MEDS: Losartan 25 MG TAB 50 MG PO (09:02)
[2023-02-16] MEDS: amLODIPine 5 MG TAB 10 MG PO (09:03)
[2023-02-16] MEDS: Isosorbide Mononitrate 30 MG TABCR 60 MG PO (09:03)
[2023-02-16] MEDS: Potassium Chloride 10 MEQ CAPCR 20 MEQ PO (09:03)
[2023-02-16] MEDS: Aspirin E.C. 81 MG TABEC PO (09:04)
[2023-02-16] MEDS: Cholecalciferol (Vitamin D3) 1,000 UNIT TAB 2000 UNITS PO (09:04)
[2023-02-16] MEDS: Pantoprazole 40 MG TABCR PO (09:04)
[2023-02-16] MEDS: Spironolactone 25 MG TAB 50 MG PO (09:04)
[2023-02-16] MEDS: Gabapentin 600 MG TAB PO ×3 (09:04→21:08)
[2023-02-16] MEDS: Insulin Aspart 300 UNITS/3 ML PEN SC ×4 (09:10→17:52)
--- NOTE | 2023-02-16 11:02 | CMPROGNOTE_ITS ---
Date of service: 02/16/23 Time of Service: 11:03 Care Management Progress Note Progress Note Text Progress Note Text: S/O: CM met with Ted, his and daughter, at the bedside. The family reported that at this time, the plan is for Roxana (P#[phone]) and her mother to return to [place], as Roxana's , back home in [place], has COVID. Clyde and Ted will return to the [employer] [facility] in [place], the family is hiring someone to deep clean the [facility]. CM connected with Charissa PCP office out of [place], [place] (P#[phone], F#[phone]). Everett, his MCR replacement plan, is not in network for SWB at [facility]. Anticipate Ted will return to [facility]; possible new VNA orders, and discharge planning with PCP in [place] will be required. A: 72 year old male admitted to [facility] 02/08/23 for Cellulitis, Lactic acidosis, IDDM P: Awaiting culture sensitivities; DE continues to follow as well. Planning for Ted to be able to return to his [facility] with his son prior to flying home to follow up with community based services from his primary residence. CM continues to follow.
--- NOTE | 2023-02-16 11:02 | PDOC.CMPRO ---
Date of service: 02/16/23 Time of Service: 11:03 Care Management Progress Note Progress Note Text Progress Note Text: S/O: CM met with Ted, his and daughter, at the bedside. The family reported that at this time, the plan is for Roxana (P#[phone]) and her mother to return to [place], as Roxana's , back home in [place], has COVID. Clyde and Ted will return to the [facility] in [place], the family is hiring someone to deep clean the [facility]. CM connected with Charissa PCP office out of [place], [place] (P#[phone], F#[phone]). Everett, his MCR replacement plan, is not in network for SWB at [facility]. Anticipate Ted will return to [facility]; possible new VNA orders, and discharge planning with PCP in [place] will be required. A: 72 year old male admitted to [facility] 02/08/23 for Cellulitis, Lactic acidosis, IDDM P: Awaiting culture sensitivities; DE continues to follow as well. Planning for Ted to be able to return to his [facility] with his son prior to flying home to follow up with community based services from his primary residence. CM continues to follow.
--- NOTE | 2023-02-16 11:25 | W.PM.PROGNOT ---
Date of Service Date of service: 02/16/23 Time of Service: 11:25 Assessment and Plan Assessment and plan (1) Cellulitis of left lower extremity: Status: Acute Assessment and plan: continue meropenem and zyvox for now but anticipate transition to Levaquin and Zyvox upon discharge. I think one or two more days of iv antibiotics while we monitor his inflammatory markers and ensure his LFT return to normal and we transition him to his own insulin pump Professional time spent interviewing and examining patient, discussion of goals of care with hospital team (care management, nursing and consulting professionals) was 35 minutes. (2) Elevated troponin I level: Status: Acute Assessment and plan: Secondary to demand ischemia. Echo shows preserved LV function but mildly dilated right ventricle with preserved RV function. (3) Acute kidney injury superimposed on chronic kidney disease: Status: Acute Assessment and plan: Continues to improve. BUN down to 27 creatinine 1.2. (4) Abnormal transaminases: Status: Acute Assessment and plan: likely secondary to passive congestion from cor pulmonale, sepsis and aggressive fluid hydration related to resuscitation. MRCP was negative for acute biliary pathology although his US did show GB polyp which needs follow up as outpatient (which I have explained to the patient and his family) (5) Acidosis, lactic: Status: Resolved Assessment and plan: secondary to sepsis, now resolved (6) Type 1 diabetes mellitus on insulin therapy: Status: Chronic Assessment and plan: transition to his own pumpt today in anticipation of dc home in the next 1 to 2 days (7) Cor pulmonale: Status: Acute Assessment and plan: Stable on current regimen of diuretics (lasix 80 mg bid and spironolactone 50 mg daily , I am increasing his losartan to 50 mg daily. (8) CORONARY ARTERY DISEASE: Assessment and plan: his troponin leak was secondary to sepsis and demand ischemia, nevertheless he did have some CP during this hospitalizaton which may have been angina. he was started on Imdur 30 mg, I will increase to 60 mg daily and discharge him w/ Rx for Imdur and he ought to have outpatient follow up stress MPI but this can be arranged when he gets back to [place]. I will hold on resumption of atorvastatin until his transaminase has completely resolved and he has outpatient follow up labs to confirm stability in his LFT (9) RUSSELL on CPAP: Status: Chronic Assessment and plan: Continue CPAP he has required additional oxygen to his CPAP at night per Jen from [facility]. He may need nocturnal oximetry study before dc home to see if he qualifies for home oxygen at night (10) Atrial fibrillation, persistent: Status: Chronic Assessment and plan: Remains in sinus rhythm on current dose of Tikosyn currently fully anticoagulated with Xarelto. I will dc his telemetry today as his rhythm remains stable (11) DVT prophylaxis: Status: Acute Assessment and plan: On therapeutic xarelto (12) Discharge planning issues: Status: Acute Assessment and plan: patient is full code, anticipate he will need home health w/ P.T. upon dc home. I will ask P.T. to evaluate him while he is here and begin exercises. Patient can be transferred to med/surg on telemetry Subjective Subjective Interval history since last seen: Abdiel continues to improve although his left foot still is painful w/ ambulation or putting any pressure down on the foot. Dr. Lincoln has seen the patient and reviewed his MRI. He feels that the pain is secondary to cellulitis and possible myositis, although his CK is normal. I went over his labs w/ him and his family (daughter and son). His inflammatory markers continue to improve. WBC down to 15,000. procalcitionin not checked today (done yesterday, down to 1.4, however, CRP still elevated at 17). I explained to the patient and family that he may be able to go home on oral antibiotics in the next day or two. Dr. Lincoln and I discussed combo of Zyvox and Levaquin. With respect to his DM, family asked about getting him on his insulin pump before discharge, I am agreeble to this plan. I think a day of him being back on the insulin pump would allow us to be sure that he is adequately controlled before discharge. At present his glucose is much improved w/ control of his infection (glucose running 101 to 164). His family has remarked they have not seen their father with this skinny of hands/arms and legs in years. Exam Narrative Exam Narrative: Abdiel is looking markedly better. He denies any shortness of breath or chest pain. Lungs are clear to auscultation Heart is regular rate and rhythm (patient has been in sinus rhythm he never converted from sinus rhythm back in atrial fibrillation that was a mistake and report given to me yesterday by the ICU nurses. The day nurses reviewed his telemetry strips yesterday and confirmed that he had been in sinus rhythm ever since he converted from A-fib.) Abdomen is obese soft and nontender Extremities no peripheral edema of his hands arms or his right foot or leg. He still has 1+ to 2+ edema of the dorsum of his left foot and his ankle but the tibia is markedly better. The erythema has receded and is fading to a bronze discoloration. He has a Mepilex dressing over the wound which we will have the wound care nurse reevaluate. He has palpable pulses in his feet. Nursing did his PIPER and it was 1.04 on the right and 1.06 on the left Objective Last Vital Signs Temp 37.3 C 02/16/23 11:02 Pulse 80 02/16/23 11:02 Resp 16 02/16/23 11:02 BP 132/68 02/16/23 11:02 Pulse Ox 93 02/16/23 11:02 Laboratory Results - last 24 hr 02/14/23 02/16/23 02/16/23 08:05 06:40 06:40 WBC 15.33 H RBC 3.43 L Hgb 11.6 L Hct 32.5 L MCV 95 MCH 33.8 H MCHC 35.7 RDW 15.5 H Plt Count 373 MPV 11.2 H Immature Gran % See Differential Neutrophils % 59.0 Band Neutrophils % 1 Lymphocytes % 22.0 Atypical Lymphs % 0 Monocytes % 8.0 Eosinophils % 4.0 Basophils % 1.0 Metamyelocytes % 2 Myelocytes % 3 Nucleated RBC % 0.1 Absolute Neutrophils 9.20 H Absolute Lymphocytes 3.37 Absolute Monocytes 1.23 H Absolute Eosinophils 0.61 Absolute Basophils 0.15 VBG Lactate Sodium 129 L Potassium 4.1 Chloride 96 L Carbon Dioxide 28.8 Anion Gap 4.2 BUN 27 H Creatinine 1.2 Est GFR (CKD-EPI 2020) 64.25 Glucose 133 H Calcium 8.6 Total Bilirubin 1.4 H Conjugated Bilirubin 0.4 H AST 100 H ALT 142 H Alkaline Phosphatase 621 H Total Protein 8.1 Albumin 2.2 L Hepatitis A IgM Ab Negative Hep Bs Antigen Negative Hep B Core Total Ab Negative Hepatitis C Antibody Negative 02/16/23 06:40 WBC RBC Hgb Hct MCV MCH MCHC RDW Plt Count MPV Immature Gran % Neutrophils % Band Neutrophils % Lymphocytes % Atypical Lymphs % Monocytes % Eosinophils % Basophils % Metamyelocytes % Myelocytes % Nucleated RBC % Absolute Neutrophils Absolute Lymphocytes Absolute Monocytes Absolute Eosinophils Absolute Basophils VBG Lactate 1.6 H Sodium Potassium Chloride Carbon Dioxide Anion Gap BUN Creatinine Est GFR (CKD-EPI 2020) Glucose Calcium Total Bilirubin Conjugated Bilirubin AST ALT Alkaline Phosphatase Total Protein Albumin Hepatitis A IgM Ab Hep Bs Antigen Hep B Core Total Ab Hepatitis C Antibody Time Spent with Patient Time Spent with Patient: 35-49 minutes Time was spent: preparing to see the patient(eg.review tests), ordering medications,tests, procedures, indepentently interpreting results, counseling the patient and care coordination
[2023-02-16 12:16] LABS: Lab Add On Test DONE
[2023-02-16 12:36] LABS: Troponin I 87 ng/L (<or=60)
--- NOTE | 2023-02-16 15:04 | OCONE_ITS ---
Date of service: 02/16/23 Time of Service: 07:30 History of Present Illness History of Present Illness Chief Complaint: Left leg swelling and pain Narrative: Ted is a 72-year-old who has longstanding history of both lower and upper ext remity edema, atrial fibrillation, insulin-dependent diabetes among others. Approximately 1 week ago EMS arrived to his house to help with his had dementia and wandered out of the house. As they checked on the house situation he was found to be asleep with a fever and notable redness about his left leg which had worsened over the previous 48 hours or so. He is brought into the emergency department where there is a clear infection about the left leg with bilateral lower extremity swelling. He had an elevated lactic acid along with elevated procalcitonin and a fever with elevated white blood cell count and C- reactive protein. He had other electrolyte abnormalities and was admitted to hospital treatment of what appeared to be sepsis and fluid overload. He has been managed aggressively by the medicine service to decrease his fluid state and has diuresed a significant mount of fluid. He even remarks that this is a small as his legs and arms have been in many years. All culture gross, of blood and of lower leg bulla, have been without growth. His MRSA screen was negative. However, he continued to have notable redness, swelling and pain about the left lower extremity which has been slow to improve. His C-reactive protein has decreased from greater than 25-17 and his white blood cell count has decreased from 20-13. His procalcitonin has decreased appropriately as well. He has been able to ambulate although there is been moments where the pain is limiting. While he currently is having some pain with weightbearing he reports just a few days ago he was able to ambulate and even do some stairs. He reports pain primarily about the medial lateral malleolus I, medial lateral aspects of the ankle, with attempted weightbearing. As he tries to initiate ankle motion he reports pain posteriorly with ankle dorsiflexion, less pain with ankle plantarflexion. He feels that the ankle is quite stiff. There is report that he recovered from a stroke with some residual stiffness and weakness on the right side, making his left side his strong side. He has multiple bulla which are currently being managed by nursing with Mepilex dressings. His report is the redness has decreased significantly about the left leg although still present in the lower aspect. He does find improvements when the leg is elevated. He has increasing pain and swelling when the leg is dependent. He has been without fevers and chills recently. Consults Consult date: 02/16/23 Requesting physician: Rayn Alvarado Consult Reason Recalcitrant lower extremity cellulitis and infection Assessment and Plan Assessment and plan (1) Cellulitis of left lower extremity: Status: Acute Assessment and plan: Ted is a 72-year-old has a very challenging case. I understand Dr. Pierre's concerns with this presentation. If this was necrotizing fasciitis it would be unlikely that we would be having improvements at this point as typically the infection outpaced is any antibiotic treatment available. N evertheless, the recalcitrant nature of this process with his ongoing pain and swelling is of concern. I would asked that the radiologist take a second look at the MRI to be certain they have no concerns about necrotizing fasciitis on the MRI. However, he is improving, albeit slowly. I do not see any deep fascial changes on the MRI which would be most indicative of necrotizing fasciitis versus a aggressive cellulitis. I have to assume that the cellulitis is polymicrobial and its persistence as well as the setting of diabetes. He did present with a LRINEC score of 7 which is of intermediate concern for necrotizing fasciitis. Nevertheless at this point the morbidity is quite high with any surgical debridement of the fasciitis and he is showing improvements and therefore I do not think surgical debridement would make sense in this setting. He does continue to have this pain about the lower ankle and leg but I do not see any overt concerns within the MRI. I would suspect that the majority of this is due to stiffness within the muscles and soft tissues given the amount of swelling that he has and has had along with the limited mobility. I would encourage aggressive range of motion activities and strict elevation. I would continue with physical therapy. Repeat MRI or CT scan could be considered to evaluate the soft tissues once again. If he has any worsening symptoms then I would urgently repeat imaging and consider the diagnosis of some form of less aggressive necrotizing fasciitis given his medical comorbidities. However, at this point I see no need for surgical intervention. I would consider reviewing with radiology 1 additional time and also discussing with infectious disease. Given that he has had improvements I also think transitioning to an oral antibiotic is reasonable to see if he is able to tolerate that. He would like to return to [place] which I think is reasonable as long as we can see that his infection is stable on oral antibiotics. From the orthopedic perspective, I would continue with aggressive range of motion exercises and physical therapy. Assistive devices for ambulation. No restrictions with weightbearing or with range of motion. 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) Atrial fibrillation, persistent (Chronic) Hypothyroidism (acquired) (Chronic) Hypomagnesemia (Acute) Type 1 diabetes mellitus on insulin therapy (Chronic) Cellulitis (Acute) Fever (Acute) Hypokalemia (Acute) Nausea & vomiting (Acute) Leukocytosis (Acute) Insulin dependent type 2 diabetes mellitus, controlled (Acute) Right clavicle fracture (Acute 04/03/19) DJD (degenerative joint disease) of knee (Acute 03/15/13) Medical History Benign hypertension CORONARY ARTERY DISEASE CVA (cerebral vascular accident) Diabetes mellitus Hyperlipidemia Paroxysmal atrial fibrillation Surgical History EXCISION (09/10/08) ununited fracture fragment tip of olecranon as well as bursa left elbow Fasciectomy, Palmar (09/10/08) NODULAR ON THE LEFT History of pancreatectomy Post-splenectomy Repair, Rotator Cuff (09/12/12) RIGHT Stent placement 2000, 2011 Social History Smoking/Tobacco Use Status: Never Smoking risk assessment performed?: Yes Alcohol Intake: former Drug use: Never Housing: house Current gender identity: female Do you feel safe at home: Yes Do you feel safe in your relationship?: Yes Exam Narrative Exam Narrative: Sitting up in the hospital bed. No acute distress. Alert and oriented x3. Conversant and appropriate. Evaluation of the left lower extremity shows multiple wrinkles throughout the skin on the left leg as well as the right leg. There is some hyperemia seen about the left leg although not frankly cellulitic in nature at this point. The distal left lower leg has bulla which are seen over the distal aspect. These dressings are briefly removed which show thinly veiled bulla about the lower leg without overt signs of purulence. He does not have significant tenderness to palpation throughout the leg except around the ankle. He has pain to palpation along the medial lateral aspect of the ankle primarily overlying the medial lateral malleolus but also distal to within the soft tissues of the hindfoot. Less tenderness distally within the foot but he does have notable swelling with 2+ pitting edema. There is no crepitus on palpation. No subcutaneous emphysema is palpated. He is able to tolerate ankle dorsiflexion and plantarflexion with a limited arc of motion from about 5 degrees of plantarflexion to 30 degrees of plantarflexion. This does not cause any pain. However, he does report posterior based hindfoot pain if I forced dorsiflexion which is limited to about 0 degrees. He has less pain to palpation of the posterior structures but there is some mild pain in the retrocalcaneal bursa. No pain along the Achilles tendon. Once again, no pain proximally in the leg and the leg is quite soft with notable improvement with his edema with notable wrinkles. Knee range of motion is nonpainful. Some generalized decrease sensation about the forefoot but sensation grossly intact to light touch of the deep and superficial peroneal nerve and tibial nerve. Capillary refill less than 2 seconds. Active range of motion is generally limited with about -5 degrees of dorsiflexion, 30 degrees of plantarflexion, 5 degrees of eversion and 5 degrees of inversion. Results Last Vital Signs Temp 37.3 C 02/16/23 11:02 Pulse 80 02/16/23 11:02 Resp 16 02/16/23 11:02 BP 177/79 H 02/16/23 12:00 Pulse Ox 93 02/16/23 11:02 Labs 02/16/23 06:40 02/16/23 06:40 Labs: Laboratory Results - last 24 hr 02/16/23 02/16/23 02/16/23 06:40 06:40 06:40 WBC 15.33 H RBC 3.43 L Hgb 11.6 L Hct 32.5 L MCV 95 MCH 33.8 H MCHC 35.7 RDW 15.5 H Plt Count 373 MPV 11.2 H Immature Gran % See Differential Neutrophils % 59.0 Band Neutrophils % 1 Lymphocytes % 22.0 Atypical Lymphs % 0 Monocytes % 8.0 Eosinophils % 4.0 Basophils % 1.0 Metamyelocytes % 2 Myelocytes % 3 Nucleated RBC % 0.1 Absolute Neutrophils 9.20 H Absolute Lymphocytes 3.37 Absolute Monocytes 1.23 H Absolute Eosinophils 0.61 Absolute Basophils 0.15 VBG Lactate 1.6 H Sodium 129 L Potassium 4.1 Chloride 96 L Carbon Dioxide 28.8 Anion Gap 4.2 BUN 27 H Creatinine 1.2 Est GFR (CKD-EPI 2020) 64.25 Glucose 133 H Calcium 8.6 Total Bilirubin 1.4 H Conjugated Bilirubin 0.4 H AST 100 H ALT 142 H Alkaline Phosphatase 621 H Troponin I Total Protein 8.1 Albumin 2.2 L Add-On Test Request 02/16/23 02/16/23 06:40 06:40 WBC RBC Hgb Hct MCV MCH MCHC RDW Plt Count MPV Immature Gran % Neutrophils % Band Neutrophils % Lymphocytes % Atypical Lymphs % Monocytes % Eosinophils % Basophils % Metamyelocytes % Myelocytes % Nucleated RBC % Absolute Neutrophils Absolute Lymphocytes Absolute Monocytes Absolute Eosinophils Absolute Basophils VBG Lactate Sodium Potassium Chloride Carbon Dioxide Anion Gap BUN Creatinine Est GFR (CKD-EPI 2020) Glucose Calcium Total Bilirubin Conjugated Bilirubin AST ALT Alkaline Phosphatase Troponin I 87 H* Total Protein Albumin Add-On Test Request DONE Imaging Imaging Studies: CT scan of the left lower extremity performed in February 10 was reviewed. This shows diffuse subcutaneous edema throughout the leg circumferentially. There is no loose bodies. There is no sign of abscess. There is no air within the soft tissues. Calcified lower extremity vessels are present. MRI of the left lower extremity performed on 02-13 was also reviewed in detail. I examined all sequences for close inspection of any changes of concern. There is diffuse subcutaneous edema which is seen in the soft tissues which shows some enhancement but without a localized lesion or abscess. There is some fluid seen adjacent to the superficial fascia. However, I do not see any thickening of the fashion or signal changes of the deep fascia of the leg which would be expected at this point in time. Postcontrast images also showed no enhancement. Muscle signal is relatively normal with some edema seen in the muscle but without tomeka necrosis or muscle abscess. No signs of osteomyelitis. No joint effusion in the subtalar joint or tibiotalar joint. No sign of tenosynovitis.
--- NOTE | 2023-02-16 17:01 | PTTR_ITS ---
Date of service: 02/16/23 Time of Service: 10:40 PT Notes Visit Reasons: Cellulitis, Lactic Acidosis, IDDM Inpatient Physical Therapy Treatment Note [facility] Date: 02/16/23 PRECAUTIONS: Fall, standard, activity as tolerated. SUBJECTIVE: Patient, 2 family members present in room. Patient reports significant pain in the LLE, unable to bear weight, unable to ambulate. OBJECTIVE: Patient supine in bed, agreeable to therapy. ? PAIN: 02/02 VITALS: monitored by nursing staff? Therapeutic Exercises (88909h6): Direct one-on-one instruction in therapeutic exercises to develop strength, endurance, range of motion and flexibility. ? Exercises: * ankle pumps x10 * SLR x10 * SAQ x10 * Figure 4 stretch 2x30 seconds? Provided skilled instruction in proper exercise performance Provided skilled manual cues to facilitate proper muscle recruitment and/or form: Guided lower legs during figure four stretch, instructed patient on hand placement. Neuromuscular Re-education (73322w5): Activities that facilitate re-education of movement balance, posture, coordination, and proprioception or kinesthetic sense, requiring skilled tactile and verbal cues ? Exercises/techniques: Diaphragmatic breathing, physiologic sighs, coached what else is true? / what else can you feel? mindfulness technique for pain management, coached routine timed check-ins throughout the day to learn body's pain cues better. 2 family members very enthusiastic about mindfulness checkins, encouraging patient to slow down. ASSESSMENT:? Patient tolerates therapy well. Resting supine in bed at end of treatment with call johnson in easy reach. PLAN: Continue global treatment per plan of care until patient is medically ready for discharge. TREATMENT CODE/TIME: 03653 Neuro Finn 30 minutes, 40346 Ther Ex 15 minutes be ginning at 10:40
[2023-02-16] MEDS: Rivaroxaban 10 MG TABLET 20 MG PO (17:50)
--- NOTE | 2023-02-16 21:28 | NUR.NOTE ---
pt reports no bowel movement today. but 2 bowel movements yesterday. Nursing Note:
[2023-02-17] MEDS: oxyCODONE 5 MG TAB 10 MG PO ×3 (03:22→21:32)
[2023-02-17] MEDS: MEROPENEM 1 GM in Normal Saline 100 ML IVPB ×2 (04:11→13:03)
[2023-02-17] MEDS: Levothyroxine 50 MCG TAB PO (05:18)
[2023-02-17 07:07] LABS: HCT 33.9 % (40.0-50.0); HGB 12.1 g/dL (13.5-17.5); MCH 33.3 pg (27.0-33.0); MCHC 35.7 % (32.0-36.0); MCV 93 fL (80-95); MPV 10.4 fL (8.0-11.0); Platelet Count 415 10^3/uL (130-400); RBC 3.63 10^6/uL (4.36-5.78); RDW 15.6 % (11.8-14.1); RDW-SD 53.5 fL; WBC 14.85 10^3/uL (4.4-10.8)
[2023-02-17 07:22] VITALS: BP 127/6; PULSE 60; RESP 16; TEMP 36.5; O2SAT 97
[2023-02-17 07:24] LABS: ALT 114 U/L (16-63); AST 69 U/L (15-37); Albumin 2.2 g/dL (3.4-5.0); Alkaline Phosphatase 586 U/L (46-116); Anion Gap 7.7 mmol/L (3-11); BUN 26 mg/dL (7-18); Bilirubin, Total 1.5 mg/dL (0.2-1.0); C-Reactive Protein 12.13 mg/dL (0.0-0.3); CO2 26.3 mmol/L (21.0-32.0); CREATININE 1.3 mg/dL (0.70-1.30); Calcium 8.5 mg/dL (8.5-10.1); Chloride 92 mmol/L (98-107); Estimated GFR 58.37 (mL/min/1.73m2); Glucose 182 mg/dL (74-106); Potassium 4.7 mmol/L (3.5-5.1); Sodium 126 mmol/L (136-145); Total Protein 8.8 g/dL (6.4-8.2)
[2023-02-17 07:32] LABS: Absolute Eosinophil Count 0.59 10^3/uL (0.0-0.7); Absolute Lymphocyte Count 2.82 10^3/uL (1.2-3.4); Absolute Monocyte Count 1.93 10^3/uL (0.1-0.8); Absolute Neutrophil Count 9.21 10^3/uL (1.2-6.7)
[2023-02-17 07:33] LABS: Diff Comment Manual Differential; Metamyelocytes % 2
[2023-02-17 07:39] LABS: Procalcitonin 0.6 ng/mL
[2023-02-17] MEDS: Aspirin E.C. 81 MG TABEC PO (08:37)
[2023-02-17] MEDS: Potassium Chloride 10 MEQ CAPCR 20 MEQ PO (08:37)
[2023-02-17] MEDS: amLODIPine 5 MG TAB 10 MG PO (08:37)
[2023-02-17] MEDS: Pantoprazole 40 MG TABCR PO (08:37)
[2023-02-17] MEDS: Dofetilide 250 MCG CAP PO ×2 (08:37→21:33)
[2023-02-17] MEDS: Cholecalciferol (Vitamin D3) 1,000 UNIT TAB 2000 UNITS PO (08:37)
[2023-02-17] MEDS: Gabapentin 600 MG TAB PO ×3 (08:38→21:42)
[2023-02-17] MEDS: Spironolactone 25 MG TAB 50 MG PO (08:38)
[2023-02-17] MEDS: Linezolid 600 MG TAB PO (08:38)
[2023-02-17] MEDS: Furosemide 80 MG TAB PO ×2 (08:38→15:02)
[2023-02-17] MEDS: Losartan 25 MG TAB 50 MG PO (08:39)
[2023-02-17] MEDS: Isosorbide Mononitrate 30 MG TABCR 60 MG PO (08:39)
[2023-02-17] MEDS: Insulin Aspart 300 UNITS/3 ML PEN SC ×5 (08:42→17:55)
[2023-02-17] MEDS: Insulin Glargine 300 UNITS/3 ML PEN 40 UNITS SC (08:43)
--- NOTE | 2023-02-17 10:14 | PTTR_ITS ---
Date of service: 02/17/23 Time of Service: 09:20 PT Notes Visit Reasons: Cellulitis, Lactic Acidosis, IDDM Inpatient Physical Therapy Treatment Note [facility] Date: 02/17/23 PRECAUTIONS: Fall, standard, activity as tolerated. SUBJECTIVE: Patient reports foot looks way better today than yesterday, less swollen, less red. Still excruciating to touch / put weight through / have in a dependent position. At rest with leg elevated pain is negligible, with movement it becomes quite intense. OBJECTIVE: Patient supine in bed. 2 family members also present, however they leave at the start of therapy. Son returns after about 10 minutes. ? PAIN: 3/10 at rest, 8/10 with movement or sitting up. VITALS: monitored by nursing staff. ? BED MOBILITY/TRANSFERS? Rolling L/R: independent - Patient able to turn completely prone without assistance, and back to supine. Supine-sit: independent ? Sit-supine: independent ? Sit-stand: refused due to pain? Stand-sit: refused due to pain? Bed-Chair: refused due to pain? Chair-bed: refused due to pain? Provided skilled cues and instruction on performance and technique throughout. Therapeutic Exercises (74029a0): Direct one-on-one instruction in therapeutic exercises to develop strength, endurance, range of motion and flexibility. ? Exercises: * ankle pumps x10 * SLR x10 * quad set x10 * glute set x10 * heel slides x10 * seated ankle mobilization into dorsiflexion x3 with 30 second holds, instructed patient on applying overpressure with hands to knee to help drive heel onto floor. ? Provided skilled instruction in proper exercise performance Provided skilled manual cues to facilitate proper muscle recruitment and/or form. Manual Therapy (95687x4) Assisted patient in stretching global lower extremities from ankle to hip, instructing patient throughout on mindfulness, listening to body's pain cues and backing off, deep breathing exercises to downregulate nervous system and promote deeper relaxation for more effective stretching. Also instructed son on applying stretches for when patient leaves here. ASSESSMENT:? Patient tolerates therapy well. Is agreeable to continue ankle dorsiflexion mobilization as well as quad and glute isometrics 2-3x a day without therapist present in order to preserve strength and progress mobility. PLAN: Continue aggressive mobilization of LLE, global strengthening and balance training as patient is able to tolerate, until patient medically ready for discharge. TREATMENT CODE/TIME: 24548 Manual 30 minutes, 08848 Ther Ex 13 minutes beginning at 9:20
--- NOTE | 2023-02-17 11:46 | W.NUTRFU ---
Date of service: 02/17/23 Time of Service: 11:47 Nutrition Note NOTE: Followed up with Abdiel - he is eating well, taking 100% of meals from 02/15 to present. Glucose labs much improved and close to target with 126-182mb/dL over the last 5 days noted and has transitioned to his own insulin pump in readiness for discharge soon. His weight did bump a bit with a 4.4kg increase since 02/08. Pt with no new concerns - eager to get home. No new nutrition interventions planned at this time. Time Spent in Nutritional Counseling and Treatment: 15 minutes
--- NOTE | 2023-02-17 14:07 | CMPROGNOTE_ITS ---
Date of service: 02/17/23 Time of Service: 14:07 Care Management Progress Note Progress Note Text Progress Note Text: S/O: CM met with Ted, his and daughter, at the bedside. The family reported that at this time, the plan is for Roxana (P#[phone]) and her mother to return to [place], as Roxana's , back home in [place], has COVID. 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 CM connected with Charissa PCP office out of [place], [place] (P#[phone], F#[phone]). Everett, his MCR replacement plan, is not in network for SWB at [facility]. Anticipate Ted will return to [facility]; possible new VNA orders, and discharge planning with PCP in [place] will be required. A: 72 year old male admitted to [facility] 02/08/23 for Cellulitis, Lactic acidosis, IDDM P: Awaiting culture sensitivities; DE continues to follow as well. Planning for Ted to be able to return to his [facility] with his son prior to flying home to follow up with community based services from his primary residence. CM continues to follow.
--- NOTE | 2023-02-17 14:07 | PDOC.CMPRO ---
Date of service: 02/17/23 Time of Service: 14:07 Care Management Progress Note Progress Note Text Progress Note Text: S/O: CM met with Ted, his and daughter, at the bedside. The family reported that at this time, the plan is for Roxana (P#[phone]) and her mother to return to [place], as Roxana's , back home in [place], has COVID. 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 CM connected with Charissa PCP office out of [place], [place] (P#[phone], F#[phone]). Everett, his MCR replacement plan, is not in network for SWB at [facility]. Anticipate Ted will return to [facility]; possible new VNA orders, and discharge planning with PCP in [place] will be required. A: 72 year old male admitted to [facility] 02/08/23 for Cellulitis, Lactic acidosis, IDDM P: Awaiting culture sensitivities; DE continues to follow as well. Planning for Ted to be able to return to his [facility] with his son prior to flying home to follow up with community based services from his primary residence. CM continues to follow.
--- NOTE | 2023-02-17 15:55 | PTTR_ITS ---
Date of service: 02/17/23 Time of Service: 09:20 PT Notes Visit Reasons: Cellulitis, Lactic Acidosis, IDDM Inpatient Physical Therapy Treatment Note [facility] Date: 02/17/23 PRECAUTIONS: Fall, standard, activity as tolerated. SUBJECTIVE: Patient reports ankle still causing significant pain and discomfort, unable to rest foot on floor without excruciating pain, nevermind putting weight through it. Son reports patient ambulated to bathroom on tiptoe on LLE, heel would not go flat. OBJECTIVE: Supine in bed, agreeable to therapy, declines ambulation. ? PAIN: 4-5 at rest, 9/10 when sitting up with foot on floor. VITALS: monitored by nursing staff.? Therapeutic Exercises (34472b1): Direct one-on-one instruction in therapeutic exercises to develop strength, endurance, range of motion and flexibility. ? Exercises: * prone hamstring curls * 10x SLRs * 10x ankle pumps * 2x30 second seated ankle dorsiflexion mobilization. ? Provided skilled instruction in proper exercise performance Provided skilled manual cues to facilitate proper muscle recruitment and/or form. Manual Therapy (73066 x2) * 1x30 second stretch to piriformis, hamstring, hip flexor group, gastroc, soleus, lumbar spine rotation. * static pressure to muscle spasm in hamstring, 45 seconds x4 ASSESSMENT:? Patient tolerates therapy well. Requests stretches be added to home program. PLAN: Continue global treatment per plan of care until patient is medically c leared for discharge. Daughter wonders if crutches will be appropriate, however Dr Lincoln's consult note states that there is no medical reason to restrict weight bearing and that aggressive mobilization is necessary. TREATMENT CODE/TIME: 27566 manual therapy 30 minutes, 42252 Ther Ex 15 minutes beginning at 9:20
[2023-02-17] MEDS: Rivaroxaban 10 MG TABLET 20 MG PO (16:49)
--- NOTE | 2023-02-17 17:18 | PT.INTREAT ---
Date of service: 02/17/23 Time of Service: 17:18 PT Notes Visit Reasons: Cellulitis, Lactic Acidosis, IDDM Inpatient Physical Therapy Treatment Note [facility] Date: 02/17/23 PRECAUTIONS: Fall, standard, activity as tolerated. THERA ACT: Trialled a soft boot that could pull the L foot into near neutral dorsiflexion allowing passive continuous stretch to the L plantarflexors while patient is in bed with minimized potential for causing any skin issues. Added a heels-up device and a pillow to reinforce near neutral DF to B ankles. Everardo Tang was educated on placement and positioning of B LE. Charge Nurse Elke and patient's nurse were updated of plan to have said positioning device while patient is in bed. Instructed that said boot need to be removed when patient gets out of bed to walk. Also left instructions for BRIAN Garcia regarding order from Dr. Lincoln and about said device/contraption to minimize PF contracture formation on the L. TREATMENT CODE/TIME: 57968 x 18 minutes beginning at 17:18 PM.
--- NOTE | 2023-02-17 18:38 | NUR.NOTE ---
PT was in with patient and placed blue bootie on left foot to help with flexion of the foot. be proped up with pillows to ensure its held up.Nursing Note:
--- NOTE | 2023-02-17 19:08 | W.PM.PROGNOT ---
Date of Service Date of service: 02/17/23 Time of Service: 19:08 Assessment and Plan Assessment and plan (1) Cellulitis of left lower extremity: Status: Acute Assessment and plan: WBC continues to improve. CRP improved but still considerably elevated. MRI of LLE w/o evidence of focal fluid collection, osteomyelitis. NOrmal signal and size of the musculotendinous structures noted. Dr Lincoln has evaluated. Stopped Zyvox; now hyponatremic and zyvox could be the etiology. Spoke with ID at [facility] and recommended either stopping antibiotics now if clinically this appeared to be appropriate but if to continue on oral antibiotics they recommended doxycycline and Levaquin. He is on dofetilide so with the potential interaction with this levaquin, augmentin initiated instead along with the doxycycline. Monitor to be assured that the cellulitis continues to improve. Professional time spent interviewing and examining patient, discussion of goals of care with hospital team (care management, nursing and consulting professionals) was 35 minutes. (2) Hyponatremia: Status: Acute Assessment and plan: Stopped Zyvox. Possibly SIADH vs Zyvox related. No excessive fluid intake noted. Monitor. (3) Elevated troponin I level: Status: Acute Assessment and plan: Secondary to demand ischemia. Echo shows preserved LV function but mildly dilated right ventricle with preserved RV function. (4) Acute kidney injury superimposed on chronic kidney disease: Status: Acute Assessment and plan: Continues to improve. BUN down to 26 creatinine 1.3. (5) Abnormal transaminases: Status: Acute Assessment and plan: likely secondary to passive congestion from cor pulmonale, sepsis and aggressive fluid hydration related to resuscitation. MRCP was negative for acute biliary pathology although his US did show GB polyp which needs follow up as outpatient (which has been explained to the patient and his family) (6) Acidosis, lactic: Status: Resolved Assessment and plan: secondary to sepsis, now resolved (7) Type 1 diabetes mellitus on insulin therapy: Status: Chronic Assessment and plan: transition to his own insulin pump today in anticipation of dc home in the next 1 to 2 days (8) Cor pulmonale: Status: Acute Assessment and plan: Stable on current regimen of diuretics (lasix 80 mg bid and spironolactone 50 mg daily. Has had his losartan increased to 50 mg daily. (9) CORONARY ARTERY DISEASE: Assessment and plan: his troponin leak was secondary to sepsis and demand ischemia, nevertheless he did have some CP during this hospitalizaton which may have been angina. He was started on Imdur 30 mg, then increased to 60 mg daily and discharge him w/ Rx for Imdur and he ought to have outpatient follow up stress MPI but this can be arranged when he gets back to [place]. Hold on resumption of atorvastatin until his transaminase has completely resolved and he has outpatient follow up labs to confirm stability in his LFT (10) RUSSELL on CPAP: Status: Chronic Assessment and plan: Continue CPAP he has required additional oxygen to his CPAP at night per Jen from [facility]. He may need nocturnal oximetry study before dc home to see if he qualifies for home oxygen at night (11) Atrial fibrillation, persistent: Status: Chronic Assessment and plan: Remains in sinus rhythm on current dose of Tikosyn currently fully anticoagulated with Xarelto. His telemetry has been d/c'd (12) DVT prophylaxis: Status: Acute Assessment and plan: On therapeutic xarelto (13) Discharge planning issues: Status: Acute Assessment and plan: patient is full code, anticipate he will need home health w/ P.T. upon dc home. I will ask P.T. to evaluate him while he is here and begin exercises. Patient can be transferred to med/surg on telemetry Subjective Subjective Patient reports: no new complaints, feels better, still having pain (left lower ext and dorsum of foot. ) and afebrile; denies nausea, vomiting or shortness of breath Exam Narrative Exam Narrative: Gen: Lying in bed. Cooperative and pleasant. Lungs are clear to auscultation Heart is regular rate and rhythm Abdomen is obese soft and nontender Extremities no peripheral edema of his hands arms or his right foot or leg. 1+edema of the dorsum of his left foot and his ankle but the tibia is markedly better and shows only nonpitting edema. The erythema has receded and is fading to a bronze discoloration. He has a Mepilex dressing over the wound which we will have the wound care nurse reevaluate. He has palpable pulses in his feet. Nursing did his PIPER and it was 1.04 on the right and 1.06 on the left Psych: A&O x 3. Affect appropriate. Objective Last Vital Signs Temp 36.5 C 02/17/23 07:22 Pulse 60 02/17/23 07:22 Resp 16 08/25/23 07:22 BP 127/6 L 02/17/23 07:22 Pulse Ox 97 02/17/23 07:22 Laboratory Results - last 24 hr 02/17/23 02/17/23 02/17/23 06:06 06:06 06:06 WBC 14.85 H RBC 3.63 L Hgb 12.1 L Hct 33.9 L MCV 93 MCH 33.3 H MCHC 35.7 RDW 15.6 H Plt Count 415 H MPV 10.4 Immature Gran % See Differential Neutrophils % 62.0 Lymphocytes % 19.0 Monocytes % 13.0 Eosinophils % 4.0 Basophils % 0.0 Metamyelocytes % 2 Nucleated RBC % 0.0 Absolute Neutrophils 9.21 H Absolute Lymphocytes 2.82 Absolute Monocytes 1.93 H Absolute Eosinophils 0.59 Absolute Basophils 0.00 Sodium 126 L Potassium 4.7 Chloride 92 L Carbon Dioxide 26.3 Anion Gap 7.7 BUN 26 H Creatinine 1.3 Est GFR (CKD-EPI 2020) 58.37 Glucose 182 H Calcium 8.5 Total Bilirubin 1.5 H AST 69 H ALT 114 H Alkaline Phosphatase 586 H C-Reactive Protein 12.13 H Total Protein 8.8 H Albumin 2.2 L Procalcitonin 0.6 Time Spent with Patient Time Spent with Patient: 35-49 minutes Time was spent: preparing to see the patient(eg.review tests), obtaining and/or reviewing separately otained hiistory, ordering medications,tests, procedures, referring, communicating with other health veterinarian laboratory animal care, indepentently interpreting results, counseling the patient and care coordination
[2023-02-17] MEDS: HYDROmorphone 2 MG/ML SYR 1 MG IVP (19:22)
--- NOTE | 2023-02-17 20:40 | WOUNDCONS_ITS ---
- If Service Date Differs Date of service: 02/17/23 Time of Service: 19:00 Wound Initial Evaluation Narrative: Ted is a 72 year old male who lives primarily in [place] for 7 months out of the year and 5 months locally in his camper with his . 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 On MondayFebruary 07, he noted increased swelling, redness, and blistering on his left lower leg. On the , his was out wandering around the campground when neighbors became concerned. Upon checking on Ted, they found him unresponsive in his bed. He came to the ED and was admitted for cellulitis and septic shock. His stay was complicated by acute kidney injury, cor pulmonale, elevated liver enzymes, elevated troponins felt to be from demand ischemia, and lactic acidosis from the sepsis. 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 He is on tikosyn for the atrial fib as well as penitentiary xarelto. Labs 02/08 02/09 02/10 02/11 02/16 02/17 WBC 28.4 43.17 14.85 Lactate 4.8 6.5 1.6 Procal 5.5 16.6 0.6 CRP >25 12.13 Wound care was consulted after a week of the patient being treated. Patient's son at the bedside at time of consult. Concerned that the wound has been redressed twice since being in the hospital. Pt has a mepilex dressing in place currently that is clean dry and intact. Pt and son advised that with the type of dressing that pt has in place, it is appropriate to leave it in place for several days unless soiled or dislodged. Pt has been medicated a couple of hours ago with oxycodone. Upon attempting to remove the dressing, pt noted to have significant discomfort. Pain is a 5 but when touched jumps up even higher. Requested a dose of IV pain medication to aide in wound care evaluation. Gathered supplies after medication given to allow medication to take effect. Pt resting calmly after medication, dozing off briefly while supplies gathered. Able to removed dressing after moistening with normal saline. Minimal drainage on dressing. Body Four View: 1 - Left medial anterior lower leg. 2 - Left posterior lower leg. - Wound Left Lower Anterior Medial Tib/Fib(lower leg) Wound Type: Partial Thickness, Other Wound General Appearance: Reddened, Unapproximated Wound Bed Greatest Portion: Red (Granulation), Shiny Wound Bed Lesser Portion: Other (dry flakey skin) Wound Surrounding Tissue Appearance: [place], Bright Red (bright red medial ankle) Percent of Wound Bed Granulated/Red: 75 Percent of Wound Bed Slough/Yellow: 25 (dry flakey skin) Percent of Wound Bed Eschar/Black: 0 Wound Length: 6.69 in (17 cm) Wound Width: 4.13 in (10.5 cm) Wound Depth: 0.02 in (0.05cm) Wound Drainage Amount: Minimal Wound Drainage Odor: None/Absent Wound Drainage Description: Serous Wound Topical Solution/Irrigant: Saline Irrigant Wound Debridement Method: Forceps, Conservative Sharp, Other (debrisoft sponge, peeling skin removed with forceps and scissors) Wound Debridement Result: Healthy Tissue Revealed Wound Debridement Amount of Tissue Removed: Moderate Additional Other Comments: skin flakes of nonadhered nonviable tissue - Circulation, Sensation, Motion Edema Degree: Trace (at the ankle) Peripheral Pulse Strength: Normal Capillary Refill: Less than 3 seconds Sensation Description: Within Normal Limits Skin Temperature: Warm Skin Color: Angel - PIPER Comment:: deferred due to discomfort and mechanism of occurence - Pain Pain Level: 5 Pain Scale Used: Adult Pain Description: Burning, Sharp Pain Duration (Hours): 0.25 (medication obtained) Pain Duration/Frequency: Constant, Intermittent (increased with touch), With Movement, With Palpation, With Weight Bearing Was able to remove moderate amount of top layer of peeling nonviable skin from anterior, medial, and posterior leg. Skin bright red underneath and dry. No drainage noted. Added moisture using Hydrogel to the open areas. Overall, I do not see any physical signs of infection in the tissue. There are residual patches of dry flakey skin scattered around edges of the wound as well as within the wound that are still adhered. I anticipate that with time, these areas may peel easily as well. He also has small fluid filled blisters noted on the posterior portion of the leg that I also anticipate will rupture. There is blood staining under the skin in this area. Due to being on Xarelto, this area was left intact. - Photo Photo: Small blistering remains in the posterior location. Some blood noted under intact tissue. No active bleeding noted. - Treatment/Dressing Change Topicals/Ointments: Hydrogel(Duoderm) Cleanse With: Saline Dressing Types: Foam, Sterile Gauze (conforming gauze wrap covered with stockingette) Dressing Comment: Mepilex foam dressing without border - Nutrition Education Reviewed Nutrition Education: Yes Note: Discussed balanced diabetic diet and quality protein. Discussed importance of keeping his blood sugars controlled for good wound healing. Also discussed water intake since he is hyponatremic. And the importance of daily weights to report to his primary care provider any weight gain of more than 2 or 3 pounds in a day. - Recomendation Recomendation:: Left lower le. Premedicate patient prior to dressing change. 2. Remove old dressing using saline to moisten to aid in easier removal of dressing. 3. Clean area with saline and pat dry with gauze. 4. Apply nickel thickness of Hydrogel to open wound area. 5. Cover with a 6x6 Mepilex foam dressing. 6. Wrap the lower leg starting at the toes with conforming gauze wrap and tape the end in place. 7.Cover with stockingette to help keep the dressing in place. 8 Change every 3 days and prn if dressing soiled or dislodged. Keep leg elevated on 2 pillows length keith with support behind the knee. Foam bootie while in bed. Physcian/Nurse Practioner Notified: Yes Referrals: Dietary, Physical Therapy (referrals already ordered) Treatment Time - Time Total Time Spent with Patient: 100 minutes - Patient Will be Seen Weekly Treatment: 2x/wk - For: For:: 2 weeks (Son observed entire process of dressing. Supplies given for 2 changes at home.)
[2023-02-17] MEDS: Amoxicillin 875/Clav. 125 TAB PO (21:31)
[2023-02-17] MEDS: Doxycycline Hyclate 100 MG CAP PO (21:31)
[2023-02-17] MEDS: Baclofen 10 MG TAB 5 MG PO (21:33)
[2023-02-17 21:39] VITALS: BP 135/56; PULSE 77; RESP 18; TEMP 36.8; O2SAT 95
[2023-02-17] MEDS: Normal Saline Flush 10 ML SYR IVP (21:52)
[2023-02-18] MEDS: oxyCODONE 5 MG TAB 10 MG PO (03:41)
[2023-02-18 04:22] VITALS: BP 164/70; PULSE 83; RESP 18; TEMP 36.6; O2SAT 96
[2023-02-18] MEDS: Levothyroxine 50 MCG TAB PO (06:03)
[2023-02-18] MEDS: Baclofen 10 MG TAB 5 MG PO ×2 (06:04→16:30)
[2023-02-18 06:57] LABS: HCT 33.4 % (40.0-50.0); HGB 11.5 g/dL (13.5-17.5); MCH 32.8 pg (27.0-33.0); MCHC 34.4 % (32.0-36.0); MCV 95 fL (80-95); Platelet Count 403 10^3/uL (130-400); RBC 3.51 10^6/uL (4.36-5.78); RDW 15.4 % (11.8-14.1); RDW-SD 53.1 fL; WBC 12.56 10^3/uL (4.4-10.8)
[2023-02-18 07:09] LABS: Anion Gap 7.4 mmol/L (3-11); BUN 36 mg/dL (7-18); CO2 26.6 mmol/L (21.0-32.0); CREATININE 1.4 mg/dL (0.70-1.30); Calcium 8.4 mg/dL (8.5-10.1); Chloride 94 mmol/L (98-107); Glucose 243 mg/dL (74-106); Magnesium 2.2 mg/dL (1.8-2.4); Potassium 5.4 mmol/L (3.5-5.1); Sodium 128 mmol/L (136-145)
[2023-02-18 07:22] VITALS: BP 138/85; PULSE 91; RESP 18; TEMP 36.4; O2SAT 96
[2023-02-18 07:47] LABS: Absolute Basophil Count 0.13 10^3/uL (0.0-0.2); Absolute Eosinophil Count 0.25 10^3/uL (0.0-0.7); Absolute Lymphocyte Count 2.39 10^3/uL (1.2-3.4); Absolute Monocyte Count 1.76 10^3/uL (0.1-0.8); Absolute Neutrophil Count 8.04 10^3/uL (1.2-6.7); Diff Comment Manual Differential; RBC Morphology Normal
[2023-02-18] MEDS: amLODIPine 5 MG TAB 10 MG PO (08:57)
[2023-02-18] MEDS: Isosorbide Mononitrate 30 MG TABCR 60 MG PO (08:57)
[2023-02-18] MEDS: Cholecalciferol (Vitamin D3) 1,000 UNIT TAB 2000 UNITS PO (08:57)
[2023-02-18] MEDS: Amoxicillin 875/Clav. 125 TAB PO ×2 (08:57→22:31)
[2023-02-18] MEDS: Doxycycline Hyclate 100 MG CAP PO ×2 (08:58→22:31)
[2023-02-18] MEDS: Gabapentin 600 MG TAB PO ×2 (08:58→22:31)
[2023-02-18] MEDS: Dofetilide 250 MCG CAP PO ×2 (08:58→22:31)
[2023-02-18] MEDS: Spironolactone 25 MG TAB 50 MG PO (09:03)
[2023-02-18] MEDS: Furosemide 80 MG TAB PO (09:04)
[2023-02-18] MEDS: Potassium Chloride 10 MEQ CAPCR 20 MEQ PO (09:06)
[2023-02-18] MEDS: Normal Saline Flush 10 ML SYR IVP (09:08)
[2023-02-18] MEDS: Aspirin E.C. 81 MG TABEC PO (09:08)
[2023-02-18] MEDS: Insulin Aspart 300 UNITS/3 ML PEN SC ×5 (09:24→23:40)
--- NOTE | 2023-02-18 09:40 | PGE_ITS ---
Date of Service Date of service: 02/18/23 Time of Service: 09:40 Assessment and Plan Assessment and plan (1) Cellulitis of left lower extremity: Status: Acute Assessment and plan: Resolving. Continue with antibiotics as directed by infectious disease until clinical resolution. MRI was reviewed with radiology yesterday which did not show any signs of complication such as a missed necrotizing fasciitis or deep abscess. May apply heat or ice as needed to the left leg. (2) Arthrosis of left ankle: Status: Acute Assessment and plan: Given the normal MRI and the improvement of symptoms and labs I suspect that some of this pain from the left ankle is actually to the stiffness. Is quite normal after infection to get significant fibrosis and scarring and that is likely what has happened. Therefore, I recommend an aggressive stretching program. He was placed into a heel support brace last night but this does not apply much dorsiflexion force. Therefore, I placed him into a plantar fascia brace which will keep the foot in more dorsiflexed position. He should wear this is much as he can tolerate particular when he is in the bed. He will continue with weightbearing as tolerated using what ever assistive device physical therapy deems necessary. Heel lift may be required with shoe wear. From my perspective once he is safe he may discharge to home with home health services and eventually back to his home in [place]. Subjective Subjective Interval history since last seen: Abdiel seems to think that he is doing better. He has had continued resolution of swelling and feels that the pain is slowly getting better. He has been working on some stretching and he did wear a brace last night. He was able to mobilize briefly yesterday. No fevers no chills. Exam Narrative Exam Narrative: Sitting up in the hospital bed. No acute distress. He does seem slightly tired this morning but is answering appropriately. Evaluation of left lower extremity shows significant resolution of the swelling within the foot. There still is notable brawniness and density of the lower leg which is tender to palpation. Do not remove the dressings to evaluate the areas of ulceration but I did review the nursing note from yesterday's wound care visit. Tenderness palpation throughout the Achilles and gastrocnemius complex. Pain throughout the posterior aspect the leg and the ankle. He holds the ankle in a plantarflexed position about 30 degrees. I am able to get him to about 5 degrees of neutral and I really hold him and passive dorsiflexion. General restriction of motion throughout all planes of motion. He is able to tolerate this relatively well. Objective Last Vital Signs Temp 36.4 C L 02/18/23 07:22 Pulse 91 H 02/18/23 07:22 Resp 18 02/18/23 07:22 BP 138/85 02/18/23 07:22 Pulse Ox 96 02/18/23 07:22 Laboratory Results - last 24 hr 02/18/23 02/18/23 06:11 06:11 WBC 12.56 H RBC 3.51 L Hgb 11.5 L Hct 33.4 L MCV 95 MCH 32.8 MCHC 34.4 RDW 15.4 H Plt Count 403 H MPV 11.0 Immature Gran % See Differential Neutrophils % 64.0 Lymphocytes % 19.0 Monocytes % 14.0 Eosinophils % 2.0 Basophils % 1.0 Nucleated RBC % 2.0 H Absolute Neutrophils 8.04 H Absolute Lymphocytes 2.39 Absolute Monocytes 1.76 H Absolute Eosinophils 0.25 Absolute Basophils 0.13 RBC Morphology Normal Sodium 128 L Potassium 5.4 H Chloride 94 L Carbon Dioxide 26.6 Anion Gap 7.4 BUN 36 H Creatinine 1.4 H Est GFR (CKD-EPI 2020) 53.40 Glucose 243 H Calcium 8.4 L Magnesium 2.2 Time Spent with Patient Time Spent with Patient: >50 minutes Time was spent: preparing to see the patient(eg.review tests), obtaining and/or reviewing separately otained hiistory, referring, communicating with other health care coordination manager, indepentently interpreting results, counseling the patient and care coordination
--- NOTE | 2023-02-18 10:02 | PT.INTREAT ---
Date of service: 02/18/23 Time of Service: 10:03 PT Notes Visit Reasons: Cellulitis, Lactic Acidosis, IDDM Inpatient Physical Therapy Treatment Note [facility] Date: 02/18/23 PRECAUTIONS: Fall, standard, activity as tolerated. SUBJECTIVE: patient and son present in room. Patient reports much decreased pain this morning. Son reports Dr Lincoln came in, educated on Plantar Fasciitis brace, which patient has already worn for 20 minutes this morning. OBJECTIVE: Patient is sitting up in recliner, feet down. Agreeable to therapy. ? PAIN: 5/10 at start of treatment, 8/10 at conclusion. VITALS: monitored by nursing staff.? BED MOBILITY/TRANSFERS? Rolling L/R: independent Supine-sit: independent ? Sit-supine: independent ? Sit-stand: independent ? Stand-sit: independent ? Bed-Chair: CGA ? Chair-bed: CGA Provided skilled cues and instruction on performance and technique throughout. Gait Training ([id number]): Direct one-on-one instruction and skilled instruction in: [x] employing an assistive device - crutches [x] modified weight-bearing status - WBAT due to pain [x] Provided verbal cues for equipment management and technique - stand to sit, sit to stand with crutches in one hand and other hand on armrest. [x] Patient education regarding pacing and breathing techniques to control pain, maximize activity tolerance? GAIT? Assistive Device: crutches ? Weight bearing: WBAT LLE Assist: CGA to SBA ? Distance:? 20 feet, seated rest x2 ? Deviation: step-to gait pattern with left leg leading, right leg coming to about mid foot. Significant weight through arms, 50% or more. Educated patient on using stride to further mobilize ankle joint. ? Therapeutic Exercises (31332t8): Direct one-on-one instruction in therapeutic exercises to develop strength, endurance, range of motion and flexibility. HEP as created yesterday briefly reviewed with patient and son today. Both reported patient went through several of these yesterday afternoon. Access Code: [email or web address] URL: [email or web address] Date: 02/18/2023 Prepared by: Radha Mojica Exercises - Seated Ankle Dorsiflexion Stretch - 1 x daily - 7 x weekly - 3 sets - 10 reps - Seated Single Arm Wrist Extension Stretch - 1 x daily - 7 x weekly - 3 sets - 10 reps - Seated Single Arm Wrist Flexion Stretch - 1 x daily - 7 x weekly - 3 sets - 10 reps - Seated Hamstring Stretch - 1 x daily - 7 x weekly - 3 sets - 10 reps - Supine Single Knee to Chest Stretch - 1 x daily - 7 x weekly - 3 sets - 10 reps - Modified Ellis Stretch - 1 x daily - 7 x weekly - 3 sets - 10 reps - Supine ITB Stretch with Strap - 1 x daily - 7 x weekly - 3 sets - 10 reps - Supine Piriformis Stretch with Leg Straight - 1 x daily - 7 x weekly - 3 sets - 10 reps - Seated Anterior Tibialis Stretch - 1 x daily - 7 x weekly - 3 sets - 10 reps - Supine Lower Trunk Rotation - 1 x daily - 7 x weekly - 3 sets - 10 reps - Seated Lumbar Flexion Stretch - 1 x daily - 7 x weekly - 3 sets - 10 reps - Supine Cervical Sidebending Stretch - 1 x daily - 7 x weekly - 3 sets - 10 reps - Seated Chest Stretch with Hands Behind Head - 1 x daily - 7 x weekly - 3 sets - 10 reps - Seated Overhead Reach Stretch - 1 x daily - 7 x weekly - 3 sets - 10 reps - Seated Sidebending Arms Overhead - 1 x daily - 7 x weekly - 3 sets - 10 reps Patient Education - What Is Pain? - Treating Persistent Pain Without Medications: Mindfulness - Treating Persistent Pain Without Medications: Relaxation - Treating Persistent Pain Without Medications: Exercise - Treating Persistent Pain Without Medications: PT, OT, and TENS Therapy ASSESSMENT:? Patient tolerates therapy well despite increase in pain. Resting in recliner at end of therapy. Advised patient to practice with crutches as long as he has someone else present and feels up to it. If he feels fatigued or is alone, use FWW PLAN: Continue treatment per plan of care. Dr Leong was present for a few minutes, stated patient may discharge as early as tomorrow provided his WBC continues to trend in the right direction. TREATMENT CODE/TIME: [id number] Gait for 35 minutes beginning at 10:03
[2023-02-18] MEDS: Insulin Glargine 300 UNITS/3 ML PEN 40 UNITS SC (13:24)
[2023-02-18] MEDS: Losartan 25 MG TAB 50 MG PO (14:01)
[2023-02-18] MEDS: Pantoprazole 40 MG TABCR PO (14:03)
[2023-02-18] MEDS: diazePAM 10 MG/2 ML SYR 5 MG IVP (14:49)
[2023-02-18] MEDS: Normal Saline 250 ML 500 ML IV (16:00)
[2023-02-18] MEDS: Normal Saline 500 ML IV (16:15)
[2023-02-18] MEDS: Rivaroxaban 10 MG TABLET 20 MG PO (16:28)
--- NOTE | 2023-02-18 18:24 | W.PM.PROGNOT ---
Date of Service Date of service: 02/18/23 Time of Service: 18:24 Objective Last Vital Signs Temp 36.4 C L 02/18/23 07:22 Pulse 91 H 02/18/23 07:22 Resp 18 02/18/23 07:22 BP 138/85 02/18/23 07:22 Pulse Ox 96 02/18/23 07:22 Laboratory Results - last 24 hr 02/18/23 02/18/23 06:11 06:11 WBC 12.56 H RBC 3.51 L Hgb 11.5 L Hct 33.4 L MCV 95 MCH 32.8 MCHC 34.4 RDW 15.4 H Plt Count 403 H MPV 11.0 Immature Gran % See Differential Neutrophils % 64.0 Lymphocytes % 19.0 Monocytes % 14.0 Eosinophils % 2.0 Basophils % 1.0 Nucleated RBC % 2.0 H Absolute Neutrophils 8.04 H Absolute Lymphocytes 2.39 Absolute Monocytes 1.76 H Absolute Eosinophils 0.25 Absolute Basophils 0.13 RBC Morphology Normal Sodium 128 L Potassium 5.4 H Chloride 94 L Carbon Dioxide 26.6 Anion Gap 7.4 BUN 36 H Creatinine 1.4 H Est GFR (CKD-EPI 2020) 53.40 Glucose 243 H Calcium 8.4 L Magnesium 2.2
[2023-02-18] MEDS: Acetaminophen 500 MG TAB PO (22:31)
[2023-02-18 22:35] VITALS: BP 132/79; PULSE 100; RESP 20; TEMP 37; O2SAT 95
[2023-02-18 22:50] LABS: Abs Immature Grans 0.12 10^3/uL (0.0-0.06); Absolute Eosinophil Count 0.15 10^3/uL (0.0-0.7); Absolute Lymphocyte Count 2.14 10^3/uL (1.2-3.4); Absolute Monocyte Count 1.34 10^3/uL (0.1-0.8); Absolute Neutrophil Count 8.33 10^3/uL (1.2-6.7); Basophils % 0.2; Eosinophils % 1.2; HCT 33.4 % (40.0-50.0); HGB 11.6 g/dL (13.5-17.5); Lymphocytes % 17.7; MCH 32.9 pg (27.0-33.0); MCHC 34.7 % (32.0-36.0); MCV 95 fL (80-95); MPV 9.8 fL (8.0-11.0); Monocytes % 11.1; Neutrophils % 68.8; Nucleated RBC 0.2 % (0.0-0.3); Platelet Count 457 10^3/uL (130-400); RBC 3.53 10^6/uL (4.36-5.78); RDW 15.1 % (11.8-14.1); RDW-SD 52.4 fL; WBC 12.11 10^3/uL (4.4-10.8)
[2023-02-18 22:53] LABS: Absolute Basophil Count 0.02 10^3/uL (0.0-0.2)
[2023-02-18 23:13] LABS: ALT 74 U/L (16-63); AST 51 U/L (15-37); Albumin 2.3 g/dL (3.4-5.0); Alkaline Phosphatase 501 U/L (46-116); Anion Gap 10.4 mmol/L (3-11); BUN 41 mg/dL (7-18); Bilirubin, Total 0.8 mg/dL (0.2-1.0); CO2 22.6 mmol/L (21.0-32.0); CREATININE 1.6 mg/dL (0.70-1.30); Calcium 8.4 mg/dL (8.5-10.1); Chloride 94 mmol/L (98-107); Glucose 261 mg/dL (74-106); Magnesium 2.2 mg/dL (1.8-2.4); Potassium 5.2 mmol/L (3.5-5.1); Sodium 127 mmol/L (136-145); Total Protein 9.2 g/dL (6.4-8.2)
[2023-02-19] MEDS: oxyCODONE 5 MG TAB PO (02:51)
[2023-02-19] MEDS: Polyethylene Glycol 3350 17 GM PACKET PO (02:51)
[2023-02-19 03:10] VITALS: BP 155/65; PULSE 79; RESP 18; TEMP 36.6; O2SAT 95
[2023-02-19] MEDS: Levothyroxine 50 MCG TAB PO (05:35)
[2023-02-19 05:55] VITALS: BP 160/68; PULSE 79; RESP 18; TEMP 36.5; O2SAT 96
--- NOTE | 2023-02-19 07:05 | PGE_ITS ---
Date of Service Date of service: 02/18/23 Time of Service: 17:35 Assessment and Plan Assessment and plan (1) Cellulitis of left lower extremity: Status: Acute Assessment and plan: WBC continues to improve. CRP improved but still considerably elevated. MRI of LLE w/o evidence of focal fluid collection, osteomyelitis. NOrmal signal and size of the musculotendinous structures noted. Dr Lincoln has evaluated. Recommending an aggressive stretching regimen of the left ankle. Plantar fascia brace applied. Stopped Zyvox d/t hyponatremic and zyvox could be the etiology. Spoke with ID at [facility] and recommended either stopping antibiotics now if clinically this appeared to be appropriate but if to continue on oral antibiotics they recommended doxycycline and Levaquin. He is on dofetilide so with the potential interaction with this levaquin, augmentin initiated instead along with the doxycycline. Monitor to be assured that the cellulitis continues to improve. Professional time spent interviewing and examining patient, discussion of goals of care with hospital team (care management, nursing and consulting professionals) was 35 minutes. (2) Hyponatremia: Status: Acute Assessment and plan: Stopped Zyvox. Possibly SIADH vs Zyvox related. No excessive fluid intake noted. Monitor. (3) Muscle cramps: Status: Acute Assessment and plan: Likely d/t diuresis. Valium 5mg IV x 1 did not relieve the cramping. Improved after NS 250ml infused. Monitoring lytes. (4) Elevated troponin I level: Status: Acute Assessment and plan: Secondary to demand ischemia. Echo shows preserved LV function but mildly dilated right ventricle with preserved RV function. (5) Acute kidney injury superimposed on chronic kidney disease: Status: Acute Assessment and plan: Continues to improve. BUN down to 26 creatinine 1.3. (6) Abnormal transaminases: Status: Acute Assessment and plan: likely secondary to passive congestion from cor pulmonale, sepsis and aggressive fluid hydration related to resuscitation. MRCP was negative for acute biliary pathology although his US did show GB polyp which needs follow up as outpatient (which has been explained to the patient and his family) (7) Acidosis, lactic: Status: Resolved Assessment and plan: secondary to sepsis, now resolved (8) Type 1 diabetes mellitus on insulin therapy: Status: Chronic Assessment and plan: transition to his own insulin pump today if he is able to show he can manage it. (9) Cor pulmonale: Status: Acute Assessment and plan: Stable on current regimen of diuretics (lasix 80 mg bid and spironolactone 50 mg daily. Has had his losartan increased to 50 mg daily. Hold lasix d/t cramping of his extremities that could be d/t diureses. (10) CORONARY ARTERY DISEASE: Assessment and plan: his troponin leak was secondary to sepsis and demand ischemia, nevertheless he d id have some CP during this hospitalizaton which may have been angina. He was started on Imdur 30 mg, then increased to 60 mg daily and discharge him w/ Rx for Imdur and he ought to have outpatient follow up stress MPI but this can be arranged when he gets back to [place]. Hold on resumption of atorvastatin until his transaminase has completely resolved and he has outpatient follow up labs to confirm stability in his LFT (11) RUSSELL on CPAP: Status: Chronic Assessment and plan: Continue CPAP he has required additional oxygen to his CPAP at night per Jen from [place]. He may need nocturnal oximetry study before dc home to see if he qualifies for home oxygen at night (12) Atrial fibrillation, persistent: Status: Chronic Assessment and plan: Remains in sinus rhythm on current dose of Tikosyn currently fully anticoagulated with Xarelto. His telemetry has been d/c'd (13) DVT prophylaxis: Status: Acute Assessment and plan: On therapeutic xarelto (14) Discharge planning issues: Status: Acute Assessment and plan: patient is full code, anticipate he will need home health w/ P.T. upon dc home. His son will be staying with him and then planning to accompany him back to [place]. Subjective Subjective Interval history since last seen: Pt more tired appearing. Falls asleep readily after engaging in exam/discussion Daughter and son present. They notice he is slower to peform tasks and somewhat confused. Eating OK Later in day he developed cramping of extremities. Exam Narrative Exam Narrative: Gen: Initial visit: sitting n chair. Cooperative and pleasant. Appears sleepy. Later visit in the afternoon: restless d/t cramping of exts. Lungs are clear to auscultation Heart is regular rate and rhythm Abdomen is obese soft and nontender Extremities no peripheral edema of his hands arms or his right foot or leg. Nonpitting edema of the dorsum of his left foot and his ankle but the tibia is markedly better and shows only nonpitting edema. The erythema has receded and is fading to a bronze discoloration. He has a Mepilex dressing over the wound which we will have the wound care nurse reevaluate. He has palpable pulses in his feet. Tenderness in Left calf ankle/achilles. Less tenderness at dorsum of left foot. Psych: A&O x 2 Affect appropriate. Objective Last Vital Signs Temp 36.5 C 02/19/23 05:55 Pulse 79 02/19/23 05:55 Resp 18 02/19/23 05:55 BP 160/68 H 02/19/23 05:55 Pulse Ox 96 02/19/23 05:55 Laboratory Results - last 24 hr 02/18/23 02/18/23 02/18/23 06:11 06:11 22:45 WBC 12.56 H RBC 3.51 L Hgb 11.5 L Hct 33.4 L MCV 95 MCH 32.8 MCHC 34.4 RDW 15.4 H Plt Count 403 H MPV 11.0 Immature Gran % See Differential Neutrophils % 64.0 Lymphocytes % 19.0 Monocytes % 14.0 Eosinophils % 2.0 Basophils % 1.0 Nucleated RBC % 2.0 H Absolute Neutrophils 8.04 H Absolute Lymphocytes 2.39 Absolute Monocytes 1.76 H Absolute Eosinophils 0.25 Absolute Basophils 0.13 RBC Morphology Normal Sodium 128 L 127 L Potassium 5.4 H 5.2 H Chloride 94 L 94 L Carbon Dioxide 26.6 22.6 Anion Gap 7.4 10.4 BUN 36 H 41 H Creatinine 1.4 H 1.6 H Est GFR (CKD-EPI 2020) 53.40 45.50 Glucose 243 H 261 H Calcium 8.4 L 8.4 L Magnesium 2.2 2.2 Total Bilirubin 0.8 AST 51 H ALT 74 H Alkaline Phosphatase 501 H Total Protein 9.2 H Albumin 2.3 L 02/18/23 22:45 WBC 12.11 H RBC 3.53 L Hgb 11.6 L Hct 33.4 L MCV 95 MCH 32.9 MCHC 34.7 RDW 15.1 H Plt Count 457 H MPV 9.8 Immature Gran % 1.0 Neutrophils % 68.8 Lymphocytes % 17.7 Monocytes % 11.1 Eosinophils % 1.2 Basophils % 0.2 Nucleated RBC % 0.2 Absolute Neutrophils 8.33 H Absolute Lymphocytes 2.14 Absolute Monocytes 1.34 H Absolute Eosinophils 0.15 Absolute Basophils 0.02 RBC Morphology Sodium Potassium Chloride Carbon Dioxide Anion Gap BUN Creatinine Est GFR (CKD-EPI 2020) Glucose Calcium Magnesium Total Bilirubin AST ALT Alkaline Phosphatase Total Protein Albumin Time Spent with Patient Time Spent with Patient: 35-49 minutes Time was spent: preparing to see the patient(eg.review tests), obtaining and/or reviewing separately otained hiistory, ordering medications,tests, procedures, referring, communicating with other health care management coordinator, indepentently interpreting results, counseling the patient and care coordination
[2023-02-19] MEDS: Doxycycline Hyclate 100 MG CAP PO ×2 (08:15→20:11)
[2023-02-19] MEDS: Losartan 25 MG TAB 50 MG PO (08:15)
[2023-02-19] MEDS: Amoxicillin 875/Clav. 125 TAB PO ×2 (08:15→20:11)
[2023-02-19] MEDS: amLODIPine 5 MG TAB 10 MG PO (08:15)
[2023-02-19] MEDS: Aspirin E.C. 81 MG TABEC PO (08:16)
[2023-02-19] MEDS: Cholecalciferol (Vitamin D3) 1,000 UNIT TAB 2000 UNITS PO (08:16)
[2023-02-19] MEDS: Isosorbide Mononitrate 30 MG TABCR 60 MG PO (08:16)
[2023-02-19] MEDS: Pantoprazole 40 MG TABCR PO (08:16)
[2023-02-19] MEDS: Dofetilide 250 MCG CAP PO ×2 (08:16→20:12)
[2023-02-19] MEDS: Acetaminophen 500 MG TAB PO ×3 (08:16→20:11)
[2023-02-19] MEDS: Spironolactone 25 MG TAB 50 MG PO (08:16)
[2023-02-19] MEDS: Gabapentin 600 MG TAB PO ×3 (08:16→20:11)
[2023-02-19 08:43] LABS: HCT 32.3 % (40.0-50.0); HGB 11.4 g/dL (13.5-17.5); MCH 32.9 pg (27.0-33.0); MCHC 35.3 % (32.0-36.0); MCV 93 fL (80-95); MPV 9.7 fL (8.0-11.0); Platelet Count 470 10^3/uL (130-400); RBC 3.47 10^6/uL (4.36-5.78); RDW 15.1 % (11.8-14.1); RDW-SD 51.7 fL; WBC 12.44 10^3/uL (4.4-10.8)
[2023-02-19 08:50] LABS: Anion Gap 9.1 mmol/L (3-11); BUN 40 mg/dL (7-18); CO2 23.9 mmol/L (21.0-32.0); CREATININE 1.2 mg/dL (0.70-1.30); Calcium 8.7 mg/dL (8.5-10.1); Chloride 95 mmol/L (98-107); Estimated GFR 64.25 (mL/min/1.73m2); Glucose 220 mg/dL (74-106); Potassium 4.7 mmol/L (3.5-5.1); Sodium 128 mmol/L (136-145)
[2023-02-19] MEDS: SODIUM CHLORIDE 3% 500 ML 100 ML IV (10:11)
--- NOTE | 2023-02-19 13:39 | PT.INTREAT ---
Date of service: 02/19/23 Time of Service: 13:14 PT Notes Visit Reasons: Cellulitis, Lactic Acidosis, IDDM Inpatient Physical Therapy Treatment Note [facility] Date: 02/19/23 PRECAUTIONS: Fall, standard, activity as tolerated. SUBJECTIVE: Patient's , daughter and son are present in room. Son reports that yesterday was rough and scary due to episode of cramps, but that patient's wound / infection etc are much improved. Son also reports that patient was able to walk in [place]cke[place] for 50 feet with crutches and SBA. Patient's son also reports patient wore plantar fasciitis boot all night until 4 am. Daughter reports patient has not worn it at all since [address] Lincoln's note recommends patient wear splint as much as tolerable when in bed. OBJECTIVE: Patient long sitting in bed, agreeable to therapy.? PAIN: 6/10 at start of therapy, 8/10 after 2 stairs. VITALS: monitored by nursing staff.? Gait Training (14404d2): Direct one-on-one instruction and skilled instruction in: [x] employing an assistive device [x] movement sequencing [x] turning and movement with proper form [x] Provided verbal cues for equipment management and technique [x] Provided instruction in gait pattern? GAIT? Assistive Device: crutches ? Weight bearing: WBAT LLE Assist: CGA ?STAIRS: Patient ascends and descends 2 six inch stairs with CGA and verbal cues for gait sequence ? Therapeutic Exercises (42199a2): Direct one-on-one instruction in therapeutic exercises to develop strength, endurance, range of motion and flexibility. ?Ambulation ? Assistive Device: Crutches ? Weight bearing: WBAT LLE Assist: SBA ? Distance:? 110 feet, seated rest, 110 feet ? Deviation: Patient demonstrates step-to gait pattern with right leg initially only coming 1/[address] way up the length of left foot. As patient continues ambulation, reports it loosens up gait pattern more step-through although remains antalgic, asymmetrical ? Provided skilled instruction in proper exercise performance Provided skilled manual cues to facilitate proper muscle recruitment and/or form. ASSESSMENT:? Patient greatly improved over the last two days. Will require more gait training with crutches on stairs. PLAN: Continue global treatment per plan of care as patient is able to tolerate. TREATMENT CODE/TIME: 71151 gait 8 minutes, 87505 Ther Ex 16 minutes beginning at 13:14
--- NOTE | 2023-02-19 14:44 | PGE_ITS ---
Date of Service Date of service: 02/19/23 Time of Service: 14:45 Assessment and Plan Assessment and plan (1) Cellulitis of left lower extremity: Status: Acute Assessment and plan: WBC in the 12's x 3days. CRP improved but still considerably elevated. Monitor. MRI of LLE w/o evidence of focal fluid collection, osteomyelitis. Normal signal and size of the musculotendinous structures noted. Dr Lincoln has evaluated. Recommending an aggressive stretching regimen of the left ankle. Plantar fascia brace applied. Stopped Zyvox d/t hyponatremic and zyvox could be the etiology. Spoke with ID at [facility] and recommended either stopping antibiotics now if clinically this appeared to be appropriate but if to continue on oral antibiotics they recommended doxycycline and Levaquin. He is on dofetilide so with the potential interaction with this levaquin, augmentin initiated instead along with the doxycycline. Monitor to be assured that the cellulitis continues to improve. (2) Hyponatremia: Status: Acute Assessment and plan: Stopped Zyvox. Possibly SIADH vs Zyvox related. No excessive fluid intake noted. Monitor. (3) Muscle cramps: Status: Acute Assessment and plan: Likely d/t diuresis. Valium 5mg IV x 1 did not relieve the cramping. Improved after NS 250ml infused. Resolved. (4) Elevated troponin I level: Status: Acute Assessment and plan: Secondary to demand ischemia. Echo shows preserved LV function but mildly dilated right ventricle with preserved RV function. (5) Acute kidney injury superimposed on chronic kidney disease: Status: Acute Assessment and plan: Continues to improve. BUN down to 26 creatinine 1.3. (6) Abnormal transaminases: Status: Acute Assessment and plan: likely secondary to passive congestion from cor pulmonale, sepsis and aggressive fluid hydration related to resuscitation. MRCP was negative for acute biliary pathology although his US did show GB polyp which needs follow up as outpatient (which has been explained to the patient and his family) (7) Acidosis, lactic: Status: Resolved Assessment and plan: secondary to sepsis, now resolved (8) Type 1 diabetes mellitus on insulin therapy: Status: Chronic Assessment and plan: transition to his own insulin pump today if he is able to show he can manage it. He had a low in the 40's in the night last PM; given apple juice and resolved. Now using his insulin pump and CGM; cont checking fingerstick glucose readings today to see if they correlate with his CGM. (9) Cor pulmonale: Status: Acute Assessment and plan: Stable on current regimen of diuretics (lasix 80 mg bid and spironolactone 50 mg daily. Has had his losartan increased to 50 mg daily. Hold lasix d/t cramping of his extremities that could be d/t diureses. (10) CORONARY ARTERY DISEASE: Assessment and plan: his troponin leak was secondary to sepsis and demand ischemia, nevertheless he did have some CP during this hospitalizaton which may have been angina. He was started on Imdur 30 mg, then increased to 60 mg daily and discharge him w/ Rx for Imdur and he ought to have outpatient follow up stress MPI but this can be arranged when he gets back to [place]. Hold on resumption of atorvastatin until his transaminase has completely resolved and he has outpatient follow up labs to confirm stability in his LFT (11) RUSSELL on CPAP: Status: Chronic Assessment and plan: Continue CPAP he has required additional oxygen to his CPAP at night per Jen from [facility]. He may need nocturnal oximetry study before dc home to see if he qualifies for home oxygen at night (12) Atrial fibrillation, persistent: Status: Chronic Assessment and plan: Remains in sinus rhythm on current dose of Tikosyn currently fully anticoagulated with Xarelto. His telemetry has been d/c'd (13) DVT prophylaxis: Status: Acute Assessment and plan: On therapeutic xarelto (14) Discharge planning issues: Status: Acute Assessment and plan: patient is full code, anticipate he will need home health w/ P.T. upon dc home. His son will be staying with him and then planning to accompany him back to [place]. Subjective Subjective Patient reports: no new complaints, pain is less, tolerating a regular diet and afebrile; denies diarrhea, nausea, vomiting or shortness of breath Interval history since last seen: No further cramping of any extremity. Continues to be tired; falls asleep easily during discussions with his son and daughter and while I am in the room evaluating him. Exam Narrative Exam Narrative: Gen: Sitting in bed. Awake but eyes begin to shut periodically during discussions. Lungs are clear to auscultation Heart is regular rate and rhythm Abdomen is obese soft and nontender Extremities no peripheral edema of his hands arms or his right foot or leg. Nonpitting edema of the dorsum of his left foot and his ankle but the tibia is markedly better and shows only nonpitting edema. The erythema has receded and is fading to a bronze discoloration. No pain with manipulation of the ankle or compression of the dorsum of foot. He has a Mepilex dressing over the wound which we will have the wound care nurse reevaluate. He has palpable pulses in his feet. Tenderness in Left calf ankle/achilles. Less tenderness at dorsum of left foot. Psych: A&O x 2 Affect appropriate. Objective Last Vital Signs Temp 36.5 C 02/19/23 05:55 Pulse 79 02/19/23 05:55 Resp 18 02/19/23 05:55 BP 160/68 H 02/19/23 05:55 Pulse Ox 96 02/19/23 05:55 Laboratory Results - last 24 hr 02/18/23 02/18/23 02/19/23 22:45 22:45 08:30 WBC 12.11 H 12.44 H RBC 3.53 L 3.47 L Hgb 11.6 L 11.4 L Hct 33.4 L 32.3 L MCV 95 93 MCH 32.9 32.9 MCHC 34.7 35.3 RDW 15.1 H 15.1 H Plt Count 457 H 470 H MPV 9.8 9.7 Immature Gran % 1.0 Neutrophils % 68.8 Lymphocytes % 17.7 Monocytes % 11.1 Eosinophils % 1.2 Basophils % 0.2 Nucleated RBC % 0.2 Absolute Neutrophils 8.33 H Absolute Lymphocytes 2.14 Absolute Monocytes 1.34 H Absolute Eosinophils 0.15 Absolute Basophils 0.02 Sodium 127 L Potassium 5.2 H Chloride 94 L Carbon Dioxide 22.6 Anion Gap 10.4 BUN 41 H Creatinine 1.6 H Est GFR (CKD-EPI 2020) 45.50 Glucose 261 H Calcium 8.4 L Magnesium 2.2 Total Bilirubin 0.8 AST 51 H ALT 74 H Alkaline Phosphatase 501 H Total Protein 9.2 H Albumin 2.3 L 02/19/23 08:30 WBC RBC Hgb Hct MCV MCH MCHC RDW Plt Count MPV Immature Gran % Neutrophils % Lymphocytes % Monocytes % Eosinophils % Basophils % Nucleated RBC % Absolute Neutrophils Absolute Lymphocytes Absolute Monocytes Absolute Eosinophils Absolute Basophils Sodium 128 L Potassium 4.7 Chloride 95 L Carbon Dioxide 23.9 Anion Gap 9.1 BUN 40 H Creatinine 1.2 Est GFR (CKD-EPI 2020) 64.25 Glucose 220 H Calcium 8.7 Magnesium Total Bilirubin AST ALT Alkaline Phosphatase Total Protein Albumin Time Spent with Patient Time Spent with Patient: 25-34 minutes Time was spent: preparing to see the patient(eg.review tests), obtaining and/or reviewing separately otained hiistory, ordering medications,tests, procedures, referring, communicating with other health home care liaison, indepentently interpreting results and counseling the patient
[2023-02-19 14:54] LABS: Sodium 130 mmol/L (136-145)
[2023-02-19 15:17] VITALS: BP 149/63; PULSE 76; TEMP 37; O2SAT 96
[2023-02-19] MEDS: Rivaroxaban 10 MG TABLET 20 MG PO (16:34)
[2023-02-19 23:52] VITALS: BP 166/63; PULSE 82; RESP 18; TEMP 36.6; O2SAT 95
[2023-02-20] MEDS: Levothyroxine 50 MCG TAB PO (05:37)
[2023-02-20 07:05] LABS: HCT 31.5 % (40.0-50.0); MCH 33.2 pg (27.0-33.0); MCHC 34.9 % (32.0-36.0); MCV 95 fL (80-95); MPV 10.2 fL (8.0-11.0); Neutrophils % 68.4; Platelet Count 494 10^3/uL (130-400); RBC 3.31 10^6/uL (4.36-5.78); WBC 13.34 10^3/uL (4.4-10.8)
[2023-02-20 07:06] LABS: Abs Immature Grans 0.07 10^3/uL (0.0-0.06); Absolute Eosinophil Count 0.16 10^3/uL (0.0-0.7); Absolute Lymphocyte Count 2.13 10^3/uL (1.2-3.4); Absolute Neutrophil Count 9.12 10^3/uL (1.2-6.7); Basophils % 0.4; Eosinophils % 1.2; Immature Grans % 0.5; Monocytes % 13.5; Nucleated RBC 0.1 % (0.0-0.3)
[2023-02-20 07:18] VITALS: BP 129/63; PULSE 87; RESP 18; TEMP 36.8; O2SAT 94
[2023-02-20 07:28] LABS: ALT 58 U/L (16-63); AST 47 U/L (15-37); Albumin 2.3 g/dL (3.4-5.0); Alkaline Phosphatase 411 U/L (46-116); Anion Gap 5.1 mmol/L (3-11); BUN 33 mg/dL (7-18); Bilirubin, Total 1.1 mg/dL (0.2-1.0); C-Reactive Protein 6.98 mg/dL (0.0-0.3); CO2 23.9 mmol/L (21.0-32.0); CREATININE 1.2 mg/dL (0.70-1.30); Calcium 8.9 mg/dL (8.5-10.1); Chloride 98 mmol/L (98-107); Estimated GFR 64.25 (mL/min/1.73m2); Glucose 222 mg/dL (74-106); Potassium 5.1 mmol/L (3.5-5.1); Sodium 127 mmol/L (136-145); Total Protein 9.2 g/dL (6.4-8.2)
[2023-02-20 07:40] LABS: Absolute Basophil Count 0.05 10^3/uL (0.0-0.2)
[2023-02-20] MEDS: Pantoprazole 40 MG TABCR PO (08:06)
[2023-02-20] MEDS: Losartan 25 MG TAB 50 MG PO (08:06)
[2023-02-20] MEDS: amLODIPine 5 MG TAB 10 MG PO (08:06)
[2023-02-20] MEDS: Isosorbide Mononitrate 30 MG TABCR 60 MG PO (08:06)
[2023-02-20] MEDS: Acetaminophen 500 MG TAB PO ×4 (08:07→20:10)
[2023-02-20] MEDS: Cholecalciferol (Vitamin D3) 1,000 UNIT TAB 2000 UNITS PO (08:08)
[2023-02-20] MEDS: Dofetilide 250 MCG CAP PO ×2 (08:08→20:10)
[2023-02-20] MEDS: Gabapentin 600 MG TAB PO ×3 (08:08→20:10)
[2023-02-20] MEDS: Doxycycline Hyclate 100 MG CAP PO ×2 (08:08→20:10)
[2023-02-20] MEDS: Aspirin E.C. 81 MG TABEC PO (08:08)
[2023-02-20] MEDS: Spironolactone 25 MG TAB 50 MG PO (08:09)
[2023-02-20] MEDS: Amoxicillin 875/Clav. 125 TAB PO ×2 (08:09→20:10)
[2023-02-20] MEDS: Furosemide 80 MG TAB PO (12:23)
--- NOTE | 2023-02-20 15:16 | CMPROGNOTE_ITS ---
Date of service: 02/20/23 Time of Service: 15:16 Care Management Progress Note Progress Note Text Progress Note Text: S/O: CM spoke with Harris who reviewed events over the weekend. Ted continues to require close monitoring. Per Harris, their family friends have offered them a three bedroom basement apartment in [place] to stay in post discharge. The plan will be for Harris and Samreen to stay with Ted and his at the apartment until their parents are ready to return to [place]. Roxana (P#[phone]) Teds PCP office out of [place], [place] (P#[phone], F#[phone]). A: 72 year old male admitted to [facility] 02/08/23 for Cellulitis, Lactic acidosis, IDDM P: Ted will discharge to a new apartment in [place], where his and son and daughter will be staying with them. He will transport via private vehicle with his family and follow up with his community providers in [place].
[2023-02-20] MEDS: traMADol 50 MG TAB PO (16:01)
[2023-02-20] MEDS: Benzocaine/Menthol LOZG 15/BOX 1 EACH SUC (16:02)
[2023-02-20 16:11] VITALS: BP 156/70; PULSE 85; RESP 18; TEMP 37.1; O2SAT 96
[2023-02-20] MEDS: Rivaroxaban 10 MG TABLET 20 MG PO (16:49)
--- NOTE | 2023-02-20 18:34 | W.PM.PROGNOT ---
Date of Service Date of service: 02/20/23 Time of Service: 18:34 Assessment and Plan Assessment and plan (1) Cellulitis of left lower extremity: Status: Acute Assessment and plan: WBC in the 12's x 3days; now 13. CRP improved but still considerably elevated. Monitor. Clinically much better. MRI of LLE w/o evidence of focal fluid collection, osteomyelitis. Normal signal and size of the musculotendinous structures noted. Dr Lincoln has evaluated. Recommending an aggressive stretching regimen of the left ankle. Plantar fascia brace applied. Stopped Zyvox d/t hyponatremic and zyvox could be the etiology. Spoke with ID at [facility] [place] and recommended either stopping antibiotics now if clinically this appeared to be appropriate but if to continue on oral antibiotics they recommended doxycycline and Levaquin. He is on dofetilide so with the potential interaction with this levaquin, augmentin initiated instead along with the doxycycline. Monitor to be assured that the cellulitis continues to improve. (2) Hyponatremia: Status: Acute Assessment and plan: Stopped Zyvox. Possibly SIADH vs Zyvox related. No excessive fluid intake noted. 02/19: 30ml hypertonic saline infused and Na increased to 130 02/19: Na back to 127. 60ml hypertonic saline infused. Lasix restarted Lab in AM (3) Muscle cramps: Status: Acute Assessment and plan: Likely d/t diuresis. Valium 5mg IV x 1 did not relieve the cramping. Improved after NS 250ml infused. Resolved. (4) Elevated troponin I level: Status: Acute Assessment and plan: Secondary to demand ischemia. Echo shows preserved LV function but mildly dilated right ventricle with preserved RV function. (5) Acute kidney injury superimposed on chronic kidney disease: Status: Acute Assessment and plan: Continues to improve. BUN down to 26 creatinine 1.2. (6) Abnormal transaminases: Status: Acute Assessment and plan: likely secondary to passive congestion from cor pulmonale, sepsis and aggressive fluid hydration related to resuscitation. ALT normalized and AST near normal. MRCP was negative for acute biliary pathology although his US did show GB polyp which needs follow up as outpatient (which has been explained to the patient and his family) (7) Acidosis, lactic: Status: Resolved Assessment and plan: secondary to sepsis, now resolved (8) Type 1 diabetes mellitus on insulin therapy: Status: Chronic Assessment and plan: Now on his insulin pump and CGM His son is monitoring the patients use and finds the patient is making errors. Last night he went into the pump program and it shows he attempted to calibrate x 2. Unknown why he might have thought he needed to do this; likely just out of confusion. His cognition and level of alertness is improving and there is hope that his ability to manage the pump and CGM will improve. (9) Cor pulmonale: Status: Acute Assessment and plan: This has been stable on his diuretic regimen. He has continue spironolactone. Lasix now decreased to 80mg daily. Has had his losartan increased to 50 mg daily. Held lasix d/t cramping of his extremities that could be d/t diureses. Again, lasix restarted but at 80mg daily rather than BID (10) CORONARY ARTERY DISEASE: Assessment and plan: his troponin leak was secondary to sepsis and demand ischemia, nevertheless he did have some CP during this hospitalizaton which may have been angina. He was started on Imdur 30 mg, then increased to 60 mg daily and discharge him w/ Rx for Imdur and he ought to have outpatient follow up stress MPI but this can be arranged when he gets back to [place]. Hold on resumption of atorvastatin until his transaminase has completely resolved and he has outpatient follow up labs to confirm stability in his LFT (11) RUSSELL on CPAP: Status: Chronic Assessment and plan: Continue CPAP he has required additional oxygen to his CPAP at night per Jen from [facility]. He may need nocturnal oximetry study before dc home to see if he qualifies for home oxygen at night (12) Atrial fibrillation, persistent: Status: Chronic Assessment and plan: Remains in sinus rhythm on current dose of Tikosyn currently fully anticoagulated with Xarelto. His telemetry has been d/c'd (13) DVT prophylaxis: Status: Acute Assessment and plan: On therapeutic xarelto (14) Discharge planning issues: Status: Acute Assessment and plan: He and his that has advanced Alzheimers will be staying with their 2 children that have rented an apartment in the house of a friend for them all to stay in until they deem the patient able to travel back to [place]. Subjective Subjective Patient reports: no new complaints, feels better and afebrile; denies nausea, vomiting or shortness of breath Interval history since last seen: Less tired today. Exam Narrative Exam Narrative: Gen: Sitting in bed. Stays awake during a rather long visit. , son and daughter present. Lungs are clear to auscultation Heart is regular rate and rhythm Abdomen is obese soft and nontender Extremities no peripheral edema of his hands arms or his right foot or leg. Nonpitting edema of the dorsum of his left foot and his ankle but the tibia is markedly better and shows only nonpitting edema. The erythema has receded and is fading to a bronze discoloration. No pain with manipulation of the ankle or compression of the dorsum of foot. He has a Mepilex dressing over the wound; removed and the erythema of the area where the blister was debrided is less inflammed appear. No exudate. Psych: A&O x 2 Affect appropriate. Objective Last Vital Signs Temp 37.1 C 02/20/23 16:11 Pulse 85 02/20/23 16:11 Resp 18 02/20/23 16:11 BP 156/70 H 02/20/23 16:11 Pulse Ox 96 02/20/23 16:11 Laboratory Results - last 24 hr 02/20/23 02/20/23 06:05 06:05 WBC 13.34 H RBC 3.31 L Hgb 11.0 L Hct 31.5 L MCV 95 MCH 33.2 H MCHC 34.9 RDW 15.0 H Plt Count 494 H MPV 10.2 Immature Gran % 0.5 Neutrophils % 68.4 Lymphocytes % 16.0 Monocytes % 13.5 Eosinophils % 1.2 Basophils % 0.4 Nucleated RBC % 0.1 Absolute Neutrophils 9.12 H Absolute Lymphocytes 2.13 Absolute Monocytes 1.80 H Absolute Eosinophils 0.16 Absolute Basophils 0.05 Sodium 127 L Potassium 5.1 Chloride 98 Carbon Dioxide 23.9 Anion Gap 5.1 BUN 33 H Creatinine 1.2 Est GFR (CKD-EPI 2020) 64.25 Glucose 222 H Calcium 8.9 Total Bilirubin 1.1 H AST 47 H ALT 58 Alkaline Phosphatase 411 H C-Reactive Protein 6.98 H Total Protein 9.2 H Albumin 2.3 L Time Spent with Patient Time Spent with Patient: 35-49 minutes Time was spent: preparing to see the patient(eg.review tests), obtaining and/or reviewing separately otained hiistory, ordering medications,tests, procedures, referring, communicating with other health pediatric care coordinator, indepentently interpreting results and counseling the patient
[2023-02-21] MEDS: Levothyroxine 50 MCG TAB PO (05:18)
--- NOTE | 2023-02-21 05:20 | PT.INTREAT ---
Date of service: 02/20/23 Time of Service: 09:30 PT Notes Visit Reasons: Cellulitis, Lactic Acidosis, IDDM Date: 02/20/23 ?PRECAUTIONS: Fall, standard, activity as tolerated. ?SUBJECTIVE: Pt in bed when approached for therapy this morning, Pt just got done walking around the big loop and was resting, pt son and daughter present and was able to walk with their father, pt reports pain on the ball of the big toe, reports wearing the plantar fasciitis boot all night. ?OBJECTIVE: Patient in bed, refused out of bed activity due to fatigue, agreeable to stretching of the left LE.?PAIN: 8/10 ball of the big toe. ?VITALS: monitored by nursing staff.?? Manual Therapy [id number] 25mins: Hands-on techniques to Modulate pain Increase joint range of motion Reduce or eliminate soft tissue swelling, inflammation, or restriction Facilitate relaxation and improve contractile and non-contractile tissue extensibility. Treatment: Supine isolated gastroc and soleous stretch, followed by pt education/family about pressure sore prevention by doing 2hour checks on bony prominence on sole of left foot, stretching and STM to improve flexibility and circulation, elevation for proper alignment while in bed. ASSESSMENT:? Pt's son able to perform stretching and body alignment in bed appropriately. ?PLAN: Continue global treatment per plan of care as patient is able to tolerate. ?TREATMENT CODE/TIME: 69569 Manual therapy 25minutes, 9:30-9:55am
[2023-02-21 06:51] LABS: Abs Immature Grans 0.04 10^3/uL (0.0-0.06); Absolute Basophil Count 0.09 10^3/uL (0.0-0.2); Absolute Eosinophil Count 0.26 10^3/uL (0.0-0.7); Absolute Monocyte Count 1.78 10^3/uL (0.1-0.8); Absolute Neutrophil Count 4.75 10^3/uL (1.2-6.7); Basophils % 0.9; Eosinophils % 2.7; HCT 32.2 % (40.0-50.0); Immature Grans % 0.4; Lymphocytes % 28.1; MCH 32.8 pg (27.0-33.0); MCHC 34.2 % (32.0-36.0); MCV 96 fL (80-95); MPV 10.1 fL (8.0-11.0); Monocytes % 18.5; Neutrophils % 49.4; Nucleated RBC 0.5 % (0.0-0.3); Platelet Count 498 10^3/uL (130-400); RBC 3.35 10^6/uL (4.36-5.78); RDW 15.2 % (11.8-14.1); RDW-SD 53.8 fL; WBC 9.62 10^3/uL (4.4-10.8)
[2023-02-21 06:58] VITALS: BP 156/72; PULSE 81; TEMP 36.5; O2SAT 97
[2023-02-21 07:09] LABS: Anion Gap 7.3 mmol/L (3-11); BUN 36 mg/dL (7-18); CO2 24.7 mmol/L (21.0-32.0); CREATININE 1.3 mg/dL (0.70-1.30); Calcium 9.1 mg/dL (8.5-10.1); Chloride 98 mmol/L (98-107); Estimated GFR 58.37 (mL/min/1.73m2); Glucose 265 mg/dL (74-106); Potassium 5.4 mmol/L (3.5-5.1); Sodium 130 mmol/L (136-145)
[2023-02-21 07:52] LABS: Diff Comment Agrees w/ Instrument; RBC Morphology Normal
[2023-02-21] MEDS: Cholecalciferol (Vitamin D3) 1,000 UNIT TAB 2000 UNITS PO (08:13)
[2023-02-21] MEDS: Isosorbide Mononitrate 30 MG TABCR 60 MG PO (08:13)
[2023-02-21] MEDS: Amoxicillin 875/Clav. 125 TAB PO ×2 (08:13→21:19)
[2023-02-21] MEDS: amLODIPine 5 MG TAB 10 MG PO (08:13)
[2023-02-21] MEDS: Doxycycline Hyclate 100 MG CAP PO ×2 (08:13→21:19)
[2023-02-21] MEDS: Spironolactone 25 MG TAB 50 MG PO (08:14)
[2023-02-21] MEDS: Losartan 25 MG TAB 50 MG PO (08:14)
[2023-02-21] MEDS: Gabapentin 600 MG TAB PO ×3 (08:14→21:19)
[2023-02-21] MEDS: Furosemide 80 MG TAB PO (08:14)
[2023-02-21] MEDS: Dofetilide 250 MCG CAP PO ×2 (08:14→21:19)
[2023-02-21] MEDS: Aspirin E.C. 81 MG TABEC PO (08:15)
[2023-02-21] MEDS: Acetaminophen 500 MG TAB PO ×4 (08:15→21:19)
[2023-02-21] MEDS: Pantoprazole 40 MG TABCR PO (08:16)
[2023-02-21] MEDS: Normal Saline 250 ML 500 ML IV (09:48)
--- NOTE | 2023-02-21 10:59 | RESPIRATORY ---
Pt is currently using his home unit during this hospitalization, it's an AirSense 10 Auto-Set min 11/max 16 on RA. The DME is [employer] and he uses a [employer]Med Nasal Pillow.
--- NOTE | 2023-02-21 11:03 | PT.INTREAT ---
Date of service: 02/21/23 Time of Service: 10:40 PT Notes Visit Reasons: Cellulitis, Lactic Acidosis, IDDM Inpatient Physical Therapy Treatment Note [facility] Date: 02/21/23 PRECAUTIONS: Fall, standard, activity as tolerated SUBJECTIVE: Patient reports feeling pretty good today, hopeful to discharge today. Son reports patient is having some trouble controlling blood sugar levels. OBJECTIVE: Patient supine in bed, agreeable to therapy. Son and daughter also present in room. ? PAIN: 0/10 at rest, 2/10 at end of treatment. VITALS: monitored by nursing staff BED MOBILITY/TRANSFERS? Rolling L/R: independent Supine-sit: independent ? Sit-supine: independent ? Sit-stand: independent ? Stand-sit: independent ? Bed-Chair: independent ? Chair-bed: independent Gait Training ([id number]): Direct one-on-one instruction and skilled instruction in: [x] employing an assistive device [x] movement sequencing [x] Provided verbal cues for equipment management and technique [x] Provided instruction in gait pattern? GAIT? Assistive Device: 2 crutches, 1 crutch, no AD ? Weight bearing: WBAT Assist: standby ? Distance:? 600 feet with 1 seated rest ? Deviation: Patient's tomasz, step height, step length, step symmetry all remarkably improved. Patient becomes slightly antalgic after 100 feet without AD, corrects with use of 1 crutch. ?Patient's balance is good without AD at least on level ground indoors. ? STAIRS: ascends and descends 6 six inch stairs with bilateral crutches, requires verbal cues to remember appropriate gait sequence. ? ASSESSMENT:? Patient tolerates therapy well PLAN: All goals met, consult with PT Laura Carlisle about updated goals. Patient to discharge in the next day or two when medically cleared by provider. TREATMENT CODE/TIME: 23 minutes beginning at 10:40
--- NOTE | 2023-02-21 11:25 | NUR.NOTE ---
Pt c/o cramping. Potassium 5.4. freight service inspector notified. 250cc bolus given and cramping relieved. Per charge manager, stated the plan is to decrease lasix dose to 40mg daily. Will continue to monitor. Nursing Note:
[2023-02-21 14:00] VITALS: BP 115/57; PULSE 67; TEMP 37; O2SAT 98
[2023-02-21] MEDS: Rivaroxaban 10 MG TABLET 20 MG PO (17:20)
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
[2023-02-21 23:44] VITALS: BP 153/53; PULSE 63; RESP 18; TEMP 36.9; O2SAT 98
[2023-02-22] MEDS: Levothyroxine 50 MCG TAB PO (06:21)
[2023-02-22 07:28] VITALS: BP 135/63; PULSE 64; RESP 18; TEMP 36.3; O2SAT 96
[2023-02-22] MEDS: Cholecalciferol (Vitamin D3) 1,000 UNIT TAB 2000 UNITS PO (07:32)
[2023-02-22] MEDS: Isosorbide Mononitrate 30 MG TABCR 60 MG PO (07:32)
[2023-02-22] MEDS: Dofetilide 250 MCG CAP PO ×2 (07:32→20:34)
[2023-02-22] MEDS: Gabapentin 600 MG TAB PO ×3 (07:33→20:34)
[2023-02-22] MEDS: Spironolactone 25 MG TAB 50 MG PO (07:33)
[2023-02-22] MEDS: Losartan 25 MG TAB 50 MG PO (07:33)
[2023-02-22] MEDS: Amoxicillin 875/Clav. 125 TAB PO ×2 (07:33→20:34)
[2023-02-22] MEDS: Aspirin E.C. 81 MG TABEC PO (07:33)
[2023-02-22] MEDS: Acetaminophen 500 MG TAB PO ×4 (07:33→20:34)
[2023-02-22] MEDS: Pantoprazole 40 MG TABCR PO (07:33)
[2023-02-22] MEDS: Doxycycline Hyclate 100 MG CAP PO ×2 (07:33→20:34)
[2023-02-22 07:35] LABS: BUN 46 mg/dL (7-18); CREATININE 1.4 mg/dL (0.70-1.30); Calcium 9.1 mg/dL (8.5-10.1); Chloride 99 mmol/L (98-107); Glucose 163 mg/dL (74-106); Potassium 4.6 mmol/L (3.5-5.1); Sodium 132 mmol/L (136-145)
[2023-02-22] MEDS: amLODIPine 10 MG TAB PO (07:40)
--- NOTE | 2023-02-22 12:37 | PDOC.CMPRO ---
Date of service: 02/22/23 Time of Service: 12:38 Care Management Progress Note Progress Note Text Progress Note Text: S/O: Ted continues to require close monitoring. Plan remains for Harris and Samreen to stay with Ted and his at the apartment until their parents are ready to return to [place]. Roxana (P#[phone]) Teds PCP office out of [place], [place] (P#[phone], F#[phone]). A: 72 year old male admitted to [facility] 02/08/23 for Cellulitis, Lactic acidosis, IDDM P: Ted will discharge to a new apartment in [place], where his and son and daughter will be staying with them. He will transport via private vehicle with his family and follow up with his community providers in [place].
[2023-02-22 15:15] VITALS: BP 123/62; PULSE 61; RESP 18; TEMP 37.2; O2SAT 94
[2023-02-22 15:43] LABS: C-Reactive Protein 3.95 mg/dL (0.0-0.3)
--- NOTE | 2023-02-22 16:15 | INPN_ITS ---
Date of service: 02/22/23 Time of Service: 10:10 PT Notes Visit Reasons: Cellulitis, Lactic Acidosis, IDDM Physical Therapy Inpatient Progress Note Date: 02/22/2023 Dates of Service: 02/14/23 through 02/22/23 Referring Doctor: Ryan Alvarado MD PT Orders: PT CONSULT: Extended stay weakness Precautions: Fall. Standard. Activity as tolerated. Patient Profile/Admitting Diagnosis:? Ted is a 72-year-old male s/p pancreatectomy and splenectomy who presented to the ED on 02/08/2023 due to confusion and fever.? Patient is admitted for management of cellulitis of left lower extremity, sepsis, elevated troponin level, acute kidney injury superimposed on CKD, lactic acidosis, cor pulmonale, and atrial fibrillation. 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 Benign hypertension CORONARY ARTERY DISEASE Diabetes mellitus Hyperlipidemia Paroxysmal atrial fibrillation Surgical History? EXCISION? (09/10/08) ununited fracture fragment tip of olecranon as well as bursa left elbow Fasciectomy, [place] (09/10/08) NODULAR ON THE LEFT History of pancreatectomy Post-splenectomy Repair, Rotator Cuff (09/12/12) RIGHT Stent placement 2000, 2011 Social History/Home Situation: Lives with in a private home.? Independent with all aspects of ADLs prior to admission.? Son who lives in [facility] and daughter from [place] are both here providing assistance.? Patient is the primary caregiver of who has dementia.? Patient has had a history of stroke 2-1/2 years ago but has not been using any assistive device. Equipment Owned/DME: None Subjective: Patient and family are looking forward to going home to a friend's house today and then to [place] eventually when things are all set there for patient. Reports no pain in the L leg and foot with weight bearing. Did indicate swelling on the heel and the inner side of the leg above the ankle. Son and daughter concerned about tenderness in the L heel that started yesterday from use of splint as they do not want any new skin issue to occur. Objective: General Observation: Resting in bed.? Telemetry monitoring in place.? IV access through left UE.? Erythema and swelling to the left UE and foot resolved.? Mental Status: Alert and oriented as to person, place, time, and purpose. Able to pay attention, focus, and respond appropriately. Pain: As above Vital Signs: WNL throughout ROM: Right Upper Extremity: ? Shoulder Flexion WFL. Shoulder abduction WFL. Elbow flexion WFL. Wrist flexion WFL. Functional opening and closing of hand WFL. Left Upper Extremity:? Shoulder Flexion WFL. Shoulder abduction WFL. Elbow flexion WFL. Wrist flexion WFL. Functional opening and closing of hand WFL. Right Lower Extremity: Hip flexion WFL. Hip abduction WFL. Knee flexion WFL. Ankle dorsiflexion WFL. Ankle plantarflexion WFL. Left Lower Extremity: Hip flexion WFL. Hip abduction WFL. Knee flexion WFL. Ankle dorsiflexion to neutral only. Ankle plantarflexion WFL. Ankle inversion WFL. Ankle eversion WFL. Strength: Right Upper Extremity: Shoulder flexors 4/5. Shoulder abductors 4/5. Elbow flexors 5/5. Elbow extensors 5/5. 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 Left Upper Extremity: Shoulder flexors 4/5. Shoulder abductors 4/5. Elbow flexors 5/5. Elbow extensors 5/5. 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 Right Lower Extremity: Hip flexors 4/5. Hip abductors 4/5. Knee flexors 5/5. Knee extensors 5/5. Ankle dorsiflexors 4/5. Ankle plantarflexors 4/5. Left Lower Extremity: Hip flexors 4/5. Hip abductors 4/5. Knee flexors 3/5. Knee extensors 3/5. Ankle dorsiflexors 3-/5. Ankle plantarflexors 3/5. Ankle invertors 4-/5. Ankle evertors 4-/5. Bed Mobility/Transfers: Supine to sit independent Sit to supine supervision Sit to stand supervision Stand to sit supervision Bed to reclining chair supervision Reclining chair to bed supervision Gait: Guidance and instruction provided with AD use/management with following device: SBQC: 250 feet with supervision SPC: 350 feet with supervision Balance: Static Sitting: Normal Dynamic Sitting: Normal Static Standing: Fair Dynamic Standing: Fair Special Tests: Mobility Limitations Standardized Measure [facility] 6 clicks Basic Mobility Inpatient Short Form: Raw Score: 24 ? CMS Score: 0% deficit? ? ? Informed Consent/Education:? Patient and family was instructed and provided guidance with use of splint: Use for up to 6 hours and allow at least 15 minutes of no splint and move about afte r 2 hours of use to maintain integrity of skin and prevent any new breakdown from arising. Instructed on self stretching of L quadriceps using a step. Recommended continued functional mobility progression, strengthening, and contracture management at home and then at outpatient as appropriate. THERA EX: L talocrural and subtalar joint mobilization to increase dorsiflexion: Grade II distraction and Grade II oscillation x 2 minutes Volar glide of tibia on talus at tibiotalar joint to increased DF x 2 minutes Dorsal glide of talus on calcaneus at subtalar joint to increase DF x 2 minutes Passive stretching to L gastrocsoleus muscle for total of 3 minutes to increase DF DF and PF x 10 Inversion and eversion x 10 ASSESSMENT: Functional mobility progression from using the FWW to just supervision assist with the single point cane from SOC to today demonstrating meaningful improvement. Patient will continue to require PT at home and at an outpatient basis to address remaining impairments below. Patient presents with clinical signs and symptoms consistent with current/admitting diagnoses that have resulted to mobility limitations, gait instability, generalized weakness, and overall ADL decline as demonstrated by the following impairment level findings: 1.? Decreased strength to?L DFors 2.? Flexible PF contracture 3.? Impaired activity tolerance 4.? Limitation of joint range of motion in L ankle DF to neutral only 5.? Erythema and swelling in L leg and foot (RESOLVED) Impairments are contributing to the following functional limitations: 1.? Difficulty with ambulation without assistive device 2.? Increased completion time for mobility ADL performance Patient is assessed as a 40537 moderate complexity based on the following: History: 71-year-old male with past medical history as indicated above Examination: Need for continued L ankle PF contacture management and L ankle major muscle group strengthening Presentation: Stable Decision Makin low complexity Goals: Goals X1 week 1. Supine-Sit independent NOT MET, CONTINUE 2. Sit-Supine independent NOT MET, CONTINUE 3. Sit-Stand independent NOT MET, CONTINUE 4. Stand-Sit independent with no AD NOT MET, CONTINUE 5. Bed-Chair independent with no AD NOT MET, CONTINUE 6. Chair-Bed independent with no AD NOT MET, CONTINUE 7. Independent gait on level surface with use of no AD for at least 300 feet without report of pain nor dyspnea NOT MET, CONTINUE 8. Independent stair negotiation while holding onto B rails for at least 5 steps without report of pain nor dyspnea NOT MET, CONTINUE 9. Independent with home exercise program NOT MET, CONTINUE 10. Good static and dynamic standing balance/tolerance NOT MET, CONTINUE Plan of Care/Treatment Plan: 1x/day for continued PT sintevention. Proceed with L PF flexible contracture management and with functional mobility progression. DISCHARGE RECOMMENDATIONS: [] ? Home with no services [] [X] ? Home with services. Patient will benefit from home health PT services in order to progress mobility level using no AD and continue with L PF flexible contracture management. [] ? Home with outpatient PT [] [] ? SNF for continued rehabilitation [] [] ? [facility] [] [] ? SNF versus LTC based on ability to participate and progress [] TREATMENT CODE/TIME: 99393 x 25 minutes (2 units) , 41613 x 17 minutes (1 unit) beginning at 10:10 AM. Thank you for the opportunity to participate in the care of this patient. Laura Carlisle PT, DPT, CLT [facility] [place], [place]
[2023-02-22] MEDS: Rivaroxaban 10 MG TABLET 20 MG PO (16:28)
--- NOTE | 2023-02-22 16:49 | PGE_ITS ---
Date of Service Date of service: 02/22/23 Time of Service: 16:49 Assessment and Plan Assessment and plan (1) Cellulitis of left lower extremity: Status: Acute Assessment and plan: WBC, procalcitonin normal. CRP is much better (lab just came back). Much improved. Continue PO doxycycline/augmentin with plan for discharge home tomororw. Continue PT/stretches of L ankle. (2) Hyponatremia: Status: Acute Assessment and plan: ? due to zyvox. Stable/improving. Continue to monitor off of zyvox. Stopped Zyvox. 02/19: 30ml hypertonic saline infused and Na increased to 130 02/19: Na back to 127. 60ml hypertonic saline infused. Continue lasix at 40 mg PO daily for now. (3) Muscle cramps: Status: Acute Assessment and plan: Seems to have resolved. was due to overdiuresis and resolved with IVF. (4) Elevated troponin I level: Status: Acute Assessment and plan: Secondary to demand ischemia. No wall motion abnormalities on echo. No further ischemic workup is planned at this time. (5) Acute kidney injury superimposed on chronic kidney disease: Status: Resolved Assessment and plan: Cr back to baseline. Monitor on diuretics. (6) Abnormal transaminases: Status: Acute Assessment and plan: likely secondary to congestive hepatopathy. MRCP negative. Will need to have GB polyp followed up as outpatient. (7) Acidosis, lactic: Status: Resolved Assessment and plan: secondary to sepsis and/or congestive hepatopathy, now resolved. (8) Type 1 diabetes mellitus on insulin therapy: Status: Chronic Assessment and plan: Continue insulin pump/CGM. (9) Cor pulmonale: Status: Acute Assessment and plan: Continue furosemide 40 mg PO daily. (10) CORONARY ARTERY DISEASE: Assessment and plan: As above (11) RUSSELL on CPAP: Status: Chronic Assessment and plan: Continue CPAP No need for nocturnal oximetry, per RT - has not required O2 w/ CPAP. (12) Atrial fibrillation, persistent: Status: Chronic Assessment and plan: Continue Tikosyn, Xarelto. In NSR. (13) DVT prophylaxis: Status: Acute Assessment and plan: On therapeutic xarelto (14) Discharge planning issues: Status: Acute Assessment and plan: Plan for d/c home tomorrow. Will eventually travel to [place]. Subjective Subjective Interval history since last seen: Mr Escobar feels better. No dizziness, CP, SOB, n/v. Mobility of the left foot is getting better. Ambulating with a cane. Exam Narrative Exam Narrative: General: Pleasant male who is laying comfortably in bed, family at bedside, A&OX3, NAD HEENT: EOMI, MMM Heart: RRR, no m/r/g Lungs: CTAB Abdomen: soft, nontender, nondistended Extremities: Distal LLE, excluding the foot, is dressed - c/d/i Objective Last Vital Signs Temp 37.2 C 02/22/23 15:15 Pulse 61 02/22/23 15:15 Resp 18 02/22/23 15:15 BP 123/62 02/22/23 15:15 Pulse Ox 94 02/22/23 15:15 Laboratory Results - last 24 hr 02/22/23 02/22/23 06:10 06:10 Sodium 132 L Potassium 4.6 Chloride 99 Carbon Dioxide 25.0 Anion Gap 8.0 BUN 46 H Creatinine 1.4 H Est GFR (CKD-EPI 2020) 53.40 Glucose 163 H Calcium 9.1 C-Reactive Protein 3.95 H Time Spent with Patient Time Spent with Patient: 25-34 minutes Time was spent: preparing to see the patient(eg.review tests), obtaining and/or reviewing separately otained hiistory, ordering medications,tests, procedures, referring, communicating with other health child care coordinator, indepentently interpreting results, counseling the patient and care coordination
[2023-02-22 19:11] VITALS: BP 127/65; PULSE 67; RESP 16; TEMP 36.7; O2SAT 97
[2023-02-22 22:21] LABS: Lab Add On Test DONE
[2023-02-23] MEDS: Levothyroxine 50 MCG TAB PO (06:30)
[2023-02-23 07:17] LABS: Abs Immature Grans 0.04 10^3/uL (0.0-0.06); Absolute Basophil Count 0.12 10^3/uL (0.0-0.2); Absolute Lymphocyte Count 2.55 10^3/uL (1.2-3.4); Absolute Monocyte Count 1.01 10^3/uL (0.1-0.8); Absolute Neutrophil Count 4.59 10^3/uL (1.2-6.7); Basophils % 1.4; Eosinophils % 3.5; HCT 28.9 % (40.0-50.0); HGB 10.2 g/dL (13.5-17.5); Immature Grans % 0.5; Lymphocytes % 29.6; MCH 33.3 pg (27.0-33.0); MCHC 35.3 % (32.0-36.0); MCV 94 fL (80-95); MPV 9.5 fL (8.0-11.0); Monocytes % 11.7; Neutrophils % 53.3; Nucleated RBC 0.9 % (0.0-0.3); Platelet Count 547 10^3/uL (130-400); RBC 3.06 10^6/uL (4.36-5.78); RDW 14.8 % (11.8-14.1); RDW-SD 51.4 fL; WBC 8.61 10^3/uL (4.4-10.8)
[2023-02-23 07:35] LABS: Anion Gap 9.2 mmol/L (3-11); BUN 36 mg/dL (7-18); C-Reactive Protein 2.32 mg/dL (0.0-0.3); CO2 21.8 mmol/L (21.0-32.0); CREATININE 1.3 mg/dL (0.70-1.30); Calcium 8.8 mg/dL (8.5-10.1); Chloride 98 mmol/L (98-107); Estimated GFR 58.37 (mL/min/1.73m2); Glucose 299 mg/dL (74-106); Magnesium 1.8 mg/dL (1.8-2.4); Potassium 5.4 mmol/L (3.5-5.1); Sodium 129 mmol/L (136-145)
[2023-02-23 07:46] VITALS: BP 145/68; PULSE 78; RESP 17; TEMP 36.2; O2SAT 95
[2023-02-23] MEDS: Gabapentin 600 MG TAB PO (08:44)
[2023-02-23] MEDS: Cholecalciferol (Vitamin D3) 1,000 UNIT TAB 2000 UNITS PO (08:44)
[2023-02-23] MEDS: amLODIPine 10 MG TAB PO (08:44)
[2023-02-23] MEDS: Pantoprazole 40 MG TABCR PO (08:45)
[2023-02-23] MEDS: Spironolactone 25 MG TAB 50 MG PO (08:45)
[2023-02-23] MEDS: Amoxicillin 875/Clav. 125 TAB PO (08:45)
[2023-02-23] MEDS: Acetaminophen 500 MG TAB PO ×2 (08:45→12:14)
[2023-02-23] MEDS: Aspirin E.C. 81 MG TABEC PO (08:45)
[2023-02-23] MEDS: Losartan 25 MG TAB 50 MG PO (08:46)
[2023-02-23] MEDS: Dofetilide 250 MCG CAP PO (08:46)
[2023-02-23] MEDS: Doxycycline Hyclate 100 MG CAP PO (08:46)
[2023-02-23] MEDS: Isosorbide Mononitrate 30 MG TABCR 60 MG PO (08:46)
--- NOTE | 2023-02-23 11:00 | DSE_ITS ---
Date of service: 02/23/23 Time of Service: 11:00 DS: Diagnosis Discharge Diagnosis (1) Cellulitis of left lower extremity: Status: Acute (2) Hyponatremia: Status: Acute (3) Muscle cramps: Status: Acute (4) Elevated troponin I level: Status: Acute (5) Acute kidney injury superimposed on chronic kidney disease: Status: Resolved (6) Abnormal transaminases: Status: Acute (7) Acidosis, lactic: Status: Resolved (8) Type 1 diabetes mellitus on insulin therapy: Status: Chronic (9) Cor pulmonale: Status: Acute (10) CORONARY ARTERY DISEASE: (11) RUSSELL on CPAP: Status: Chronic (12) Atrial fibrillation, persistent: Status: Chronic (13) Gallbladder polyp: Status: Acute Discharge Plan Disposition Patient Disposition: Home Condition: Improving Discharge Details Reason For Visit: Cellulitis, Lactic Acidosis, IDDM Admit Date/Time: 02/08/23 20:04 Admit Provider: Ryan Alvarado Attending Provider: Ryan Alvarado Primary Care Provider: Tanner Oconnor [facility] Hospital Course: Mr Escobar is a 72 year old male with PMHx of insulin-dependent DM on insulin pump, as well as h/o Afib on dofetilide and xarelto, h/o CVA, CAD s/p MA and stents x4 in [place], CHFpEF, RUSSELL on CPAP, who was admitted to [facility] hospitalist service on 02/08/23 with sepsis due to cellulitis of his LLE. He was initiated on empiric vancomycin and zosyn as well as IVF. However, he became fluid overloaded within a few hours of being on IVF and required a transfer to the ICU on 02/09/23 for acute hypoxic respiratory failure, requiring up to 10 L of O2, which resolved with IV diuresis and CPAP therapy. Due to edema in BLEs, DVT BLEs was ruled out, and edema responded to diuresis. The patient had been persistently febrile, but blood cultures done on 02/08 and 02/09/23 were negative to date. He did briefly require vasopressors on the night of 02/09/23 until 02/10/23, but with insertion of an arterial line, it became evident that his BPs were actually higher than the ones obtained by the cuff and we were able to discontinue vasopressor therapy. CT LLE was obtained on 02/09/23 to rule out an abscess, necrotizing infection, or osteomyelitis and showed lymphadenopathy and evidence of cellulitis, but nothing that would require surgical intervention.Antibiotics were changed to zosyn and zyvox, then meropenem + zyvox. MRI of the LLE also ruled out osteomyelitis and abscess. While his leucocytosis was slow to improve, his other markers of inflammation were improving and, clinically, the patient improved steadily on this therapy. Orthopedics were consulted on 02/15/[address] Lincoln evaluating the patient and, again, not finding anything on imaging or clinically that would require surgical intervention. 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 Zyvox was stopped on 02/17/23 due to hyponatremia. ID at [facility] recommended attempting switch to oral antibiotics and, due to interactions of dofetilide with fluoroquinolones, we picked augmentin + doxycycline as his therapy. While on this therapy, the patient's leucocytosis resolved and his CRP continued to improve. As far as hyponatremia, the likely causes could be SIADH, fluid status, zyvox, pseudohyponatremia of hyperglycemia. The sodium did improve, but he did require hypertonic saline on 02/19/23. He was restarted on furosemide which was temporarily held due to overdiuresis, and his glycemic control was tightened. His corrected sodium on the day of discharge is 132. His sodium and renal function will need to be followed up as outpatient. His Cr is 1.3 on the day of discharge, and he is being discharged on 40 mg of furosemide PO daily with instructions to weigh himself daily and to double his dose of furosemide if he has gained 3 lbs or greater in 3 days. The patient did have an KEVIN on CKD which resolved with treatment on infection and tolerated diuresis. He had a borderline elevated troponin and a fleeting chest pain on the night of 02/12/23-02/13/23. This was felt to be demand ischemia and cor pulmonale. The echo did not reveal wall motion abnormalities but did show a dilated RV. Since fluid status was felt to be the cause for demand ischemia, this was intensified with a furosemide drip. He had imdur added as well as a PPI for possible coronary and GI causes of chest pain. Once he has completed therapy for his infection, an MPI stress test could be considered as outpatient. He was noted to have transaminitis which we believe to be due to passive congestion of the liver. Hepatitis panel was negative. In the workup of transaminitis, however, we did find a gallbladder polyp, which will need to be followed up as outpatient. MRCP was negative. As far as his insulin management, the patient had been taken off of his insulin pump on admission and converted to basal bolus insulin which we had titrated to euglycemia. As his infection was improving, we were able to downtitrate the insulins and eventually convert him back to the insulin pump. From the physical therapy stand point, the patient is ambulating well and is being discharged home with a cane. He is medically stable to be discharged home today with 5 more days of antibiotics. He should have bloodwork on 02/27/23 (CBC w/ diff, BMP, LFTs, magnesium, CRP). Results should go to his local PCP, Dr Oconnor. For wound care, he is supposed to use mepilex to LLE opening daily. I do think it would be keith for the patient to follow up with vascular surgery as he has a weaker dorsalis pedis pulse in his L foot. Care for patient as well as completion of his discharge summary on day of discharge took 90 minutes. Home Meds and New Rx's Prescriptions: New doxycycline hyclate 100 mg Capsule 100 mg PO BID Qty: 10 0RF isosorbide mononitrate 30 mg Tablet Extended Release 24 Hr 60 mg PO DAILY Qty: 60 0RF acetaminophen 500 mg Tablet 500 mg PO QID PRN PRNQty: 0 0RF pantoprazole 40 mg Tablet,Delayed Release (Dr/Ec) 40 mg PO DAILY@0730 Qty: 30 0RF amoxicillin-pot clavulanate 875-125 mg Tablet 1 tab PO BID Qty: 10 0RF losartan 50 mg tablet 50 mg PO DAILY Qty: 30 0RF spironolactone 25 mg tablet 25 mg PO DAILY Qty: 30 0RF Continued nitroglycerin 0.4 MG tablet, sublingual 0.4 mg Sublingual PRN Patient Comments: 09/09/13- pt has not taken for 2-3 yrs amlodipine 10 MG tablet 10 mg PO DAILY aspirin 81 MG tablet,delayed release (DR/EC) 81 mg PO DAILY AM Humalog U-100 Insulin 100 UNIT/1 ML cartridge 100 unit SQ PER PROTOCOL Patient Comments: basal dose: 37 units/day CHO sliding scale: 6- 8:1 (variable, less at evening meal) rosuvastatin [Crestor] 20 MG tablet 20 mg PO DAILY AM levothyroxine [Tirosint] 50 MCG capsule 50 mcg PO DAILY dofetilide [Tikosyn] 250 mcg Capsule 250 mcg PO Q12H gabapentin 600 mg tablet 600 mg PO 3XD Patient Comments: TAKE 1 TABLET BY MOUTH THREE TIMES DAILY clobetasol 15 GM cream 15 gm Topical DIRECTED cholecalciferol (vitamin D3) [Vitamin D3] 2,000 UNIT tablet 2,000 unit PO DAILY Xarelto 20 MG tablet 20 mg PO QPM Changed furosemide 80 MG tablet 40 mg PO DAILY Qty: 0 0RF Discontinued hydrochlorothiazide 12.5 mg capsule 12.5 mg PO DAILY losartan 100 MG tablet 100 mg PO DAILY Discharge Instructions Instructions: Doxycycline (By mouth), Amoxicillin/Clavulanate Potassium (By mouth), Heart Failure (DC), Acute Kidney Injury (DC), Cellulitis (GEN), Lactic Acidosis (GEN) Additional Instructions: Finish your antibiotics as prescribed. Follow a 2 gram sodium diet. Return to the hospital with any fever, bleeding, chest pain, or shortness of breath. Follow up with your PCP in 1-2 weeks. Wound care: mepilex to wound L leg every 3 days. Weigh yourself daily. Double your furosemide dose x 1 day (to 80 mg daily) if you have gained 3 lbs in 3 days. Talk to your PCP if you are continuing to gain weight or start to feel short of breath despite this. Stand Alone Forms: Nursing Discharge Form Activity:: Activity as Tolerated Equipment/Supplies:: a cane Diet:: Low Sodium Discharge Orders Discharge Orders: Discharge Order (Routine); Ordered 02/23/23 Ordered By: Josette Gallego Other Ambulatory Orders: Basic Metabolic Panel (Routine) Timeframe: 20230227 Location: Determined by Patient Ordered By: Josette Gallego Complete Blood Count w/Diff (Routine) Timeframe: 20230227 Location: Determined by Patient Ordered By: Josette Gallego Liver Panel (Routine) Timeframe: 20230227 Location: Determined by Patient Ordered By: Josette Gallego Magnesium (Routine) Timeframe: 20230227 Location: Determined by Patient Ordered By: Josette Gallego C-Reactive Protein (Routine) Timeframe: 20230227 Location: Determined by Patient Ordered By: Josette Gallego DS: Summary Time Spent with Patient providing and/or coordinating discharge services: Greater than 30 minutes Status at Discharge Functional status at discharge: uses cane/walker Overall status at discharge: patient is progressing back to baseline Mental Status: mental status grossly normal Speech and Movement: speech and movement normal Mood: congruent mood Affect: normal affect Exam Narrative Exam Narrative: General: Pleasant male who is laying comfortably in bed, family at bedside, A&OX3, NAD HEENT: EOMI, MMM Heart: RRR, no m/r/g Lungs: CTAB Abdomen: soft, nontender, nondistended Extremities: Distal LLE, excluding the foot, is dressed - c/d/i Psych Mental Status: mental status grossly normal Speech and Movement: speech and movement normal Mood: congruent mood Affect: normal affect DS: Data Vitals/I&O Vitals and I&O: Vital Signs Temperature 36.2 C L 02/23/23 07:46 Temperature Source Tympanic 02/23/23 07:46 Pulse 78 02/23/23 07:46 Pulse Rhythm Irregular 02/23/23 10:16 Pulse 79 02/16/23 12:00 Respiratory Rate 17 02/23/23 07:46 Respiratory Effort Normal 02/23/23 10:16 Respiratory Depth Normal 02/23/23 10:16 Respiratory Pattern Normal 02/23/23 10:16 Blood Pressure 145/68 H 02/23/23 07:46 Blood Pressure Mean 86 02/14/23 21:52 Blood Pressure Position Supine 02/14/23 09:34 Pulse Oximetry 95 02/23/23 07:46 Oxygen Delivery Method Room Air 02/23/23 07:46 Oxygen Flow Rate 0 02/23/23 07:46 Fraction of Inspired Oxygen (FIO2) 21 02/22/23 08:39 Pain Level 0 02/23/23 10:16 Comment BP called over radio 02/23/23 07:46 Arterial Systolic 156 02/11/23 12:00 Arterial Diastolic 59 02/11/23 12:00 Arterial Mean 86 02/11/23 12:00 Intake & Output 02/22/23 02/22/23 02/23/23 11:59 23:59 11:59 Output Total 500 / 1200 700 / 1200 200 / 200 Balance -500 / -1200 -700 / -1200 -200 / -200 Weight 84.8 kg Output: Urine 500 / 1200 700 / 1200 200 / 200 Other: Urine Color Yellow Yellow Yellow Urine Appearance Clear Clear Clear Urine Odor None Normal None Stool Size Small Voiding Methods Urinal Toilet Data Completed and Pending Completed studies during hospitalization [Text1]: XR tib/fib 02/08/23: Soft tissue swelling.? No acute osseous findings. CXR 02/08/23: No acute pulmonary findings. CXR 02/09/23: There are now symmetrical increased interstitial markings throughout both lung jauregui.? No obvious pleural effusions.? Recommend nonportable PA and lateral views when clinically possible. Echo 02/09/23: Normal left ventricular wall thickness and chamber size.? Ejection fraction is 55%.? Wall motion is normal Mildly dilated right ventricle with preserved systolic function Normal left atrial size.? The right atrium is mildly enlarged Aortic valve is sclerotic and trileaflet with mild regurgitation Normal mitral valve with trace to mild regurgitation Right ventricular systolic pressure could not be estimated Venous dopplers 02/09/23: Right: Negative for DVT Left: Negative for DVT CT LLE 02/09/23: There is diffuse edema of the soft tissues of the left lower leg without evidence of a discrete abscess and no evidence of osteomyelitis.? Findings are consistent with diffuse cellulitis.? There are prominent lymph nodes in the ipsilateral left inguinal region. CXR 02/12/23: Suspect subtle infiltrate in the right upper lobe. Cardiomegaly.? No pulmonary edema.? No obvious pleural effusions. CTA chest 02/12/23: 1. No evidence of pulmonary embolism, thoracic aortic dissec tion or aneurysm.? 2. Bilateral pleural effusions and subjacent infiltrates which may represent atelectasis or pneumonia.? Please correlate clinically. CT head 02/13/23: 1. No acute intracranial process.? 2. An acute infarct may not be visualized in the 1st 24-48 hours.? An MRI may be obtained for further evaluation if clinically appropriate. MRA LLE 02/13/23: 1. Cellulitis of the lower extremity.? No evidence of a focal fluid collection to suggest an abscess. 2. No findings to suggest osteomyelitis. 3. Normal signal and size of the musculotendinous structures.? US abdomen 02/14/23: 1.? There is a 4 millimeter polyp in the gallbladder.? No shadowing gallstones nor gallbladder wall edema.? No pericholecystic fluid.? CBD diameter is upper normal. 2.? Spleen is surgically absent.? Apparently the majority of the pancreas is also predominately surgically absent.? It was difficult to adequately visualize the pancreatic head due to overlying bowel gas.? Pancreatic head was only partially included on the lower most images of the chest CT scan 02/12/2023.? The visualized pancreatic head and part of the uncinate process on that study appear unremarkable but are not completely included.? If clinically indicated further study with CT scan can be performed. 3.? There is no ascites. MRI abdomen 02/14/23: 1. No evidence of biliary ductal dilatation. 2. Status post partial pancreatectomy and splenectomy. 3. Small right pleural effusion and possible tiny left pleural effusion.? Labs on day of discharge: Labs from last 24 hours 02/23/23 02/23/23 02/22/23 06:52 06:52 06:10 WBC 8.61 RBC 3.06 L Hgb 10.2 L Hct 28.9 L MCV 94 MCH 33.3 H MCHC 35.3 RDW 14.8 H Plt Count 547 H MPV 9.5 Immature Gran % 0.5 Neutrophils % 53.3 Lymphocytes % 29.6 Monocytes % 11.7 Eosinophils % 3.5 Basophils % 1.4 Nucleated RBC % 0.9 H Absolute Neutrophils 4.59 Absolute Lymphocytes 2.55 Absolute Monocytes 1.01 H Absolute Eosinophils 0.30 Absolute Basophils 0.12 Sodium 129 L Potassium 5.4 H Chloride 98 Carbon Dioxide 21.8 Anion Gap 9.2 BUN 36 H Creatinine 1.3 Est GFR (CKD-EPI 2020) 58.37 Glucose 299 H Calcium 8.8 Magnesium 1.8 C-Reactive Protein 2.32 H 3.95 H Add-On Test Request 02/22/23 06:10 WBC RBC Hgb Hct MCV MCH MCHC RDW Plt Count MPV Immature Gran % Neutrophils % Lymphocytes % Monocytes % Eosinophils % Basophils % Nucleated RBC % Absolute Neutrophils Absolute Lymphocytes Absolute Monocytes Absolute Eosinophils Absolute Basophils Sodium Potassium Chloride Carbon Dioxide Anion Gap BUN Creatinine Est GFR (CKD-EPI 2020) Glucose Calcium Magnesium C-Reactive Protein Add-On Test Request DONE [facility] All Active Problems (Updated 02/23/23 @ 11:00 by Josette Gallego MD) Gallbladder polyp (Acute) Muscle cramps (Acute) Arthrosis of left ankle (Acute) Hyponatremia (Acute) Abnormal transaminases (Acute ~02/11/23) Elevated troponin I level (Acute) Cor pulmonale (Acute) KEVIN (acute kidney injury) (Acute) Right ventricular dilation (Acute) Volume overload (Acute) Discharge planning issues (Acute) DVT prophylaxis (Acute) RUSSELL on CPAP (Chronic) Acute CHF (Acute) Cellulitis of left lower extremity (Acute) Sepsis (Acute) 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) Atrial fibrillation, persistent (Chronic) Hypothyroidism (acquired) (Chronic) Hypomagnesemia (Acute) Type 1 diabetes mellitus on insulin therapy (Chronic) Cellulitis (Acute) Fever (Acute) Hypokalemia (Acute) Nausea & vomiting (Acute) Leukocytosis (Acute) Insulin dependent type 2 diabetes mellitus, controlled (Acute) Right clavicle fracture (Acute 04/03/19) DJD (degenerative joint disease) of knee (Acute 03/15/13) Medical History Benign hypertension CORONARY ARTERY DISEASE CVA (cerebral vascular accident) Diabetes mellitus Hyperlipidemia Paroxysmal atrial fibrillation Surgical History EXCISION (09/10/08) ununited fracture fragment tip of olecranon as well as bursa left elbow Fasciectomy, Palmar (09/10/08) NODULAR ON THE LEFT History of pancreatectomy Post-splenectomy Repair, Rotator Cuff (09/12/12) RIGHT Stent placement 2011 Social History Smoking/Tobacco Use Status: Never Smoking risk assessment performed?: Yes Alcohol Intake: former Drug use: Never Housing: house Current gender identity: female Do you feel safe at home: Yes Do you feel safe in your relationship?: Yes Time Spent with Patient Time Spent with Patient: >85 minutes Time was spent: preparing to see the patient(eg.review tests), obtaining and/or reviewing separately otained hiistory, ordering medications,tests, procedures, referring, communicating with other health childcare center administrator, indepentently interpreting results, counseling the patient and care coordination
--- NOTE | 2023-02-23 11:26 | PDOC.CMDIS ---
Date of service: 02/23/23 Time of Service: 11:26 LACE Index Scoring Tool Questions: Length of Stay (in days): 14 or more Was the patient admitted via the E.D.?: Yes Comorbidities: Diabetes w/o Complication, Congestive Heart Failure and Liver or Renal Disease E.D. Visits: 0 Answers: Total Score: 15 Risk of Readmission: High Risk Care Management Discharge Plan Reason for Hospitalization: Cellulitis, lactic acidosis, IDDM Discharge Plan: Ted will discharge to a new apartment in [place], where his and son and daughter will be staying with them. He will transport via private vehicle with his family and follow up with his community providers in [place]. [facility] faxed DC Summary to [facility] office out of [place], [place] (P#[phone], F#[phone]). Patient/Family Education Needs: Review discharge instructions, discuss Ask Me Three.
--- NOTE | 2023-02-25 07:26 | PT.INDS ---
PT Notes Visit Reasons: Cellulitis, Lactic Acidosis, IDDM Physical Therapy Inpatient Discharge Summary Date: 02/25/2023 Dates of Service: 02/14/23 through 02/22/23 This document serves as a summary of care. No PT services were provided on this date. Referring Doctor: Ryan Alvarado MD PT Orders: PT CONSULT: Extended stay weakness Precautions: Fall. Standard. Activity as tolerated. Patient Profile/Admitting Diagnosis:? Ted is a 72-year-old male s/p pancreatectomy and splenectomy who presented to the ED on 02/08/2023 due to confusion and fever.? Patient was admitted for management of cellulitis of left lower extremity, sepsis, elevated troponin level, acute kidney injury superimposed on CKD, lactic acidosis, cor pulmonale, and atrial fibrillation. He participated in PT intervention from 02/14/23 - 02/22/23, and although PT goals were not fully met, was able to demonstrate sufficient safety and functional mobility to return home with family support. 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 Benign hypertension CORONARY ARTERY DISEASE Diabetes mellitus Hyperlipidemia Paroxysmal atrial fibrillation Surgical History? EXCISION? (09/10/08) ununited fracture fragment tip of olecranon as well as bursa left elbow Fasciectomy, Palmar (09/10/08) NODULAR ON THE LEFT History of pancreatectomy Post-splenectomy Repair, Rotator Cuff (09/12/12) RIGHT Stent placement 2000, 2011 Social History/Home Situation: Lives with in a private home.? Independent with all aspects of ADLs prior to admission.? Son who lives in [facility] and daughter from [place] are both here providing assistance.? Patient is the primary caregiver of who has dementia.? Patient has had a history of stroke 2-1/2 years ago but has not been using any assistive device. Equipment Owned/DME: None Subjective: none obtained Objective: ROM: Right Upper Extremity: ? Shoulder Flexion WFL. Shoulder abduction WFL. Elbow flexion WFL. Wrist flexion WFL. Functional opening and closing of hand WFL. Left Upper Extremity:? Shoulder Flexion WFL. Shoulder abduction WFL. Elbow flexion WFL. Wrist flexion WFL. Functional opening and closing of hand WFL. Right Lower Extremity: Hip flexion WFL. Hip abduction WFL. Knee flexion WFL. Ankle dorsiflexion WFL. Ankle plantarflexion WFL. Left Lower Extremity: Hip flexion WFL. Hip abduction WFL. Knee flexion WFL. Ankle dorsiflexion to neutral only. Ankle plantarflexion WFL. Ankle inversion WFL. Ankle eversion WFL. Strength: Right Upper Extremity: Shoulder flexors 4/5. Shoulder abductors 4/5. Elbow flexors 5/5. Elbow extensors 5/5. Litigation Partner strong. Left Upper Extremity: Shoulder flexors 4/5. Shoulder abductors 4/5. Elbow flexors 5/5. Elbow extensors 5/5. Litigation Partner strong. Right Lower Extremity: Hip flexors 4/5. Hip abductors 4/5. Knee flexors 5/5. Knee extensors 5/5. Ankle dorsiflexors 4/5. Ankle plantarflexors 4/5. Left Lower Extremity: Hip flexors 4/5. Hip abductors 4/5. Knee flexors 3/5. Knee extensors 3/5. Ankle dorsiflexors 3-/5. Ankle plantarflexors 3/5. Ankle invertors 4-/5. Ankle evertors 4-/5. Bed Mobility/Transfers: Supine to sit independent Sit to supine supervision Sit to stand supervision Stand to sit supervision Bed to reclining chair supervision Reclining chair to bed supervision Gait: Guidance and instruction provided with AD use/management with following device: SBQC: 250 feet with supervision SPC: 350 feet with supervision Balance: Static Sitting: Normal Dynamic Sitting: Normal Static Standing: Fair Dynamic Standing: Fair Special Tests: Mobility Limitations Standardized Measure [facility] 6 clicks Basic Mobility Inpatient Short Form: Raw Score: 24 ? CMS Score: 0% deficit? ? ? Informed Consent/Education:? Patient and family was instructed and provided guidance with use of splint: Use for up to 6 hours and allow at least 15 minutes of no splint and move about after 2 hours of use to maintain integrity of skin and prevent any new breakdown from arising. Instructed on self stretching of L quadriceps using a step. Recommended continued functional mobility progression, strengthening, and contracture management at home and then at outpatient as appropriate. ASSESSMENT: Functional mobility progression from using the FWW to just supervision assist with the single point cane. Patient will continue to require PT at home and at an outpatient basis to address remaining impairments below. Goals: Goals X1 week 1. Supine-Sit independent NOT MET, CONTINUE 2. Sit-Supine independent NOT MET, CONTINUE 3. Sit-Stand independent NOT MET, CONTINUE 4. Stand-Sit independent with no AD NOT MET, CONTINUE 5. Bed-Chair independent with no AD NOT MET, CONTINUE 6. Chair-Bed independent with no AD NOT MET, CONTINUE 7. Independent gait on level surface with use of no AD for at least 300 feet without report of pain nor dyspnea NOT MET, CONTINUE 8. Independent stair negotiation while holding onto B rails for at least 5 steps without report of pain nor dyspnea NOT MET, CONTINUE 9. Independent with home exercise program NOT MET, CONTINUE 10. Good static and dynamic standing balance/tolerance NOT MET, CONTINUE Plan of Care/Treatment Plan: D/C from PT services in acute care setting. DISCHARGE RECOMMENDATIONS: [X] ? Home with services. Patient will benefit from home health PT services in order to progress mobility level using no AD and continue with L PF flexible contracture management. TREATMENT CODE/TIME: none Thank you for the opportunity to participate in the care of this patient. Jillain Matrini, PT, DPT [facility] [place], [place]
== END 2023-02-23 14:03 | disposition home or self-care (01) | DRG 871 ==
LOC: ER 20:57 → MS 21:39 → ICU 02-09 08:52 → MS 02-13 11:21 → ICU 02-14 10:55 → MS 02-15 13:32
PROVIDERS: Emergency Medicine; Family Medicine; Internal Medicine; Admitting Provider Internal Medicine; Emergency Provider Emergency Medicine Emergency Medical Services; PCP Family Medicine; Visit Provider Internal Medicine
DX: A41.9 Sepsis, unspecified organism (principal); J96.01 Acute respiratory failure with hypoxia; R65.21 Severe sepsis with septic shock; L03.116 Cellulitis of left lower limb; I48.19 Other persistent atrial fibrillation; E89.1 Postprocedural hypoinsulinemia; N17.9 Acute kidney failure, unspecified; I13.0 Hypertensive heart and chronic kidney disease with heart failure and stage 1 through stage 4 chronic kidney disease, or unspecified chronic kidney disease; I24.8 Other forms of acute ischemic heart disease; E87.1 Hypo-osmolality and hyponatremia; L97.821 Non-pressure chronic ulcer of other part of left lower leg limited to breakdown of skin; E87.21 Acute metabolic acidosis; R11.2 Nausea with vomiting, unspecified; E87.6 Hypokalemia; E83.42 Hypomagnesemia; E03.9 Hypothyroidism, unspecified; Z90.411 Acquired partial absence of pancreas; Z79.4 Long term (current) use of insulin; Z96.41 Presence of insulin pump (external) (internal); D72.829 Elevated white blood cell count, unspecified; I25.10 Atherosclerotic heart disease of native coronary artery without angina pectoris; E78.5 Hyperlipidemia, unspecified; Z90.81 Acquired absence of spleen; G47.33 Obstructive sleep apnea (adult) (pediatric); E87.79 Other fluid overload; I50.9 Heart failure, unspecified; I25.2 Old myocardial infarction; Z86.73 Personal history of transient ischemic attack (TIA), and cerebral infarction without residual deficits; N18.9 Chronic kidney disease, unspecified; E13.22 Other specified diabetes mellitus with diabetic chronic kidney disease; I27.81 Cor pulmonale (chronic); R07.89 Other chest pain; Z95.5 Presence of coronary angioplasty implant and graft; R74.01 Elevation of levels of liver transaminase levels; R25.2 Cramp and spasm; M24.672 Ankylosis, left ankle; K82.4 Cholesterolosis of gallbladder
CPT/HCPCS: 97597; 36620; 36410; 36415; 36416; 71275; 80048; 80053; 80076; 82550; 82805; 82962; 84145; 85027; 86704; 86709; 86803; 87040; 87081; 87340; 87426; 87637; 93005; 93306; 93308; 93971; 94640; 96361; 96365; 96366; 96368; 96375; 96376; 97110; 97112; 97116; 97140; 97162; 97530; 99223; 99232; 99285; 36600; 70450; 71045; 71046; 73590; 73701; 73720; 74181; 76700; 80202; 81003; 81015; 82248; 82977; 83605; 83615; 83735; 83880; 84132; 84295; 84439; 84443; 84484; 85025; 85610; 85730; 86140; 87070; 87205; 93010; 93970; 94660; 94664; 94668; 94760; 99233; 99239; 99284; 99291; J1170; J1885; J1940; J2270; J2543; J3360; J3480; J3490; J7613